=== PATIENT | female | born 1935 | race Caucasian/White ===

== ENCOUNTER → 2020-05-06 14:17 | Outpatient (BNVA) | payer MEDICARE, SELFPAY | PROVIDERS: Family Provider Family Medicine; Referring Provider Dermatology; Visit Provider Dermatology | DX: L57.0 Actinic keratosis (principal); L82.1 Other seborrheic keratosis; R23.3 Spontaneous ecchymoses; L72.0 Epidermal cyst; Z85.820 Personal history of malignant melanoma of skin | CPT/HCPCS: 99203 ==

== ENCOUNTER → 2020-07-07 13:23 | Outpatient (BNVA) | payer MEDICARE, SELFPAY | PROVIDERS: Family Provider Family Medicine; Visit Provider Dermatology | DX: D48.5 Neoplasm of uncertain behavior of skin (principal); L72.0 Epidermal cyst; L82.1 Other seborrheic keratosis; L57.0 Actinic keratosis; D48.9 Neoplasm of uncertain behavior, unspecified | CPT/HCPCS: 11102; 17000; 88304; 99213 ==

== ENCOUNTER → 2021-08-25 13:51 | Outpatient (BNVA) | payer MEDICARE, SELFPAY | PROVIDERS: Family Provider Family Medicine; Visit Provider Nurse Practitioner Family | DX: Z20.822 Contact with and (suspected) exposure to COVID-19 (principal); J06.9 Acute upper respiratory infection, unspecified | CPT/HCPCS: 87635 ==

== ENCOUNTER 2021-08-29 11:57 | Outpatient (CLI) | payer MEDICARE, SELFPAY ==
[2021-08-29 11:52] VITALS: BMI 19.3
[2021-08-29 12:10] VITALS: BP 142/70; PULSE 76; RESP 18; TEMP 36.8; O2SAT 98
[2021-08-29 12:51] VITALS: BP 138/71; PULSE 74; RESP 18; TEMP 37.4; O2SAT 96
[2021-08-29 13:52] VITALS: BP 152/71; PULSE 72; RESP 18; TEMP 36.4; O2SAT 98
== END 2021-08-29 11:58 | disposition home or self-care (01) ==
PROVIDERS: PCP Family Medicine; Visit Provider Nurse Practitioner Family
DX: U07.1 COVID-19 (principal)
CPT/HCPCS: 96365

== ENCOUNTER 2022-08-07 13:27 | Outpatient (CLI) | payer MEDICARE, SELFPAY ==
--- NOTE | 2022-08-07 13:35 | CTR_ITS ---
PROCEDURE INFORMATION: Exam: CT Chest Without Contrast; Diagnostic Exam date and time: 08/07/2022 1:47 PM Age: 87 years old Clinical indication: Cough; Prior surgery; Surgery type: RT breast; Patient HX: HX of melanoma; Additional info: Bronchiectasis, chronic cough TECHNIQUE: Imaging protocol: Diagnostic computed tomography of the chest without contrast. Radiation optimization: All CT scans at this facility use at least one of these dose optimization techniques: automated exposure control; mA and/or kV adjustment per patient size (includes targeted exams where dose is matched to clinical indication); or iterative reconstruction. COMPARISON: 1. CT chest wo con [id number] 03/06/2018 1:[address] angio chest PE protcl [id number] 04/06/2018 8:[address] chest w con* [id number] 11/28/2017 8:20 AM RADIATION DOSE METRICS: Total DLP (mGy-cm): 476.76 FINDINGS: Thyroid: 8 mm nodule lower pole left lobe of the thyroid not significantly changed. Consider non urgent thyroid ultrasound for evaluation if clinically indicated. Lungs: There is chronic atelectasis and scarring of the lingula with air bronchograms not significantly changed since 07/20/2017. There is new rounded atelectasis and consolidation anterior right middle lobe. Patchy pulmonary opacities, areas of bronchial wall thickening and tree-in-bud type centrilobular nodular opacities are seen worrisome for some bronchitis or infectious bronchiolitis. Follow-up imaging is suggested when the patient's condition has cleared to document clearing of all of the pulmonary nodular opacities. There is calcified granuloma right lower lobe. Pleural spaces: There is small right pleural effusion. There is a small right pleural effusion and possibly tiny left pleural effusion. Heart: Unremarkable. No cardiomegaly. No pericardial effusion. Lymph nodes: There are calcified hilar and mediastinal lymph nodes in keeping with old granulomatous disease. There are small mediastinal lymph nodes not significantly changed. Largest precarinal lymph node measures 13 x 20 mm which is similar to the previous exam. Vasculature: Unremarkable. No aortic aneurysm. Bones/joints: There is mild wedging compression deformity of T5 and moderate wedging compression of T8, these changes appear chronic but are new compared with 04/06/2018. Please correlate with the clinical exam. Soft tissues: Unremarkable. CT/CT chest wo con [id number] IMPRESSION: 1. Findings of bronchitis and bronchiolitis 2. Small right pleural effusion 3. Chronic scarring and atelectasis in the lingula 4. Small right pleural effusion 5. 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
== END 2022-08-07 13:28 | disposition home or self-care (01) ==
PROVIDERS: PCP Family Medicine; Visit Provider Internal Medicine
DX: J47.9 Bronchiectasis, uncomplicated (principal); M31.7 Microscopic polyangiitis; R04.2 Hemoptysis; J18.9 Pneumonia, unspecified organism; J21.9 Acute bronchiolitis, unspecified; J90 Pleural effusion, not elsewhere classified; M80.08XS Age-related osteoporosis with current pathological fracture, vertebra(e), sequela
CPT/HCPCS: 71250

== ENCOUNTER → 2022-09-15 10:12 | Day surgery (SDC) | payer MEDICARE, SELFPAY ==
[2022-09-15 10:30] VITALS: BP 132/71; PULSE 75; RESP 18; TEMP 36.7; O2SAT 93
[2022-09-15] MEDS: cefepime 1,000 MG in sodium chloride 0.9% (plus) 50 ML 100 MG IV (11:30)
[2022-09-15 12:15] LABS: Basophils % 0.1 %; Eosinophils # 0.1 10^3/uL (0.0-0.8); Eosinophils % 0.3 %; Hematocrit 35.3 % (37.0-47.0); Hemoglobin 11.3 g/dL (11.5-15.3); Lymphocytes # 1.3 10^3/uL (0.8-4.8); Mean Corpuscular Hemoglobin 30.2 pg (28.0-34.0); Mean Corpuscular Volume 94.4 fl (81-99); Mean Platelet Volume 9.3 fL (7.4-10.4); Monocytes # 0.5 10^3/uL (0.2-0.9); Monocytes % 3.5 %; Neutrophils # 12.67 10^3/uL (1.8-7.7); Neutrophils % 86.5 %; Nucleated Red Blood Cells % 0 %; Platelet Count 369 10^3/cmm (130-400); Red Blood Count 3.74 10^6/uL (4.1-5.3); Red Cell Distribution Width 14.6 % (12.1-15.1); White Blood Count 14.7 10^3/uL (4.0-10.0)
[2022-09-15 12:44] LABS: Alanine Aminotransferase 13 U/L (0-33); Albumin Level 3.5 g/dL (3.5-5.2); Alkaline Phosphatase 73 U/L (35-105); Anion Gap 13.4 (5-19); Aspartate Amino Transferase 10 U/L (0-32); Blood Urea Nitrogen 32 mg/dL (8-23); Calcium 8.9 mg/dL (8.5-10.5); Carbon Dioxide 29 mmol/L (22-29); Chloride 100 mmol/L (98-107); Globulin 2.9 g/dL (1.3-4.6); Glucose 110 mg/dL (65-115); Osmolality Calculated 294 mOsm/kg (285-295); Potassium 4.4 mmol/L (3.5-5.1); Sodium 138 mmol/L (136-145); Total Bilirubin 0.2 mg/dL (0.15-1.2); Total Protein 6.4 g/dL (6.6-8.7)
== END ==
PROVIDERS: PCP Family Medicine; Visit Provider Internal Medicine
DX: A49.8 Other bacterial infections of unspecified site (principal)
CPT/HCPCS: 36569; 80053; 85025; 96365; C1751; J0692

== ENCOUNTER 2022-09-29 10:00 | Outpatient (RCR) | payer MEDICARE, SELFPAY ==
[2022-09-18 13:20] VITALS: BP 158/87; PULSE 84; RESP 18; TEMP 36.7; O2SAT 95
[2022-09-22 11:09] LABS: Basophils # 0.1 10^3/uL (0.0-0.1); Basophils % 0.4 %; Eosinophils # 0.1 10^3/uL (0.0-0.8); Eosinophils % 0.5 %; Hemoglobin 11.5 g/dL (11.5-15.3); Lymphocytes # 2.3 10^3/uL (0.8-4.8); Lymphocytes % 16.3 %; Mean Corpuscular HGB Conc 31.1 g/dL (30.0-36.0); Mean Corpuscular Hemoglobin 29.8 pg (28.0-34.0); Mean Corpuscular Volume 95.9 fl (81-99); Mean Platelet Volume 9.5 fL (7.4-10.4); Monocytes # 0.5 10^3/uL (0.2-0.9); Monocytes % 3.4 %; Neutrophils % 78.5 %; Nucleated Red Blood Cells % 0 %; Platelet Count 464 10^3/cmm (130-400); Red Blood Count 3.86 10^6/uL (4.1-5.3); Red Cell Distribution Width 14.9 % (12.1-15.1); White Blood Count 14.2 10^3/uL (4.0-10.0)
[2022-09-22 11:30] LABS: Alanine Aminotransferase 10 U/L (0-33); Albumin Level 3.6 g/dL (3.5-5.2); Alkaline Phosphatase 71 U/L (35-105); Anion Gap 12.4 (5-19); Aspartate Amino Transferase 14 U/L (0-32); Blood Urea Nitrogen 36 mg/dL (8-23); Calcium 8.9 mg/dL (8.5-10.5); Carbon Dioxide 31 mmol/L (22-29); Chloride 101 mmol/L (98-107); Globulin 3.1 g/dL (1.3-4.6); Glucose 104 mg/dL (65-115); Osmolality Calculated 299 mOsm/kg (285-295); Potassium 4.4 mmol/L (3.5-5.1); Sodium 140 mmol/L (136-145); Total Bilirubin 0.2 mg/dL (0.15-1.2); Total Protein 6.7 g/dL (6.6-8.7)
[2022-09-22 11:33] VITALS: BP 170/74; PULSE 72; RESP 18; TEMP 36.1; O2SAT 97
[2022-09-29 10:14] VITALS: BP 178/75; PULSE 82; RESP 18; TEMP 36.7; O2SAT 95
--- NOTE | 2022-09-29 10:17 | SUR.OPER ---
Pt to GI infusions for removal of midline cath. Midline removed from left upper arm. 10 cm removed with cath intact. No signs and symptoms of infection or bleeding. Pt tolerated well.
== END 2022-10-14 23:59 | disposition home or self-care (01) ==
LOC: GILAB 10:00
PROVIDERS: PCP Family Medicine; Visit Provider Internal Medicine
DX: A49.8 Other bacterial infections of unspecified site (principal)
CPT/HCPCS: 36415; 80053; 85025; 99212

== ENCOUNTER → 2023-03-20 09:44 | Outpatient (BNVA) | payer MEDICARE, SELFPAY | PROVIDERS: PCP Family Medicine; Visit Provider Family Medicine | DX: Z00.00 Encounter for general adult medical examination without abnormal findings (principal); R53.83 Other fatigue; R06.00 Dyspnea, unspecified; H35.51 Vitreoretinal dystrophy; E55.9 Vitamin D deficiency, unspecified; I10 Essential (primary) hypertension; M31.30 Wegener's granulomatosis without renal involvement | CPT/HCPCS: 80053; 80061; 82306; 82607; 83880; 84443; 85025; 85651; 86140; 93306 ==

== ENCOUNTER 2023-05-03 16:42 | Inpatient (IN) | payer MEDICARE, SELFPAY ==
[2023-05-03 16:49] VITALS: BP 176/80; PULSE 87; RESP 22; TEMP 37.6; O2SAT 88
--- NOTE | 2023-05-03 17:45 | XRR_ITS ---
PROCEDURE INFORMATION: Exam: XR Chest Exam date and time: 05/03/2023 6:08 PM Age: 87 years old Clinical indication: Shortness of breath; Additional info: SOB TECHNIQUE: Imaging protocol: Radiologic exam of the chest. Views: 1 view. COMPARISON: CT chest [facility] [id number] 08/07/2022 1:47 PM FINDINGS: Lungs: Emphysematous changes. Bibasilar left greater than right atelectasis versus infiltrate. Pleural spaces: Unremarkable. No pleural effusion. No pneumothorax. Heart/Mediastinum: Unremarkable. No cardiomegaly. Bones/joints: Unremarkable. XR/XR chest 1V portable [id number] IMPRESSION: 1. Bibasilar left greater than right atelectasis versus infiltrate. 2. Emphysematous changes.
[2023-05-03 18:25] LABS: Basophils # 0.1 10^3/uL (0.0-0.1); Basophils % 0.4 %; Eosinophils # 0.2 10^3/uL (0.0-0.8); Eosinophils % 1.2 %; Hematocrit 45.6 % (37.0-47.0); Hemoglobin 14.4 g/dL (11.5-15.3); Lymphocytes # 2.2 10^3/uL (0.8-4.8); Lymphocytes % 13.1 %; Mean Corpuscular HGB Conc 31.6 g/dL (30.0-36.0); Mean Corpuscular Hemoglobin 30.4 pg (28.0-34.0); Mean Corpuscular Volume 96.2 fl (81-99); Mean Platelet Volume 10.5 fL (7.4-10.4); Monocytes # 0.9 10^3/uL (0.2-0.9); Monocytes % 5.5 %; Neutrophils # 13.64 10^3/uL (1.8-7.7); Neutrophils % 79.4 %; Nucleated Red Blood Cells % 0 %; Platelet Count 424 10^3/cmm (130-400); Red Blood Count 4.74 10^6/uL (4.1-5.3); Red Cell Distribution Width 13.8 % (12.1-15.1); White Blood Count 17.1 10^3/uL (4.0-10.0)
[2023-05-03 19:15] VITALS: BP 164/73; PULSE 66; RESP 25; O2SAT 94
[2023-05-03 19:25] LABS: Albumin Level 3.7 g/dL (3.5-5.2); Alkaline Phosphatase 87 U/L (35-105); Anion Gap 12.4 (5-19); Aspartate Amino Transferase 15 U/L (0-32); Blood Urea Nitrogen 25 mg/dL (8-23); Calcium 8.8 mg/dL (8.5-10.5); Carbon Dioxide 31 mmol/L (22-29); Chloride 99 mmol/L (98-107); Globulin 2.7 g/dL (1.3-4.6); Glucose 98 mg/dL (65-115); NT Pro B Type Natriuretic Pept 1814 pg/mL (0-450); Osmolality Calculated 290 mOsm/kg (285-295); Potassium 4.4 mmol/L (3.5-5.1); Sodium 138 mmol/L (136-145); Total Bilirubin 0.3 mg/dL (0.15-1.2); Total Protein 6.4 g/dL (6.6-8.7)
[2023-05-03 19:35] LABS: Alanine Aminotransferase 17 U/L (0-33)
[2023-05-03] MEDS: FUROsemide 10 mg/mL SDV 4mL 40 MG IVP (21:05)
[2023-05-03] MEDS: cefTRIAXone 1,000 MG in sodium chloride 0.9% (plus) 50 ML 100 MG IV (21:05)
--- NOTE | 2023-05-03 21:11 | PM.HP ---
Providers/Chief Complaint Admitting Physician: Jose F Dias MD, hospitalist Primary Care Provider: Chet Stallings MD Chief Complaint: Cough, congestion History of Present Illness Germaine Galvez is a 87 year old female with history of Davi's granulomatosis affecting kidneys and lungs who presents with shortness of breath for the last week or so. She was put on 2 L of oxygen yesterday secondary to this. She has had purulent sputum production. She has had temperature elevations, and some chills. She has had no documented fever or temperature greater than 100.4. She reports no vomiting. She states she is significantly short of breath when moving about and wheezing more than usual. She has been compliant with her medication. She last had antibiotics and steroids, around the first week of March. Review of Systems General: Reports: 10 or more systems reviewed and unremarkable except in HPI and below Card: Denies: chest pain Resp: Reports: dyspnea, productive cough and wheezing GI: Denies: abdominal pain, nausea, vomiting, hematochezia or melena Medications/Allergies Home Medications Medication Instructions Recorded Confirmed Last Taken Type carvedilol 25 mg tablet 25 mg PO BID 05/06/20 03/20/23 09/18/22 History lisinopril 10 mg tablet 5 mg PO DAILY 05/06/20 03/20/23 09/18/22 History brimonidine 0.2 %-timolol 0.5 % 1 drp ophthalmic (eye) BID 05/03/21 03/20/23 09/18/22 History eye drops (Combigan) latanoprost 0.005 % eye drops 1 drp ophthalmic (eye) DAILY 05/09/22 03/20/23 09/18/22 History fluticasone furoate 100 1 inh inhalation DAILY 03/20/23 03/20/23 Unknown History mcg-vilanterol 25 mcg/dose inhalation powder (Breo Ellipta) azithromycin 250 mg tablet See Rx Instructions PO .COMPLEX #6 03/21/23 Unknown Rx (Zithromax Z-Flex) tabs prednisone 20 mg tablet See Rx Instructions .Route 04/09/23 Unknown Rx .COMPLEX #5 tabs Allergies Allergy/AdvReac Type Severity Reaction Status Date / Time sulfamethoxazole Allergy ALGY-Rash Verified 05/03/23 16:56 [From Bactrim] trimethoprim [From Bactrim] Allergy ALGY-Rash Verified 05/03/23 16:56 PFSH Acute PFSH: Medical History Cataract History of malignant melanoma Hypertension Urrutia syndrome Davi's granulomatosis Surgical History H/O lumpectomy H/O: hysterectomy Family History Mother Diabetes Social History Smoking and tobacco status: never smoked Alcohol intake: never Vitals/I&O/Wt Last Vital Signs Temp 99.6 F 05/03/23 16:49 Pulse 66 05/03/23 19:15 Resp 25 H 05/03/23 19:15 BP 164/73 05/03/23 19:15 Pulse Ox 94 05/03/23 19:15 O2 Del Method Room Air 05/03/23 16:49 Weight last 48 hrs Weight 44.452 kg Physical Exam Narrative: General exam is a white female, currently on 2 L of oxygen with a saturation of about 92 percent. According to the emergency department she was less than 88% on room air. HEENT: Atraumatic and normocephalic. Oropharynx clear. Neck is supple no lymphadenopathy or thyromegaly Cardiovascular regular rate and rhythm, heart sounds distant, no murmur Lungs bilateral expiratory wheezes. Rhonchi at the bases. Occasional end expiratory wheeze Abdomen is soft with positive bowel sounds. No obvious organomegaly exam was deferred Extremities no cyanosis, edema, cap refill brisk Skin no rash Neuro no obvious focal deficits Data 05/03/23 18:08 05/03/23 18:47 Other Labs: LFTs are normal BNP elevated at 1814 Albumin, calcium is normal I have ordered a urinalysis Chest x-ray which I reviewed demonstrates left infiltrate. Scarring noted bilaterally consistent with emphysema changes. No evidence of cardiomegaly or fluid overload. No blood culture was obtained A&P Assessment and plan (1) Pneumonia: Patient has an elevated white count, somewhat higher than her normal chronic elevation. She has been feeling ill at home, has hypoxia, is currently requiring 2 L, and an elevated temperature although she has not exceeded above 100.4. An infiltrate is noted on her x-ray, mostly in her left lower lobe. 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 At this point we will give her IV steroids. She has received Solu-Medrol through the emergency department. Continue prednisone 60 mg daily She received Lasix 40 mg IV in the emergency department secondary to elevated BNP. Will not continue at this time. Will assess clinically. BNP elevation likely secondary to pulmonary hypertension from her chronic lung disease. She has had a recent echocardiogram, demonstrating normal EF. She has no evidence of fluid overload on exam. She has past history of Pseudomonas in her sputum. Will initiate Zosyn. Check COVID PCR, sputum culture, MRSA PCR. Budesonide twice daily DuoNeb every 6 hours (2) Davi's granulomatosis: See above (3) Hypoxia: 2 L of oxygen currently, titrate as needed Plan Other medical problems as outlined in past medical history Full code currently Lovenox for DVT prophylaxis Attestations Medical Necessity Statement*: Will require greater than 2 midnights stay secondary to pneumonia requiring IV antibiotics, Davi's granulomatosis history requiring steroids, hypoxia requiring oxygen Diagnoses Pneumonia J18.9 Davi's granulomatosis M31.30 Hypoxia R09.02 Time Spent (min) 51
[2023-05-03] MEDS: methylPREDNISolone sod succ 40 mg SDV 60 MG IVP (21:42)
[2023-05-03 21:59] VITALS: BP 154/66; PULSE 81; RESP 30; O2SAT 92
[2023-05-03 22:37] VITALS: BP 175/81; PULSE 75; RESP 15; TEMP 37.1; O2SAT 95
[2023-05-03] MEDS: piperacillin-tazobactam 3.375 GM in sodium chloride 0.9% (plus) 50 ML IV (22:48)
[2023-05-03] MEDS: enoxaparin 40 mg/0.4 mL Syringe SUBCUT (23:06)
--- NOTE | 2023-05-03 23:51 | ED_ITS ---
HPI - SOB/Dyspnea General: Chief Complaint: Shortness of Breath/Dyspnea Stated Complaint: Cough, congestion Time Seen by Provider: 05/03/23 17:40 History of Present Illness: HPI Narrative: 87-year-old female with complex medical history including Urrutia disease presents emergency room with cough and shortness of breath for the past few days. Patient describes cough as productive cough but denies coughing up blood or vomiting blood. Upon present emergency room patient was found to be hypoxic with any sick contact or recent foreign travel. No recent antibiotics Related Data: Home oxygen amount: 2 liters Review of Systems General: Reports: 10 or more systems reviewed and unremarkable except in HPI and below Resp: Reports: dyspnea and productive cough; Denies: non-productive cough, wheezing, stridor, pain on inspiration or change in phlegm color PFSH ED PFSH: Medical History Cataract History of malignant melanoma Hypertension Urrutia syndrome Davi's granulomatosis Surgical History H/O lumpectomy H/O: hysterectomy Family History Mother Diabetes Social History Smoking and tobacco status: never smoked Alcohol intake: never Physical Exam Const: COMMON NORMALS: no acute distress, average body habitus, patient oriented x3, no limitations, healthy appearing, alert and well nourished HENMT: COMMON NORMALS: normocephalic, atraumatic, hearing grossly normal bilaterally, external ears normal, EAC's normal, TM's normal bilaterally, Normal external nose present, Normal nasal mucous membranes and turbinates present, moist oral mucous membranes, oropharynx normal, dentition normal and gingiva normal HEAD & SCALP: normocephalic and atraumatic NOSE: Normal external nose present and Normal nasal mucous membranes and turbinates present EXTERNAL EAR: Yes external ears normal EXTERNAL AUDITORY CANAL: EAC's normal TYMPANIC MEMBRANE: TM's normal bilaterally Neck/C-Spine: COMMON NORMALS: no JVD Resp: COMMON NORMALS: normal respiratory effort and No retractions AUSCULTATION: no crackles, no rales, no rhonchi, no wheezes, breath sounds present, diminished lung sounds and no bronchial breath sounds Cardio: COMMON NORMALS: no JVD, regular rate, regular rhythm, S1 normal heart sound present, S2 normal heart sound present, No gallops present (Cardio), No clicks present (Cardio), No murmurs present (Cardio), No rub (Cardio) and Peripheral pulses 2+ throughout RATE: regular rate RHYTHM: regular rhythm HEART SOUNDS: S1 normal heart sound present and S2 normal heart sound present PERIPHERAL PULSES: Peripheral pulses 2+ throughout Extremity: COMMON NORMALS: normal to inspection, full ROM, capillary refill normal, no joint enlargement, no clubbing, cyanosis or edema, no calf tenderness and no pedal edema Neuro: COMMON NORMALS: patient oriented x3 SENSORIUM/ORIENTATION: Yes alert Skin: COMMON NORMALS: no rashes or lesions noted, no wounds, turgor normal, no jaundice, no petechiae and no mottling GENERAL SKIN EXAM: no rashes or lesions noted and turgor normal Course Reevaluation(s): Reevaluation #1: Patient improved while on oxygen. Consultations: Consultation #1: Discussed patient with the hospitalist. Vital Signs: Vital signs: Vital Signs Temperature 97.8 F 05/05/23 20:00 Pulse Rate 80 05/05/23 20:13 Respiratory Rate 18 05/05/23 20:13 Blood Pressure 165/94 05/05/23 20:00 Pulse Oximetry 94 05/05/23 20:13 Oxygen Delivery Me thod Nasal Cannula 05/05/23 20:13 Oxygen Flow Rate 2 05/05/23 20:13 MDM - SOB/Dyspnea Medical Decision Making Made comfortable emergency room, and had extensive work-up done including labs, EKG and x-ray. I was able to review previous medical records. Discussed the labs and EKG findings with family. Discussed patient with the hospitalist. Was given IV antibiotics and Lasix. Differential Diagnosis Likely acute exacerbation of chronic obstructive airways disease, congestive heart failure, community acquired pneumonia, asthma with exacerbation and pulmonary embolism Lab Data 05/05/23 06:14 05/05/23 06:14 Labs/Radiology: Radiology Impressions Chest X-Ray 05/03/23 17:45 IMPRESSION: 1. Bibasilar left greater than right atelectasis versus infiltrate. 2. Emphysematous changes. Laboratory Results WBC 17.1 10^3/uL (4.0-10.0) H 05/03/23 18:08 RBC 4.74 10^6/uL (4.1-5.3) 05/03/23 18:08 Hgb 14.4 g/dL (11.5-15.3) 05/03/23 18:08 Hct 45.6 % (37.0-47.0) 05/03/23 18:08 MCV 96.2 fl (81-99) 05/03/23 18:08 MCH 30.4 pg (28.0-34.0) 05/03/23 18:08 MCHC 31.6 g/dL (30.0-36.0) 05/03/23 18:08 RDW 13.8 % (12.1-15.1) 05/03/23 18:08 Plt Count 424 10^3/cmm (130-400) H 05/03/23 18:08 MPV 10.5 fL (7.4-10.4) H 05/03/23 18:08 Neut % (Auto) 79.4 % 05/03/23 18:08 Lymph % (Auto) 13.1 % 05/03/23 18:08 Vermilion % (Auto) 5.5 % 05/03/23 18:08 Eos % (Auto) 1.2 % 05/03/23 18:08 Baso % (Auto) 0.4 % 05/03/23 18:08 Neut # (Auto) 13.64 10^3/uL (1.8-7.7) H 05/03/23 18:08 Lymph # (Auto) 2.2 10^3/uL (0.8-4.8) 05/03/23 18:08 Vermilion # (Auto) 0.9 10^3/uL (0.2-0.9) 05/03/23 18:08 Eos # (Auto) 0.2 10^3/uL (0.0-0.8) 05/03/23 18:08 Baso # (Auto) 0.1 10^3/uL (0.0-0.1) 05/03/23 18:08 Nucleated RBC % (auto) 0 % 05/03/23 18:08 Nucleated RBCs # 0.0 /100WBC 05/03/23 18:08 Sodium 138 mmol/L (136-145) 05/03/23 18:47 Potassium 4.4 mmol/L (3.5-5.1) 05/03/23 18:47 Chloride 99 mmol/L (98-107) 05/03/23 18:47 Carbon Dioxide 31 mmol/L (22-29) H 05/03/23 18:47 Anion Gap 12.4 (5-19) 05/03/23 18:47 BUN 25 mg/dL (8-23) H 05/03/23 18:47 Creatinine 0.7 mg/dL (0.5-0.9) 05/03/23 18:47 GFR Calculation Not Reportable 05/03/23 18:47 Glucose 98 mg/dL (65-115) 05/03/23 18:47 Calculated Osmolality 290 mOsm/kg (285-295) 05/03/23 18:47 Calcium 8.8 mg/dL (8.5-10.5) 05/03/23 18:47 Total Bilirubin 0.3 mg/dL (0.15-1.2) 05/03/23 18:47 AST 15 U/L (0-32) 05/03/23 18:47 ALT 17 U/L (0-33) 05/03/23 18:47 Alkaline Phosphatase 87 U/L (35-105) 05/03/23 18:47 NT-Pro-B Natriuret Pep 1814 pg/mL (0-450) H 05/03/23 18:47 Total Protein 6.4 g/dL (6.6-8.7) L 05/03/23 18:47 Albumin 3.7 g/dL (3.5-5.2) 05/03/23 18:47 Globulin 2.7 g/dL (1.3-4.6) 05/03/23 18:47 Discharge Plan Discharge Patient Disposition: Admitted As Inpatient Admit Provider: Jose F Dias Clinical Impression: Davi's granulomatosis, Pneumonia, Hypoxia Condition: Stable Coding Level of Care Code ED P[facility]er for Bella Hammer
[2023-05-04] VITALS (10 sets, daily range): BP systolic 107–175; BP diastolic 59–81; PULSE 71–90; RESP 15–20; TEMP 36.1–37.1; O2SAT 90–96
[2023-05-04 02:21] LABS: Adenovirus Not Detected (NOT DETECT); Chlamydia Pneumoniae Not Detected (NOT DETECT); Coronavirus 229E,HKU1,NL63,OC4 Not Detected (NOT DETECT); Human Metapneumovirus Not Detected (NOT DETECT); Human Rhinovirus/Enterovirus Detected (NOT DETECT); Influenza A Not Detected (NOT DETECT); Influenza A H1 Not Detected (NOT DETECT); Influenza A H1-2009 Not Detected (NOT DETECT); Influenza A H3 Not Detected (NOT DETECT); Influenza B Not Detected (NOT DETECT); Mycoplasma Pneumoniae Not Detected (NOT DETECT); Parainfluenza Virus Type 1 Not Detected (NOT DETECT); Parainfluenza Virus Type 2 Not Detected (NOT DETECT); Parainfluenza Virus Type 3 Not Detected (NOT DETECT); Parainfluenza Virus Type 4 Not Detected (NOT DETECT); Respiratory Syncytial Virus A Not Detected (NOT DETECT); Respiratory Syncytial Virus B Not Detected (NOT DETECT); SARS-COV-2 Not Detected (NOT DETECT)
[2023-05-04] MEDS: ipratropium-albuterol 3 mL Neb INHALATION ×4 (02:53→20:50)
[2023-05-04] MEDS: piperacillin-tazobactam 3.375 GM in sodium chloride 0.9% (plus) 50 ML IV ×3 (06:22→22:07)
[2023-05-04 07:29] LABS: Basophils % 0.1 %; Hematocrit 40.4 % (37.0-47.0); Hemoglobin 12.5 g/dL (11.5-15.3); Lymphocytes # 1.4 10^3/uL (0.8-4.8); Mean Corpuscular HGB Conc 30.9 g/dL (30.0-36.0); Mean Corpuscular Hemoglobin 29.6 pg (28.0-34.0); Mean Corpuscular Volume 95.7 fl (81-99); Mean Platelet Volume 10.3 fL (7.4-10.4); Monocytes # 0.1 10^3/uL (0.2-0.9); Monocytes % 0.4 %; Neutrophils # 12.45 10^3/uL (1.8-7.7); Nucleated Red Blood Cells % 0 %; Platelet Count 356 10^3/cmm (130-400); Red Blood Count 4.22 10^6/uL (4.1-5.3); Red Cell Distribution Width 13.6 % (12.1-15.1)
[2023-05-04 08:04] LABS: Alanine Aminotransferase 18 U/L (0-33); Albumin Level 3.8 g/dL (3.5-5.2); Alkaline Phosphatase 96 U/L (35-105); Anion Gap 13.5 (5-19); Aspartate Amino Transferase 18 U/L (0-32); Blood Urea Nitrogen 27 mg/dL (8-23); Calcium 9.3 mg/dL (8.5-10.5); Carbon Dioxide 34 mmol/L (22-29); Chloride 98 mmol/L (98-107); Globulin 2.3 g/dL (1.3-4.6); Glucose 161 mg/dL (65-115); Magnesium 2.1 mg/dL (1.7-2.3); Osmolality Calculated 301 mOsm/kg (285-295); Potassium 4.5 mmol/L (3.5-5.1); Sodium 141 mmol/L (136-145); Total Bilirubin 0.2 mg/dL (0.15-1.2); Total Protein 6.1 g/dL (6.6-8.7)
--- NOTE | 2023-05-04 08:19 | PC.PHAR ---
Addendum entered by Ivette Valera 05/04/23 08:20: pt states she is not currently taking any antibiotics or steroids Original Note: pt states she takes care of her own medications-medications entered are what pt states she takes and what ext med history shows has been filled recently
[2023-05-04] MEDS: predniSONE 20 mg Tablet 60 MG PO (08:51)
[2023-05-04] MEDS: carvedilol 25 mg Tablet PO ×2 (08:51→17:08)
[2023-05-04] MEDS: lisinopril 10 mg Tablet 5 MG PO (08:52)
--- NOTE | 2023-05-04 13:10 | PM.PN ---
Subjective Subjective: Patient was seen and examined this morning she denied any hemoptysis, has been afebrile, denied any significant shortness of breath, coughing has improved, white blood cell count is trending down, urine has not been collected so far to evaluate for hematuria.Respiratory viral panel is positive for rhinovirus. MRSA PCR negative, sputum Gram stain showing: Rare gram-positive cocci. Will add vancomycin for broader antibiotic coverage. 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 Currently saturating well on minimal supplemental oxygen. 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 Medications: Medication Review Details: Generic Name Dose Route Start Last Admin Trade Name Freq PRN Reason Stop Dose Admin Albuterol/Ipratrop ium 3 ml 05/04/23 02:00 05/04/23 08:16 Ipratropium-Albu terol 3 Ml Neb INHALATION 3 ml Q6H.RESP ANDIE Administration Budesonide 0.5 mg 05/04/23 09:00 05/04/23 08:16 Budesonide 0.5 M g/2 Ml Neb INHALATION Not Given BID ANDIE Carvedilol 25 mg 05/04/23 09:00 05/04/23 08:51 Carvedilol 25 Mg Tablet PO 25 mg BID ANDIE Administration Enoxaparin Sodium 40 mg 05/03/23 22:37 05/03/23 23:06 Enoxaparin 40 Mg /0.4 Ml Syringe SUBCUT 40 mg Q24H ANDIE Administration Piperacillin Sod/T azobactam 50 mls @ 12.5 mls /hr 05/03/23 21:30 05/04/23 10:57 Sod 3.375 gm/ So dium Chloride IV Infused Q8H ANDIE Infusion Lisinopril 5 mg 05/04/23 09:00 05/04/23 08:52 Lisinopril 10 Mg Tablet PO 5 mg DAILY ANDIE Administration Prednisone 60 mg 05/04/23 09:00 05/04/23 08:51 Prednisone 20 Mg Tablet PO 60 mg DAILY ANDIE Administration Vitals/I&O/Wt Last Vital Signs Temp 97.0 F L 05/04/23 12:00 Pulse 71 05/04/23 12:00 Resp 18 05/04/23 12:00 BP 107/65 05/04/23 12:00 Pulse Ox 96 05/04/23 12:00 O2 Del Method Room Air 05/04/23 12:00 O2 Flow Rate 3 05/04/23 08:16 05/03/23 05/04/23 05/04/23 22:59 06:59 14:59 Intake Total 50 / 50 50 / 100 890 / 890 Balance 50 / 50 50 / 100 890 / 890 Weight last 48 hrs Weight 44.452 kg Physical Exam Const: COMMON NORMALS: patient oriented x3 HENMT: COMMON NORMALS: normocephalic and atraumatic HEAD & SCALP: normocephalic and atraumatic Resp: COMMON NORMALS: clear to auscultation bilaterally AUSCULTATION: clear to auscultation bilaterally Cardio: COMMON NORMALS: regular rate, regular rhythm, S1 normal heart sound present, S2 normal heart sound present, No gallops present (Cardio), No murmurs present (Cardio), No rub (Cardio) and Peripheral pulses 2+ throughout RATE: regular rate RHYTHM: regular rhythm HEART SOUNDS: S1 normal heart sound present and S2 normal heart sound present PERIPHERAL PULSES: Peripheral pulses 2+ throughout GI: COMMON NORMALS: Normal to inspection, nondistended, normoactive bowel sounds present, Soft to palpation, non-tender, No hepatosplenomegaly present and no masses AUSCULTATION: Yes normoactive bowel sounds PALPATION: Yes Soft to palpation and Yes No hepatosplenomegaly present RECTAL EXAM: deferred Extremity: COMMON NORMALS: no clubbing, cyanosis or edema and no pedal edema Neuro: COMMON NORMALS: patient oriented x3 Data 05/04/23 06:54 05/04/23 06:54 A&P Assessment and plan (1) Pneumonia: Patient has an elevated white count, somewhat higher than her normal chronic elevation. She has been feeling ill at home, has hypoxia, is currently requiring 2 L, and an elevated temperature although she has not exceeded above 100.4. An infiltrate is noted on her x-ray, mostly in her left lower lobe. 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 At this point we will give her IV steroids. She has received Solu-Medrol through the emergency department. Continue prednisone 60 mg daily She received Lasix 40 mg IV in the emergency department secondary to elevated BNP. Will not continue at this time. Will assess clinically. BNP elevation likely secondary to pulmonary hypertension from her chronic lung disease. She has had a recent echocardiogram, demonstrating normal EF. She has no evidence of fluid overload on exam. She has past history of Pseudomonas in her sputum. Will initiate Zosyn. Check COVID PCR, sputum culture, MRSA PCR. Budesonide twice daily DuoNeb every 6 hours (2) Davi's granulomatosis: See above (3) Hypoxia: 2 L of oxygen currently, titrate as needed Plan Other medical problems as outlined in past medical history Full code currently Lovenox for DVT prophylaxis Attestations Medical Necessity Statement*: In hospital for IV antibiotics. Coding Level of Care Code Acute Code for [facility] Diagnoses Pneumonia J18.9 Davi's granulomatosis M31.30 Hypoxia R09.02
[2023-05-04] MEDS: vancomycin 750 MG in sodium chloride 0.9% 250 ML 250 MG IV (19:26)
[2023-05-04] MEDS: budesonide 0.5 mg/2 mL Neb INHALATION (20:50)
[2023-05-04] MEDS: enoxaparin 30 mg/0.3 mL Syringe SUBCUT (22:07)
[2023-05-05] VITALS (10 sets, daily range): BP systolic 129–172; BP diastolic 62–94; PULSE 61–90; RESP 15–18; TEMP 36.6–36.8; O2SAT 92–99
[2023-05-05] MEDS: piperacillin-tazobactam 3.375 GM in sodium chloride 0.9% (plus) 50 ML IV ×3 (06:15→22:41)
[2023-05-05 06:26] LABS: Basophils % 0.2 %; Eosinophils % 0.1 %; Hematocrit 38.6 % (37.0-47.0); Hemoglobin 12.3 g/dL (11.5-15.3); Lymphocytes # 2.3 10^3/uL (0.8-4.8); Lymphocytes % 12.2 %; Mean Corpuscular HGB Conc 31.9 g/dL (30.0-36.0); Mean Corpuscular Hemoglobin 30.6 pg (28.0-34.0); Mean Platelet Volume 10.1 fL (7.4-10.4); Monocytes % 5.4 %; Neutrophils # 15.68 10^3/uL (1.8-7.7); Neutrophils % 81.5 %; Nucleated Red Blood Cells % 0 %; Platelet Count 357 10^3/cmm (130-400); Red Blood Count 4.02 10^6/uL (4.1-5.3); Red Cell Distribution Width 13.7 % (12.1-15.1); White Blood Count 19.2 10^3/uL (4.0-10.0)
[2023-05-05 07:00] LABS: Alanine Aminotransferase 17 U/L (0-33); Albumin Level 3.5 g/dL (3.5-5.2); Alkaline Phosphatase 77 U/L (35-105); Anion Gap 12.2 (5-19); Aspartate Amino Transferase 14 U/L (0-32); Blood Urea Nitrogen 36 mg/dL (8-23); Calcium 8.7 mg/dL (8.5-10.5); Carbon Dioxide 34 mmol/L (22-29); Chloride 99 mmol/L (98-107); Glucose 103 mg/dL (65-115); Osmolality Calculated 301 mOsm/kg (285-295); Potassium 4.2 mmol/L (3.5-5.1); Sodium 141 mmol/L (136-145); Total Bilirubin 0.2 mg/dL (0.15-1.2); Total Protein 5.5 g/dL (6.6-8.7)
[2023-05-05] MEDS: budesonide 0.5 mg/2 mL Neb INHALATION ×2 (09:20→20:13)
[2023-05-05] MEDS: ipratropium-albuterol 3 mL Neb INHALATION ×3 (09:20→20:13)
[2023-05-05] MEDS: carvedilol 25 mg Tablet PO ×2 (09:28→17:12)
[2023-05-05] MEDS: predniSONE 20 mg Tablet 60 MG PO (09:29)
[2023-05-05] MEDS: lisinopril 10 mg Tablet PO (09:29)
[2023-05-05] MEDS: benzonatate 100 mg Capsule 200 MG PO (15:50)
--- NOTE | 2023-05-05 17:52 | P.PN_ITS ---
Subjective Subjective: Patient was seen and examined this morning denied any significant SOB, no hemoptysis, no blood in sputum,denied any hematuria,U.A is still pending, WBC has gone up is at 19.2, potential cause could be steroid use,currently she is empirically covered with broad spectrum abxs,sputum gram stain has shown GNR.She is requiring minimum supplemental oxygen and has been afebrile. Medications: Medication Review Details: Generic Name Dose Route Start Last Admin Trade Name Airam PRN Reason Stop Dose Admin Albuterol/Ipratrop ium 3 ml 05/04/23 02:00 05/04/23 08:16 Ipratropium-Albu terol 3 Ml Neb INHALATION 3 ml Q6H.RESP ANDIE Administration Budesonide 0.5 mg 05/04/23 09:00 05/04/23 08:16 Budesonide 0.5 M g/2 Ml Neb INHALATION Not Given BID ANDIE Carvedilol 25 mg 05/04/23 09:00 05/04/23 08:51 Carvedilol 25 Mg Tablet PO 25 mg BID ANDIE Administration Enoxaparin Sodium 40 mg 05/03/23 22:37 05/03/23 23:06 Enoxaparin 40 Mg /0.4 Ml Syringe SUBCUT 40 mg Q24H ANDIE Administration Piperacillin Sod/T azobactam 50 mls @ 12.5 mls /hr 05/03/23 21:30 05/04/23 10:57 Sod 3.375 gm/ So dium Chloride IV Infused Q8H ANDIE Infusion Lisinopril 5 mg 05/04/23 09:00 05/04/23 08:52 Lisinopril 10 Mg Tablet PO 5 mg DAILY ANDIE Administration Prednisone 60 mg 05/04/23 09:00 05/04/23 08:51 Prednisone 20 Mg Tablet PO 60 mg DAILY ANDIE Administration Vitals/I&O/Wt Last Vital Signs Temp 98.2 F 05/05/23 16:02 Pulse 67 05/05/23 16:02 Resp 18 05/05/23 16:02 BP 161/78 05/05/23 16:02 Pulse Ox 96 05/05/23 16:02 O2 Del Method Nasal Cannula 05/05/23 16:02 O2 Flow Rate 2 05/05/23 13:15 05/05/23 05/05/23 05/05/23 06:59 14:59 22:59 Intake Total 50 / 1720 1010 / 1010 Balance 50 / 1720 1010 / 1010 Physical Exam Const: COMMON NORMALS: patient oriented x3 HENMT: COMMON NORMALS: normocephalic and atraumatic HEAD & SCALP: normocephalic and atraumatic Resp: OTHER: b/l fine crackles in both the lungs zhu. Cardio: COMMON NORMALS: regular rate, regular rhythm, S1 normal heart sound present, S2 normal heart sound present, No gallops present (Cardio), No murmurs present (Cardio), No rub (Cardio) and Peripheral pulses 2+ throughout RATE: regular rate RHYTHM: regular rhythm HEART SOUNDS: S1 normal heart sound present and S2 normal heart sound present PERIPHERAL PULSES: Peripheral pulses 2+ throughout GI: COMMON NORMALS: Normal to inspection, nondistended, normoactive bowel sounds present, Soft to palpation, non-tender, No hepatosplenomegaly present and no masses AUSCULTATION: Yes normoactive bowel sounds PALPATION: Yes Soft to palpation and Yes No hepatosplenomegaly present RECTAL EXAM: deferred Extremity: COMMON NORMALS: no clubbing, cyanosis or edema and no pedal edema Neuro: COMMON NORMALS: patient oriented x3 Data 05/05/23 06:14 05/05/23 06:14 Micro: Microbiology 05/04/23 02:20 Gram Stain - Final Sputum - Expectorated Sputum Sputum Culture - Preliminary Gram Negative Rods 05/03/23 Unknown MRSA Culture - Final Nose A&P Assessment and plan (1) Pneumonia: Patient has an elevated white count, somewhat higher than her normal chronic elevation. She has been feeling ill at home, has hypoxia, is currently requiring 2 L, and an elevated temperature although she has not exceeded above 100.4. An infiltrate is noted on her x-ray, mostly in her left lower lobe. 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 At this point we will give her IV steroids. She has received Solu-Medrol through the emergency department. Continue prednisone 60 mg daily She received Lasix 40 mg IV in the emergency department secondary to elevated BNP. Will not continue at this time. Will assess clinically. BNP elevation likely secondary to pulmonary hypertension from her chronic lung disease. She has had a recent echocardiogram, demonstrating normal EF. She has no evidence of fluid overload on exam. She has past history of Pseudomonas in her sputum. Will initiate Zosyn. Check COVID PCR, sputum culture, MRSA PCR. Budesonide twice daily DuoNeb every 6 hours (2) Davi's granulomatosis: See above (3) Hypoxia: 2 L of oxygen currently, titrate as needed Plan Other medical problems as outlined in past medical history Full code currently Lovenox for DVT prophylaxis Attestations Medical Necessity Statement*: Needs to be in hospital for the management of PNA,and need for I.V Abxs Coding Level of Care Code Acute Code for [facility] Diagnoses Pneumonia J18.9 Davi's granulomatosis M31.30 Hypoxia R09.02
[2023-05-05] MEDS: lisinopril 20 mg Tablet PO (18:14)
[2023-05-05] MEDS: enoxaparin 30 mg/0.3 mL Syringe SUBCUT (22:41)
[2023-05-06] VITALS (11 sets, daily range): BP systolic 148–201; BP diastolic 65–82; PULSE 63–87; RESP 16–20; TEMP 36.3–37.1; O2SAT 93–98
[2023-05-06 01:28] LABS: Urine Appearance Clear (CLEAR); Urine Color Colorless (Yellow)
[2023-05-06 01:29] LABS: Bilirubin Urine Neg (Negative); Blood Urine Neg (Negative); Glucose Urine UA Norm (Normal); Ketones Urine Negative (Negative); Leukocyte Esterase Urine Negative (Negative); Nitrate Urine Negative (Negative); Protein Urine Neg (Negative); Specific Gravity, Urine 1.015 (1.005-1.030); Urobilinogen Urine Norm (Negative); pH Urine 5 (5-7)
[2023-05-06 01:32] LABS: Bacteria Urine TRACE /hpf
[2023-05-06 04:11] LABS: Basophils % 0.1 %; Eosinophils % 0.1 %; Hematocrit 40.7 % (37.0-47.0); Hemoglobin 12.4 g/dL (11.5-15.3); Lymphocytes # 2.6 10^3/uL (0.8-4.8); Lymphocytes % 13.8 %; Mean Corpuscular HGB Conc 30.5 g/dL (30.0-36.0); Mean Corpuscular Hemoglobin 29.5 pg (28.0-34.0); Mean Corpuscular Volume 96.7 fl (81-99); Mean Platelet Volume 10.3 fL (7.4-10.4); Monocytes # 0.6 10^3/uL (0.2-0.9); Neutrophils # 15.29 10^3/uL (1.8-7.7); Neutrophils % 82.5 %; Nucleated Red Blood Cells % 0 %; Platelet Count 392 10^3/cmm (130-400); Red Blood Count 4.21 10^6/uL (4.1-5.3); Red Cell Distribution Width 13.5 % (12.1-15.1); White Blood Count 18.5 10^3/uL (4.0-10.0)
[2023-05-06 04:38] LABS: Alanine Aminotransferase 24 U/L (0-33); Albumin Level 3.6 g/dL (3.5-5.2); Alkaline Phosphatase 90 U/L (35-105); Anion Gap 11.9 (5-19); Aspartate Amino Transferase 22 U/L (0-32); Blood Urea Nitrogen 38 mg/dL (8-23); Calcium 8.8 mg/dL (8.5-10.5); Carbon Dioxide 35 mmol/L (22-29); Chloride 100 mmol/L (98-107); Globulin 2.6 g/dL (1.3-4.6); Glucose 101 mg/dL (65-115); Osmolality Calculated 303 mOsm/kg (285-295); Potassium 4.9 mmol/L (3.5-5.1); Sodium 142 mmol/L (136-145); Total Bilirubin 0.2 mg/dL (0.15-1.2); Total Protein 6.2 g/dL (6.6-8.7)
[2023-05-06] MEDS: piperacillin-tazobactam 3.375 GM in sodium chloride 0.9% (plus) 50 ML IV ×2 (06:28→21:59)
[2023-05-06] MEDS: vancomycin 750 MG in sodium chloride 0.9% 250 ML 250 MG IV (07:47)
[2023-05-06] MEDS: ipratropium-albuterol 3 mL Neb INHALATION ×3 (09:18→19:56)
[2023-05-06] MEDS: budesonide 0.5 mg/2 mL Neb INHALATION ×2 (09:18→19:56)
[2023-05-06] MEDS: lisinopril 20 mg Tablet PO ×2 (09:56→17:20)
[2023-05-06] MEDS: predniSONE 20 mg Tablet 60 MG PO (09:57)
[2023-05-06] MEDS: carvedilol 25 mg Tablet PO ×2 (09:57→17:20)
--- NOTE | 2023-05-06 10:50 | PC.SOCIAL ---
IMM update Imm updated with patient at bedside. Copy of page 2 provided. Patient verbalized understanding. Copy in chart initialed, dated and timed.
--- NOTE | 2023-05-06 15:48 | XRR_ITS ---
PROCEDURE INFORMATION: Exam: XR Chest Exam date and time: 05/06/2023 4:07 PM Age: 87 years old Clinical indication: Shortness of breath; Additional info: SOB TECHNIQUE: Imaging protocol: Radiologic exam of the chest. Views: 1 view. COMPARISON: CR (CHEST, ) 05/03/2023 6:08 PM FINDINGS: Lungs: Emphysema with stable interstitial opacities scattered throughout both lungs. No consolidation. Pleural spaces: Unremarkable. No pleural effusion. No pneumothorax. Heart/Mediastinum: Mild cardiomegaly. Bones/joints: Unremarkable. XR/XR chest 1V portable [id number] IMPRESSION: 1. Stable interstitial opacities in both lungs is most likely chronic scarring. Superimposed infectious bronchiolitis cannot be excluded.
[2023-05-06] MEDS: levofloxacin-dextrose 5 % 750 MG/150 ML PREMIX 100 MG IV (16:21)
--- NOTE | 2023-05-06 17:36 | P.PN_ITS ---
Subjective Subjective: Patient was seen and examined this morning denied any significant SOB, has cough, no fever, currently doing well on 2 Ls supplemental oxygen, WBC is currently at 18.5 , serum creatinine is currently stable, UA has not shown any hematuria. Repeat x-ray chest done today showed: Stable int erstitial opacities in both lungs is most likely chronic scarring. Superimposed infectious bronchiolitis. If needed will do CT chest with contrast to assess the lung parenchyma better. Given the fact that in view of persistent leukocytosis and prior history of Pseudomonas likely Pseudomonas aeruginosa will broaden the antibiotic coverage to dual antipseudomonal coverage levofloxacin IV has been added. No hemoptysis. Medications: Medication Review Details: Generic Name Dose Route Start Last Admin Trade Name Freq PRN Reason Stop Dose Admin Albuterol/Ipratrop ium 3 ml 05/04/23 02:00 05/06/23 14:19 Ipratropium-Albu terol 3 Ml Neb INHALATION 3 ml Q6H.RESP ANDIE Administration Benzonatate 200 mg 05/05/23 10:27 05/05/23 15:50 Benzonatate 100 Mg Capsule PO 200 mg TID PRN Administration COUGH Budesonide 0.5 mg 05/04/23 20:00 05/06/23 09:18 Budesonide 0.5 M g/2 Ml Neb INHALATION 0.5 mg BID.RESPIRATORY S CH Administration Carvedilol 25 mg 05/04/23 09:00 05/06/23 17:20 Carvedilol 25 Mg Tablet PO 25 mg BID ANDIE Administration Enoxaparin Sodium 30 mg 05/04/23 23:00 05/05/23 22:41 Enoxaparin 30 Mg /0.3 Ml Syringe SUBCUT 30 mg Q24H ANDIE Administration Piperacillin Sod/T azobactam 50 mls @ 12.5 mls /hr 05/03/23 21:30 05/06/23 10:35 Sod 3.375 gm/ So dium Chloride IV Infused Q8H ANDIE Infusion Vancomycin HCl 750 mg/ Sodium 250 mls @ 250 mls /hr 05/04/23 19:30 05/06/23 09:50 Chloride IV Infused Q36H ANDIE Infusion Protocol Levofloxacin/Dextr ose 750 mg in 150 mls @ 100 mls/hr 05/06/23 16:00 05/06/23 16:21 Levaquin-D5w IV 100 mls/hr Q24H ANDIE Administration Protocol Lisinopril 20 mg 05/05/23 18:00 05/06/23 17:20 Lisinopril 20 Mg Tablet PO 20 mg BID ANDIE Administration Prednisone 60 mg 05/04/23 09:00 05/06/23 09:57 Prednisone 20 Mg Tablet PO 60 mg DAILY ANDIE Administration Vitals/I&O/Wt Last Vital Signs Temp 98.7 F 05/06/23 16:00 Pulse 76 05/06/23 16:00 Resp 16 05/06/23 16:00 BP 149/75 05/06/23 16:00 Pulse Ox 95 05/06/23 16:00 O2 Del Method Nasal Cannula 05/06/23 16:00 O2 Flow Rate 2 05/06/23 14:00 05/06/23 05/06/23 05/06/23 06:59 14:59 22:59 Intake Total 50 / 1830 1140 / 1140 480 / 1620 Output Total 600 / 600 Balance -550 / 1230 1140 / 1140 480 / 1620 Physical Exam Const: COMMON NORMALS: patient oriented x3 HENMT: COMMON NORMALS: normocephalic and atraumatic HEAD & SCALP: normoceph alic and atraumatic Resp: COMMON NORMALS: clear to auscultation bilaterally AUSCULTATION: clear to auscultation bilaterally OTHER: b/l fine crackles in both the lungs zhu. Cardio: COMMON NORMALS: regular rate, regular rhythm, S1 normal heart sound present, S2 normal heart sound present, No gallops present (Cardio), No murmurs present (Cardio), No rub (Cardio) and Peripheral pulses 2+ throughout RATE: regular rate RHYTHM: regular rhythm HEART SOUNDS: S1 normal heart sound present and S2 normal heart sound present PERIPHERAL PULSES: Peripheral pulses 2+ throughout GI: COMMON NORMALS: Normal to inspection, nondistended, normoactive bowel sounds present, Soft to palpation, non-tender, No hepatosplenomegaly present and no masses AUSCULTATION: Yes normoactive bowel sounds PALPATION: Yes Soft to palpation and Yes No hepatosplenomegaly present RECTAL EXAM: deferred Extremity: COMMON NORMALS: no clubbing, cyanosis or edema and no pedal edema Neuro: COMMON NORMALS: patient oriented x3 Data 05/06/23 03:40 05/06/23 03:40 Micro: Microbiology 05/04/23 02:20 Gram Stain - Final Sputum - Expectorated Sputum Sputum Culture - Final Pseudomonas aeruginosa A&P Assessment and plan (1) Pneumonia: (2) Davi's granulomatosis: See above (3) Hypoxia: 2 L of oxygen currently, titrate as needed Plan 87-year-old female with past medical history of GPA, with kidney and lung involvement, hypertension, came in initially with chief complaint of worsening shortness of breath particularly with exertion, going on for some time, lately she also started experiencing cough with purulent sputum production as well as, she was complaining of subjective fever and chills, she was admitted for the management of pneumonia, X-ray chest on admission was showing:Bibasilar left greater than right atelectasis versus infiltrate, repeat x-ray chest done today has shown: Stable interstitial opacities in both lungs is most likely chronic scarring. Sputum culture is growing Pseudomonas aeruginosa,: Initially she was on Zosyn, levofloxacin was added for dual, antipseudomonal coverage for Pseudomonas aeruginosa, Gram stain has shown rare gram-positive cocci, procalcitonin: MRSA PCR is negative, urinalysis is negative for microscopic hematuria.On admission she was also started on steroids, currently she is on, prednisone 60 mg p.o. daily, which can be likely tapered off, in absence of any hemoptysis and hematuria, patient also received Lasix one-time in ER for elevated proBNP, currently appears euvolemic no Lasix has been used, most recent 2D echo has shown: Normal LV function with ejection fraction 65 to 70%.moderate pulmonary ?hypertension , Normal diastolic filling pattern. Moderate pulmonary hypertension could be secondary to: Her underlying lung pathology. Lasix can be used as needed. Currently she has no significant bilateral lower extremity swelling, no JVD, denied any orthopnea PND. Given her exertional shortness of breath, stress test can be done in future. For her history of hypertension: She has been continued on lisinopril 20 mg p.o. twice daily, amlodipine 5 mg p.o. daily has been added for better blood pressure control. Attestations Medical Necessity Statement*: Needs to be in hospital for IV antibiotics. Coding Level of Care Code Acute Code for [facility] Diagnoses Pneumonia J18.9 Davi's granulomatosis M31.30 Hypoxia R09.02
[2023-05-06] MEDS: enoxaparin 30 mg/0.3 mL Syringe SUBCUT (22:13)
[2023-05-07] VITALS (12 sets, daily range): BP systolic 162–208; BP diastolic 71–90; PULSE 60–94; RESP 16–96; TEMP 36.4–36.7; O2SAT 90–98
[2023-05-07] MEDS: piperacillin-tazobactam 3.375 GM in sodium chloride 0.9% (plus) 50 ML IV (05:45)
[2023-05-07 06:19] LABS: Basophils % 0.1 %; Eosinophils % 0.2 %; Hematocrit 39.8 % (37.0-47.0); Hemoglobin 12.3 g/dL (11.5-15.3); Lymphocytes # 2.6 10^3/uL (0.8-4.8); Lymphocytes % 15.1 %; Mean Corpuscular HGB Conc 30.9 g/dL (30.0-36.0); Mean Corpuscular Hemoglobin 29.6 pg (28.0-34.0); Mean Corpuscular Volume 95.9 fl (81-99); Mean Platelet Volume 10.5 fL (7.4-10.4); Monocytes # 0.9 10^3/uL (0.2-0.9); Monocytes % 5.4 %; Neutrophils # 13.28 10^3/uL (1.8-7.7); Neutrophils % 78.7 %; Nucleated Red Blood Cells % 0 %; Platelet Count 375 10^3/cmm (130-400); Red Blood Count 4.15 10^6/uL (4.1-5.3); Red Cell Distribution Width 13.4 % (12.1-15.1); White Blood Count 16.9 10^3/uL (4.0-10.0)
[2023-05-07 06:56] LABS: Procalcitonin 0.05 ng/mL (0-0.5)
[2023-05-07 07:55] LABS: Alanine Aminotransferase 20 U/L (0-33); Albumin Level 3.6 g/dL (3.5-5.2); Alkaline Phosphatase 76 U/L (35-105); Aspartate Amino Transferase 16 U/L (0-32); Blood Urea Nitrogen 31 mg/dL (8-23); Calcium 8.7 mg/dL (8.5-10.5); Carbon Dioxide 30 mmol/L (22-29); Chloride 99 mmol/L (98-107); Globulin 2.1 g/dL (1.3-4.6); Glucose 74 mg/dL (65-115); Osmolality Calculated 291 mOsm/kg (285-295); Sodium 138 mmol/L (136-145); Total Bilirubin 0.2 mg/dL (0.15-1.2); Total Protein 5.7 g/dL (6.6-8.7)
[2023-05-07 07:59] LABS: Anion Gap 13.7 (5-19); Potassium 4.7 mmol/L (3.5-5.1)
[2023-05-07] MEDS: budesonide 0.5 mg/2 mL Neb INHALATION ×2 (08:30→19:35)
[2023-05-07] MEDS: ipratropium-albuterol 3 mL Neb INHALATION ×3 (08:30→19:35)
[2023-05-07] MEDS: predniSONE 20 mg Tablet 60 MG PO (08:43)
[2023-05-07] MEDS: carvedilol 25 mg Tablet PO ×2 (08:44→17:42)
[2023-05-07] MEDS: amlodipine 5 mg Tablet PO (08:44)
[2023-05-07] MEDS: lisinopril 20 mg Tablet PO ×2 (08:44→17:42)
--- NOTE | 2023-05-07 14:48 | PM.PN ---
Subjective Subjective: Uncontrolled blood pressure today. This morning at 200/83. After receiving amlodipine currently it is at 170/83. Patient denies feeling short of breath. Oxygen requirements are stable at 2 L/min. Medications: Reviewed: Yes Medication Review Details: Generic Name Dose Route Start Last Admin Trade Name Freq PRN Reason Stop Dose Admin Albuterol/Ipratrop ium 3 ml 05/04/23 02:00 05/06/23 14:19 Ipratropium-Albu terol 3 Ml Neb INHALATION 3 ml Q6H.RESP ANDIE Administration Benzonatate 200 mg 05/05/23 10:27 05/05/23 15:50 Benzonatate 100 Mg Capsule PO 200 mg TID PRN Administration COUGH Budesonide 0.5 mg 05/04/23 20:00 05/06/23 09:18 Budesonide 0.5 M g/2 Ml Neb INHALATION 0.5 mg BID.RESPIRATORY S CH Administration Carvedilol 25 mg 05/04/23 09:00 05/06/23 17:20 Carvedilol 25 Mg Tablet PO 25 mg BID ANDIE Administration Enoxaparin Sodium 30 mg 05/04/23 23:00 05/05/23 22:41 Enoxaparin 30 Mg /0.3 Ml Syringe SUBCUT 30 mg Q24H ANDIE Administration Piperacillin Sod/T azobactam 50 mls @ 12.5 mls /hr 05/03/23 21:30 05/06/23 10:35 Sod 3.375 gm/ So dium Chloride IV Infused Q8H ANDIE Infusion Vancomycin HCl 750 mg/ Sodium 250 mls @ 250 mls /hr 05/04/23 19:30 05/06/23 09:50 Chloride IV Infused Q36H ANDIE Infusion Protocol Levofloxacin/Dextr ose 750 mg in 150 mls @ 100 mls/hr 05/06/23 16:00 05/06/23 16:21 Levaquin-D5w IV 100 mls/hr Q24H ANDIE Administration Protocol Lisinopril 20 mg 05/05/23 18:00 05/06/23 17:20 Lisinopril 20 Mg Tablet PO 20 mg BID ANDIE Administration Prednisone 60 mg 05/04/23 09:00 05/06/23 09:57 Prednisone 20 Mg Tablet PO 60 mg DAILY ANDIE Administration Vitals/I&O/Wt Last Vital Signs Temp 97.6 F 05/07/23 11:19 Pulse 78 05/07/23 14:15 Resp 18 05/07/23 14:08 BP 172/83 05/07/23 11:19 Pulse Ox 97 05/07/23 14:08 O2 Del Method Nasal Cannula 05/07/23 14:08 O2 Flow Rate 2 05/07/23 14:08 05/06/23 05/07/23 05/07/23 22:59 06:59 14:59 Intake Total 2009 1010 / 1010 Balance 2009 1010 / 1010 Physical Exam Narrative: General: No acute distress, AO x3 HEENT: PERRLA, pupils bilaterally equal and reactive, pallors not present Chest: Wheezing to auscultation bilaterally all areas right worse than left. CVS: S1-S2 regular, no murmurs, no tachycardia, no gallops, no rubs Abdomen: Soft, nontender, no organomegaly, bowel sounds present Neuro: No focal deficits, no facial deformity, AO x3, power 5/5 in all limbs Data 05/07/23 05:28 05/07/23 05:28 Micro: Microbiology 05/07/23 05:34 Blood Culture - Preliminary Blood SPECIMEN COLLECTED 05/07/23 05:28 Blood Culture - Preliminary Blood SPECIMEN COLLECTED 05/04/23 02:20 Gram Stain - Final Sputum - Expectorated Sputum Sputum Culture - Final Pseudomonas aeruginosa A&P Assessment and plan (1) Hypoxia: (2) Daiv's granulomatosis: (3) Enterovirus infection: (4) Acute bronchitis: (5) Uncontrolled hypertension: Plan 87-year-old lady with past medical history of Davi's granulomatosis, on treatment with Rituxan, last taken in July 2022, follows with pulmonology and nephrology out of [place]. Recently started on oxygen as an outpatient at 2 L/min. Presenting to the emergency room with worsening cough expectoration and dyspnea. Found to have acute viral infection with entero-/rhinovirus on May 04, 2023. 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 She previously had pseudomonal pneumonia 2 to 3 years ago at which time she was treated with cefepime IV. She was recommended to be on azithromycin for anti-inflammatory effect in the past, however I do not see it on her home medication list currently. Overall clinical impression is that of acute bronchitis/bronchiolitis triggered by acute viral infection, to which patient is highly predisposed given her treatment with Rituxan. Chest x-ray performed on May 03 and May 06, 2023 showed interstitial opacities in both lungs, most likely chronic. Superimposed infectious bronchiolitis could not be excluded. Previously CT of her chest performed in July 2022 did show findings of bronchitis and bronchiolitis and chronic scarring and changes in the lingula with pleural effusions. Patient has been on treatment with piperacillin/tazobactam for possibility of superadded bacterial pneumonia. She has chronic leukocytosis, currently at 16, it appears her baseline ranges between 14-17. This is likely related to chronic inflammatory state. She is currently afebrile. Plan for today: Patient appears to be symptomatically improving She is at stable oxygen requirements of 2 L/min Continue DuoNeb and budesonide inhalation scheduled. She is completing 5 days of IV piperacillin/tazobactam. We will discontinue today and switch to oral levofloxacin in anticipation of discharge over the next 24 hours. Discontinue vancomycin as MRSA PCR is negative, sputum culture additionally does not show any evidence of MRSA. She has uncontrolled high blood pressure, may be triggered by high-dose steroids. Continue home doses of carvedilol, lisinopril, Norvasc 5 mg was added to her regimen, will increase to 10 mg p.o. daily. Will use hydralazine as needed additionally for SBP greater than 170. Patient requests nebulizer at discharge as it appears to help her much more than as needed breakthrough albuterol inhalers. Attestations Medical Necessity Statement*: Medication changes today, transition antibiotics and lower steroids, control high blood pressure, anticipate discharge over the upcoming 24 hours if continues to do well Coding Level of Care Code Acute Code for [facility] Fwd Diagnoses Hypoxia R09.02 Davi's granulomatosis M31.30 Enterovirus infection B34.1 Acute bronchitis J20.9 Uncontrolled hypertension I10
[2023-05-07] MEDS: enoxaparin 30 mg/0.3 mL Syringe SUBCUT (22:58)
[2023-05-08] VITALS: BP 134/65; PULSE 72; RESP 16; TEMP 37; O2SAT 97
[2023-05-08 04:00] VITALS: BP 160/70; PULSE 63; RESP 17; TEMP 36.5; O2SAT 96
[2023-05-08 08:00] VITALS: BP 187/80; PULSE 82; RESP 17; TEMP 36.8; O2SAT 97
[2023-05-08 09:03] VITALS: PULSE 87; RESP 20; O2SAT 98
[2023-05-08] MEDS: budesonide 0.5 mg/2 mL Neb INHALATION (09:03)
[2023-05-08] MEDS: ipratropium-albuterol 3 mL Neb INHALATION ×2 (09:03→14:03)
[2023-05-08] MEDS: carvedilol 25 mg Tablet PO (09:59)
[2023-05-08] MEDS: amlodipine 5 mg Tablet 10 MG PO (09:59)
[2023-05-08] MEDS: lisinopril 20 mg Tablet PO (10:00)
[2023-05-08] MEDS: predniSONE 20 mg Tablet 40 MG PO (10:00)
--- NOTE | 2023-05-08 13:34 | PC.SOCIAL ---
IMM Updated Updated pt on IMM. No questions voiced. Provided pt a copy. Initialed, dated, & timed copy in chart.
[2023-05-08 14:00] VITALS: PULSE 71; RESP 16; O2SAT 98
[2023-05-08 15:09] VITALS: PULSE 71; RESP 16; O2SAT 98
--- NOTE | 2023-05-08 16:20 | P.DS_ITS ---
Discharge Providers Date of Admission: 05/03/23 21:07 Date of Discharge: May 08, 2023 Attending Provider at Admission: Jose F Dias MD Attending Provider at Discharge: Marline Taylor MD Primary Care Provider: Chet Stallings MD Diagnoses at Discharge Discharge Diagnosis (1) Hypoxia: Status: Acute (2) Davi's granulomatosis: Status: Acute (3) Enterovirus infection: Status: Acute (4) Acute bronchitis: Status: Acute (5) Uncontrolled hypertension: Status: Acute Reason for Visit Reason for Visit: Cough, congestion Hospital Course Hospital Course 87-year-old lady with past medical history of Davi's granulomatosis, on treatment with Rituxan, last taken in July 2022, follows with pulmonology and nephrology out of [place]. Recently started on oxygen as an outpatient at 2 L/min. Presented to the emergency room with worsening cough expectoration and dyspnea. Found to have acute viral infection with entero-/rhinovirus on May 04, 2023. 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 She previously had pseudomonal pneumonia 2 to 3 years ago at which time she was treated with cefepime IV. Overall clinical impression is that of acute bronchitis/bronchiolitis triggered by acute viral infection, to which patient is highly predisposed given her treatment with Rituxan. Chest x-ray performed on May 03 and May 06, 2023 showed interstitial opacities in both lungs, most likely chronic.? Superimposed infectious bronchiolitis could not be excluded.? Previously CT of her chest performed in July 2022 did show findings of bronchitis and bronchiolitis and chronic scarring and changes in the lingula with pleural effusions. Patient received treatment with piperacillin/tazobactam for possibility of superadded bacterial pneumonia, transitioned to po levaquin 750 q24h at discharge. She has chronic leukocytosis, currently at 16, it appears her baseline ranges between 14-17.? This is likely related to chronic inflammatory state. She is currently afebrile. She received DuoNeb and budesonide inhalation scheduled. She also received treatment with Prednisone 60mg daily during admission, discharged with steroid taper. She improved significantly with these interventions, feels back to her recent baseline today. Hospital course marked by uncontrolled high blood pressure, may be triggered by high-dose steroids.? At discharge she has been Continued on home doses of carvedilol, lisinopril, Norvasc 10 mg was added to her regimen, instrcuted to keep a BP chart over next week and take it to [facility] visit in 7-10 days. Patient requests nebulizer at discharge as it appears to help her much more than as needed breakthrough albuterol inhalers. Physical Exam Narrative: General: No acute distress, AO x3 HEENT: PERRLA, pupils bilaterally equal and reactive, pallors not present Chest: Normal vesicular breath sounds, no added sounds, equal good air entry bilaterally CVS: S1-S2 regular, no murmurs, no tachycardia, no gallops, no rubs Abdomen: Soft, nontender, no organomegaly, bowel sounds present Neuro: No focal deficits, no facial deformity, AO x3, power 5/5 in all limbs Discharge Data Studies Completed and Pending Completed Studies During Hospitalization Category Date Time Status XR chest 1V portable [id number] Routine Exams 05/06/23 15:48 Completed XR chest 1V portable [id number] Stat Exams 05/03/23 17:45 Completed Pending at discharge Category Date Time Status Blood Culture AM LABS Lab 05/07/23 05:34 Results Radiology Impressions Chest X-Ray 05/06/23 15:48 IMPRESSION: 1. Stable interstitial opacities in both lungs is most likely chronic scarring. Superimposed infectious bronchiolitis cannot be excluded. Laboratory Results WBC 16.9 10^3/uL (4.0-10.0) H 05/07/23 05:28 RBC 4.15 10^6/uL (4.1-5.3) 05/07/23 05:28 Hgb 12.3 g/dL (11.5-15.3) 05/07/23 05:28 Hct 39.8 % (37.0-47.0) 05/07/23 05:28 MCV 95.9 fl (81-99) 05/07/23 05:28 MCH 29.6 pg (28.0-34.0) 05/07/23 05:28 MCHC 30.9 g/dL (30.0-36.0) 05/07/23 05:28 RDW 13.4 % (12.1-15.1) 05/07/23 05:28 Plt Count 375 10^3/cmm (130-400) 05/07/23 05:28 MPV 10.5 fL (7.4-10.4) H 05/07/23 05:28 Neut % (Auto) 78.7 % 05/07/23 05:28 Lymph % (Auto) 15.1 % 05/07/23 05:28 Mower % (Auto) 5.4 % 05/07/23 05:28 Eos % (Auto) 0.2 % 05/07/23 05:28 Baso % (Auto) 0.1 % 05/07/23 05:28 Neut # (Auto) 13.28 10^3/uL (1.8-7.7) H 05/07/23 05:28 Lymph # (Auto) 2.6 10^3/uL (0.8-4.8) 05/07/23 05:28 Mower # (Auto) 0.9 10^3/uL (0.2-0.9) 05/07/23 05:28 Eos # (Auto) 0.0 10^3/uL (0.0-0.8) 05/07/23 05:28 Baso # (Auto) 0.0 10^3/uL (0.0-0.1) 05/07/23 05:28 Nucleated RBC % (auto) 0 % 05/07/23 05:28 Nucleated RBCs # 0.0 /100WBC 05/07/23 05:28 Sodium 138 mmol/L (136-145) 05/07/23 05:28 Potassium 4.7 mmol/L (3.5-5.1) 05/07/23 05:28 Chloride 99 mmol/L (98-107) 05/07/23 05:28 Carbon Dioxide 30 mmol/L (22-29) H 05/07/23 05:28 Anion Gap 13.7 (5-19) 05/07/23 05:28 BUN 31 mg/dL (8-23) H 05/07/23 05:28 Creatinine 0.9 mg/dL (0.5-0.9) 05/07/23 05:28 GFR Calculation Not Reportable 05/07/23 05:28 Glucose 74 mg/dL (65-115) 05/07/23 05:28 Calculated Osmolality 291 mOsm/kg (285-295) 05/07/23 05:28 Calcium 8.7 mg/dL (8.5-10.5) 05/07/23 05:28 Magnesium 2.1 mg/dL (1.7-2.3) 05/04/23 06:54 Total Bilirubin 0.2 mg/dL (0.15-1.2) 05/07/23 05:28 AST 16 U/L (0-32) 05/07/23 05:28 ALT 20 U/L (0-33) 05/07/23 05:28 Alkaline Phosphatase 76 U/L (35-105) 05/07/23 05:28 NT-Pro-B Natriuret Pep 1814 pg/mL (0-450) H 05/03/23 18:47 Total Protein 5.7 g/dL (6.6-8.7) L 05/07/23 05:28 Albumin 3.6 g/dL (3.5-5.2) 05/07/23 05:28 Globulin 2.1 g/dL (1.3-4.6) 05/07/23 05:28 Procalcitonin 0.05 ng/mL (0-0.5) 05/07/23 05:28 Urine Color Colorless (Yellow) 05/06/23 01:16 Urine Appearance Clear (CLEAR) 05/06/23 01:16 Urine pH 5 (5-7) 05/06/23 01:16 Ur Specific [place] 1.015 (1.005-1.030) 05/06/23 01:16 Urine Protein Neg (Negative) 05/06/23 01:16 Urine Glucose (UA) Norm (Normal) 05/06/23 01:16 Urine Ketones Negative (Negative) 05/06/23 01:16 Urine Blood Neg (Negative) 05/06/23 01:16 Urine Nitrate Negative (Negative) 05/06/23 01:16 Urine Bilirubin Neg (Negative) 05/06/23 01:16 Urine Urobilinogen Norm mg/dL (Negative) 05/06/23 01:16 Ur Leukocyte Esterase Negative (Negative) 05/06/23 01:16 Urine RBC None /hpf (0-2) 05/06/23 01:16 Urine WBC None /hpf (0-5) 05/06/23 01:16 Ur Squamous Epith Cells None /hpf (0-5) 05/06/23 01:16 Amorphous Sediment Not Reportable 05/06/23 01:16 Urine Bacteria Trace /hpf (NONE) 05/06/23 01:16 Coronavirus 229E (PCR) Not detected (NOT DETECT) 05/03/23 Unknown Human Metapneumovir PCR Not detected (NOT DETECT) 05/04/23 02:30 Entero/Rhino (PCR) Detected (NOT DETECT) A 05/04/23 02:30 SARS-CoV-2 (PCR) Not detected (NOT DETECT) 05/03/23 Unknown Vitals Last Vital Signs Temp 98.2 F 05/08/23 08:00 Pulse 71 05/08/23 15:09 Resp 16 05/08/23 15:09 BP 187/80 05/08/23 08:00 Pulse Ox 98 05/08/23 15:09 O2 Del Method Nasal Cannula 05/08/23 14:00 O2 Flow Rate 2 05/08/23 14:00 Discharge Plan Discharge Patient Disposition: Home Condition: Stable Prescriptions: New amlodipine 5 mg Tablet 10 mg PO DAILY 30 Days Qty: 30 0RF benzonatate 100 mg Capsule 200 mg PO TID PRN (Reason: Cough) 30 Days Qty: 30 0RF levofloxacin 750 mg Tablet 750 mg PO DAILY@0600 9 Days Qty: 10 0RF albuterol sulfate 2.5 mg/0.5 mL solution for nebulization 2.5 mg inhalation Q6H PRN (Reason: shortness of breath or wheezing) Qty: 30 1RF prednisone 10 mg tablets,dose pack See Taper PO DIRECTED Qty: 21 0RF Taper: predniSONE 60-10 50 mg Daily for 2 Days and 0 Hour 40 mg Daily for 2 Days and 0 Hour 30 mg Daily for 2 Days and 0 Hour 20 mg Daily for 2 Days and 0 Hour 10 mg Daily for 2 Days and 0 Hour 5 mg Daily for 2 Days and 0 Hour Rx Instructions: 50 mg daily for 2 Days; 40 mg daily for 2 Days; 30 mg daily for 2 Days; 20 mg daily for 2 Days; 10 mg daily for 2 Days; 5 mg daily for 2 Days Protonix 40 mg tablet,delayed release (DR/EC) 40 mg PO DAILY 28 Days Qty: 30 0RF Continued carvedilol 25 mg tablet 25 mg PO BID Rx Instructions: must administer with a meal/food latanoprost 0.005 % drops 1 drp ophthalmic (eye) QPM Rx Instructions: each eye fluticasone furoate-vilanterol [Breo Ellipta] 100-25 mcg/dose blister with device 1 inh inhalation DAILY lisinopril 20 mg tablet 20 mg PO BID Vitamin C 500 mg Tablet 500 mg PO DAILY dorzolamide-timolol 22.3-6.8 mg/mL drops 1 drp ophthalmic (eye) BID albuterol sulfate 90 mcg/actuation HFA aerosol inhaler 1 puff INHALATION Q6H PRN (Reason: Shortness Of Breath) Vitamin D3 25 mcg (1,000 unit) Capsule 25 mcg PO DAILY PreserVision AREDS-2 250-90-40-1 mg Capsule 1 tab PO BID Discharge Orders: Discharge Order (Routine); Ordered 05/08/23 Ordered By: Marline Taylor Other Ambulatory Orders: DME: Nebulizer with Neb Kit (Order) Location: None Selected Ordered By: Marline Taylor Referrals: Chet Stallings MD [Primary Care Provider] - 05/16/23 9:40 am Patient Instructions: Bronchitis (Acute) - Adult, Albuterol (By breathing), Prednisone (By mouth), Amlodipine (By mouth) (Hypertenipine-2.5, Norvasc, Norliqva), Levofloxacin (By mouth), Tesamorelin (By injection), Viral Pneumonia (ED), Opioid Safety, Pneumonia Stoplight Activity Restrictions/Additional Instructions: Check your blood pressure twice a day until follow up with Dr. Stallings. Please maintain chart of all BP recordings. Take prednisone per taper as follows: 50 mg daily for 2 Days; 40 mg daily for 2 Days; 30 mg daily for 2 Days; 20 mg daily for 2 Days; 10 mg daily for 2 Days; 5 mg daily for 2 Days Protonix 40mg daily added to prevent stomach ulcers while on prednisone Discharge Attestations Time Spent in Discharge Care*: greater than 30 min Quality Metrics Clinical Quality Measures [ No reported AMI, CVA or VTE this stay] Coding Level of Care Code Acute Code for Chg Fwd Diagnoses Hypoxia R09.02 Davi's granulomatosis M31.30 Enterovirus infection B34.1 Acute bronchitis J20.9 Uncontrolled hypertension I10
== END 2023-05-08 14:30 | disposition home or self-care (01) | DRG 202 ==
LOC: ER 21:32 → MEDSURG 21:34
PROVIDERS: Internal Medicine; Admitting Provider Internal Medicine; Emergency Provider Family Medicine; PCP Family Medicine; Visit Provider Student in an Organized Health Care Education/Training Program
DX: J20.6 Acute bronchitis due to rhinovirus (principal); D84.821 Immunodeficiency due to drugs; M31.31 Wegener's granulomatosis with renal involvement; Z79.899 Other long term (current) drug therapy; B96.5 Pseudomonas (aeruginosa) (mallei) (pseudomallei) as the cause of diseases classified elsewhere; Z87.01 Personal history of pneumonia (recurrent); J21.8 Acute bronchiolitis due to other specified organisms; I10 Essential (primary) hypertension; I27.20 Pulmonary hypertension, unspecified
CPT/HCPCS: 36415; 71045; 80053; 81001; 83735; 83880; 84145; 85025; 87040; 87070; 87077; 87186; 87205; 87635; 87641; 87801; 94640; 96365; 96367; 96372; 96375; 97110; 97116; 97161; 99285; J0696; J1650; J1940; J1956; J2543; J2920; J3370; J7050; J7512; J7626

== ENCOUNTER → 2023-05-25 11:10 | Outpatient (BNVA) | payer MEDICARE, SELFPAY | PROVIDERS: PCP Family Medicine; Visit Provider Dermatology | DX: L82.1 Other seborrheic keratosis (principal); L57.8 Other skin changes due to chronic exposure to nonionizing radiation; L72.0 Epidermal cyst; Z08 Encounter for follow-up examination after completed treatment for malignant neoplasm; Z85.820 Personal history of malignant melanoma of skin; L57.0 Actinic keratosis | CPT/HCPCS: 17000; 99213 ==

== ENCOUNTER → 2023-12-05 11:38 | Outpatient (BNVA) | payer MEDICARE, SELFPAY | PROVIDERS: PCP Family Medicine; Visit Provider Family Medicine | DX: J06.9 Acute upper respiratory infection, unspecified (principal) | CPT/HCPCS: 87400; 87426 ==

== ENCOUNTER → 2024-04-01 09:27 | Outpatient (BNVA) | payer MEDICARE, SELFPAY | PROVIDERS: PCP Family Medicine; Visit Provider Nurse Practitioner Family | DX: L72.0 Epidermal cyst (principal); L82.1 Other seborrheic keratosis; L81.4 Other melanin hyperpigmentation; D69.2 Other nonthrombocytopenic purpura; Z85.828 Personal history of other malignant neoplasm of skin | CPT/HCPCS: 99213 ==

== ENCOUNTER 2025-01-16 14:17 | Emergency (ER) | payer MEDICARE, SELFPAY ==
[2025-01-16 14:29] VITALS: BP 149/87; PULSE 81; RESP 16; TEMP 36.8; O2SAT 95; BMI 18.1
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
--- NOTE | 2025-01-16 14:39 | XR_ITS ---
WS: [email or web address] XR chest 1V portable [id number] REASON FOR EXAM: dyspnea/cough FINDINGS: There are bilateral pleural effusions which may not be related to trauma. The chest is otherwise unchanged compared to a previous examination of 05/06/2023. There is cardiomegaly and chronic interstitial lung changes. No definite left rib fracture is identified. XR/XR chest 1V portable [id number] IMPRESSION: Bilateral pleural effusions as above.
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
--- NOTE | 2025-01-16 14:57 | PC.PHAR ---
Pt states she is from [facility] but her daughter takes care of her medications. Daughter states pt is no longer taking Breo Ellipta 100-25 bid last filled 01/15/25 for 30ds and has started Trelegy Ellipta 100-62.5-25 daily last fill 01/03/25 30ds.
[2025-01-16 15:03] LABS: Basophils # 0.1 10^3/uL (0.0-0.1); Basophils % 0.2 %; Eosinophils # 0.1 10^3/uL (0.0-0.8); Eosinophils % 0.5 %; Hematocrit 36.6 % (36-47); Lymphocytes # 1.7 10^3/uL (0.8-4.8); Lymphocytes % 8.4 %; Mean Corpuscular HGB Conc 31.4 g/dL (30-55); Mean Corpuscular Hemoglobin 30.9 pg (27-33); Mean Corpuscular Volume 98.4 fl (85-98); Mean Platelet Volume 9.8 fL (7.4-10.4); Monocytes # 0.9 10^3/uL (0.2-0.9); Monocytes % 4.5 %; Neutrophils # 17.46 10^3/uL (1.8-7.7); Neutrophils % 84.1 %; Nucleated Red Blood Cells % 0 %; Platelet Count 333 10^3/cmm (157-399); Red Blood Count 3.72 10^6/uL (3.85-5.65); Red Cell Distribution Width 13.2 % (12.1-15.1); White Blood Count 20.77 10^3/uL (3.29-11.43)
[2025-01-16 15:22] LABS: Alanine Aminotransferase 71 U/L (0-33); Albumin Level 3.8 g/dL (3.5-5.2); Alkaline Phosphatase 107 U/L (35-105); Aspartate Amino Transferase 143 U/L (0-32); Blood Urea Nitrogen 26 mg/dL (8-23); Calcium 8.6 mg/dL (8.5-10.5); Carbon Dioxide 33 mmol/L (22-29); Chloride 98 mmol/L (98-107); Creatinine Clr Calc Pharmacy 40.7111; Globulin 3.3 g/dL (1.3-4.6); Glucose 111 mg/dL (65-115); Osmolality Calculated 293 mOsm/kg (285-295); Sodium 139 mmol/L (136-145); Total Bilirubin 0.2 mg/dL (0.15-1.2); Total Protein 7.1 g/dL (6.6-8.7)
[2025-01-16] MEDS: ketorolac 30 mg/mL INJ IM (15:39)
[2025-01-16 16:48] VITALS: BP 161/73; PULSE 83; RESP 23; O2SAT 94
[2025-01-16 17:19] VITALS: BP 138/73; PULSE 85; O2SAT 96
[2025-01-16] MEDS: HYDROcodone-acetaminophen 5-325 mg Tablet 1 TAB PO (17:21)
[2025-01-16] MEDS: neomycin-poly-bacitracin oint 0.9 gm Pkt 1 APPLIC TOPICAL (17:31)
== END 2025-01-16 17:31 | disposition home or self-care (01) ==
PROVIDERS: Emergency Provider Family Medicine; PCP Family Medicine
DX: H83.3X3 Noise effects on inner ear, bilateral (principal); S00.93XA Contusion of unspecified part of head, initial encounter; I10 Essential (primary) hypertension; W22.10XA Striking against or struck by unspecified automobile airbag, initial encounter; V89.2XXA Person injured in unspecified motor-vehicle accident, traffic, initial encounter; S80.12XA Contusion of left lower leg, initial encounter; R05.9 Cough, unspecified
CPT/HCPCS: 36415; 70450; 71045; 72125; 73130; 73590; 80053; 85025; 96372; 99284; J1885; J9999

== ENCOUNTER 2025-02-02 12:52 | Outpatient (CLI) | payer MEDICARE, SELFPAY ==
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
== END 2025-02-02 12:53 | disposition home or self-care (01) ==
PROVIDERS: PCP Family Medicine; Visit Provider Family Medicine
DX: J90 Pleural effusion, not elsewhere classified (principal); J98.11 Atelectasis; R91.8 Other nonspecific abnormal finding of lung field; J84.10 Pulmonary fibrosis, unspecified; J44.89 Other specified chronic obstructive pulmonary disease; M47.895 Other spondylosis, thoracolumbar region
CPT/HCPCS: 71046

== ENCOUNTER 2025-02-05 20:24 | Inpatient (IN) | payer MEDICARE, SELFPAY ==
[2025-02-05] VITALS (8 sets, daily range): BP systolic 131–160; BP diastolic 52–66; PULSE 57–77; RESP 14–32; TEMP 36.1; O2SAT 90–97; BMI 17.6
--- NOTE | 2025-02-05 20:39 | XRR_ITS ---
PROCEDURE INFORMATION: Exam: XR Chest Exam date and time: 02/05/2025 8:53 PM Age: 89 years old Clinical indication: Other: AMS TECHNIQUE: Imaging protocol: Radiologic exam of the chest. Views: 1 view. COMPARISON: CR XR chest 2V* [id number] 02/02/2025 1:22 PM FINDINGS: Lungs: Pulmonary vascular congestion. Pleural spaces: Pleural fluid on the left appears unchanged. Pleural blunting on the right appears mildly increased. Heart/Mediastinum: Heart partially obscured by pleural fluid on the left. Bones/joints: No acute findings. XR/XR chest 1V portable [id number] IMPRESSION: Bilateral pleural effusions without obvious change on the left and with mild increase in the right.
--- NOTE | 2025-02-05 20:39 | CTR_ITS ---
PROCEDURE INFORMATION: Exam: CT Head Without Contrast Exam date and time: 02/05/2025 8:48 PM Age: 89 years old Clinical indication: Altered mental status/memory loss; Additional info: AMS TECHNIQUE: Imaging protocol: Computed tomography of the head without contrast. Radiation optimization: All CT scans at this facility use at least one of these dose optimization techniques: automated exposure control; mA and/or kV adjustment per patient size (includes targeted exams where dose is matched to clinical indication); or iterative reconstruction. COMPARISON: CT head wo con* [id number] 01/16/2025 3:52 PM RADIATION DOSE METRICS: Total DLP (mGy-cm): 1132.68 FINDINGS: Brain: Mild periventricular white matter low densities are most consistent with chronic small vessel ischemic change. No findings of intracranial hemorrhage. Cerebral ventricles: No ventriculomegaly. Paranasal sinuses: Visualized sinuses are unremarkable. No fluid levels. Mastoid air cells: Visualized mastoid air cells are well aerated. Bones: Unremarkable. No acute fracture. Soft tissues: Unremarkable. CT/CT head wo con* [id number] IMPRESSION: No acute intracranial abnormality.
--- NOTE | 2025-02-05 20:40 | ECG_ITS ---
[facility] Test Date: 2025-02-05 Pat Name: Germaine Galvez Department: Room: Gender: Female Batt Packer: : [id number] Requested By: Sang Munguia Order Number: [id number] Ferrara MD: Leatha Merrill M.D. Measurements Intervals [place] Rate: 63 P: 59 IA: 153 QRS: 19 QRSD: 98 T: 38 QT: 373 QTc: 382 Interpretive Statements SINUS RHYTHM POSSIBLE LEFT ATRIAL ENLARGEMENT [-0.1mV P-WAVE IN V1/V2] No previous ECG available for comparison Electronically Signed On 02-06-2025 10:35:27 CDT by Leatha Merrill M.D. [email or web address]
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
[2025-02-05 21:22] LABS: Basophils % 0.2 %; Eosinophils # 0.1 10^3/uL (0.0-0.8); Eosinophils % 0.5 %; Hematocrit 36.6 % (36-47); Lymphocytes % 7.6 %; Mean Corpuscular HGB Conc 28.7 g/dL (30-55); Mean Corpuscular Hemoglobin 30.6 pg (27-33); Mean Corpuscular Volume 106.7 fl (85-98); Mean Platelet Volume 8.8 fL (7.4-10.4); Monocytes # 0.5 10^3/uL (0.2-0.9); Neutrophils # 11.01 10^3/uL (1.8-7.7); Nucleated Red Blood Cells % 0 %; Platelet Count 449 10^3/cmm (157-399); Red Blood Count 3.43 10^6/uL (3.85-5.65); Red Cell Distribution Width 15.5 % (12.1-15.1); White Blood Count 12.66 10^3/uL (3.29-11.43)
[2025-02-05 21:35] LABS: INR 0.98 (0.8-1.2)
[2025-02-05 21:36] LABS: Partial Thromboplastin Time 27.6 SECONDS (23.9-36.7)
[2025-02-05 21:38] LABS: Bilirubin Urine Negative (Negative); Blood Urine Negative (Negative); Glucose Urine UA Negative (Normal); Ketones Urine Negative (Negative); Leukocyte Esterase Urine Negative (Negative); Nitrate Urine Negative (Negative); Protein Urine 1+ (Negative); Urine Appearance Clear (CLEAR); Urine Color Yellow (Yellow)
[2025-02-05 21:42] LABS: Alanine Aminotransferase 12 U/L (0-33); Albumin Level 3.9 g/dL (3.5-5.2); Alkaline Phosphatase 197 U/L (35-105); Aspartate Amino Transferase 19 U/L (0-32); Blood Urea Nitrogen 28 mg/dL (8-23); Calcium 8.9 mg/dL (8.5-10.5); Chloride 94 mmol/L (98-107); Creatinine Clr Calc Pharmacy 40.2853; Globulin 3.4 g/dL (1.3-4.6); Glucose 144 mg/dL (65-115); Magnesium 2.3 mg/dL (1.7-2.3); Osmolality Calculated 292 mOsm/kg (285-295); Sodium 137 mmol/L (136-145); Total Bilirubin 0.3 mg/dL (0.15-1.2); Total Protein 7.3 g/dL (6.6-8.7)
[2025-02-05 21:42] LABS: Add Urine Microscopic? YES; Bacteria Urine None Seen /hpf; Hyaline Casts Urine 2.87 /lpf; RBC Urine 0-2 /hpf (0-2); Squamous Epithelial Cell Urine 0-5 /hpf (0-5); WBC Urine 0-5 /hpf (0-5)
[2025-02-05 21:43] LABS: Lactic Sepsis W/Reflex 0.5 mmol/L (0.5-2.2)
[2025-02-05 21:51] LABS: Carbon Dioxide 42 mmol/L (22-29)
[2025-02-05 22:04] LABS: UA Slide Review UA Slide Review Perf
[2025-02-05 23:09] LABS: ABG PCO2 91.4 mmHg (35-45); ABG PH Result 7.28 (7.35-7.45); Arterial Blood Gas Hematocrit 28.5 % (37-47); Blood Gas Sample Site Brachial, right; Blood Gas Sample Type Arterial; HCO3 ABG 43.3 mmol/L (22-26); Oxygen Device NC
[2025-02-05 23:17] LABS: Influenza A NEGATIVE (Negative); Influenza B NEGATIVE (Negative); Respiratory Syncytial Virus Ce NEGATIVE (Negative); SARS-CoV-2 PCR NEGATIVE (Negative)
[2025-02-06] VITALS (39 sets, daily range): BP systolic 128–215; BP diastolic 51–86; PULSE 58–99; RESP 8–28; TEMP 36.4–37.1; O2SAT 90–99
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
[2025-02-06] MEDS: AZITHROMYCIN ADD-Vantage 500 MG in 0.9% NaCl ADD-Vantage 250 ML 250 MG IV (00:08)
[2025-02-06] MEDS: cefTRIAXone 1,000 mg SDV 1000 MG IVP (00:08)
[2025-02-06 00:52] LABS: C Reactive Protein 37.7 mg/L (0.0-4.9)
[2025-02-06 00:59] LABS: Procalcitonin 0.07 ng/mL (0-0.5)
[2025-02-06 01:06] LABS: NT Pro B Type Natriuretic Pept 5372 pg/mL (0-450)
--- NOTE | 2025-02-06 02:42 | US_ITS ---
WS: [id number] ULTRASOUND-GUIDED THORACENTESIS, LEFT HISTORY: Left sided pleural effusion Procedure, risks, and complications were explained to the patient. With the patient in an upright position, the skin over the 700 posterior thorax was cleansed with ChloraPrep and anesthetized with 1% buffered lidocaine. A 5 Armenian Yueh needle is inserted into the pleural fluid without complication. Ap proximately 700 cc of clear yellow pleural fluid is removed without difficulty. / thoracentesis [id number] IMPRESSION: 1. LEFT thoracentesis yielding 700 cc of fluid. 2. Chest radiograph to follow to evaluate for pneumothorax.
[2025-02-06] MEDS: methylPREDNISolone sod succ 40 mg/mL INJ IVP ×2 (02:49→14:25)
[2025-02-06] MEDS: sodium chloride 0.9% 250 ML 50 ML IV (02:50)
[2025-02-06] MEDS: calcium gluconate 0.9% NaCL 1 GM/50 ML PREMIX IV (02:53)
[2025-02-06 03:11] LABS: Lactate Dehydrogenase 356 U/L (135-214)
[2025-02-06] MEDS: linezolid premix 600 MG/300 ML PREMIX 300 MG IV ×2 (03:54→14:25)
[2025-02-06] MEDS: albuterol 2.5 mg/3 mL Neb INHALATION ×4 (04:15→15:41)
[2025-02-06 04:19] LABS: ABG PCO2 80.4 mmHg (35-45); ABG PH Result 7.34 (7.35-7.45); Arterial Blood Gas Hematocrit 27.5 % (37-47); Base Excess ABG 15.1 mmol/L (-2.0-2.0); Blood Gas Sample Site Brachial, left; Blood Gas Sample Type Arterial; HCO3 ABG 43.3 mmol/L (22-26); Oxygen Device BIPAP; PO2 ABG 83.8 mmHg (80.0-100.0); PO2 FiO2 Ratio Arterial Blood 209
[2025-02-06] MEDS: piperacillin-tazobactam 4.5 GM in sodium chloride 0.9% (plus) 50 ML IV ×3 (04:46→20:05)
[2025-02-06 05:41] LABS: Albumin Level 3.2 g/dL (3.5-5.2); Anion Gap 8.3 (5-19); Blood Urea Nitrogen 27 mg/dL (8-23); Calcium 8.5 mg/dL (8.5-10.5); Carbon Dioxide 40 mmol/L (22-29); Chloride 95 mmol/L (98-107); Creatinine Clr Calc Pharmacy 40.2853; Glucose 146 mg/dL (65-115); Phosphorus 2.6 mg/dL (2.5-4.5); Potassium 5.3 mmol/L (3.5-5.1); Sodium 138 mmol/L (136-145)
[2025-02-06] MEDS: budesonide 0.5 mg/2 mL Neb INHALATION ×2 (07:52→20:42)
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
--- NOTE | 2025-02-06 08:07 | CT_ITS ---
WS: [id number] CTA OF THE CHEST WITH PULMONARY EMBOLISM PROTOCOL TECHNIQUE: High-resolution contrast enhanced CTA of the chest with coronal and sagittal reformatted images with pulmonary embolism protocol. MIP images are also reviewed. CLINICAL INFORMATION: sob COMPARISON: None. DLP: 172.[address] scans at [facility] use at least one of these dose optimization techniques: automated exposure control; mA and/or kV adjustment per patient size (includes targeted exams where dose is matched to clinical indication); or iterative reconstruction. FINDINGS: Proximal main pulmonary arteries are normal. Normal segmental and subsegmental pulmonary arteries. No evidence of pulmonary embolus. Small RIGHT and tiny LEFT pleural effusions. Advanced chronic emphysematous changes. Fibrosis and bronchiectasis in the lung apices. Scattered areas of parenchymal fibrosis. Bronchiectasis in the RIGHT middle lobe. Bronchiectasis in the lingula. Small hazy groundglass opacity LEFT upper lobe likely inflammatory. Nodular thyroid. Normal caliber thoracic aorta. Cardiomegaly. Enlarged LEFT ventricle. Slight pectus deformity. No focal pneumonia. Moderate thoracic kyphosis. Chronic appearing anterior wedging in the midthoracic spine. CT/CT angio chest PE protcl [id number] IMPRESSION: 1. No evidence of pulmonary embolus. 2. Small RIGHT and tiny LEFT pleural effusions. 3. No focal pneumonia.
--- NOTE | 2025-02-06 08:37 | XR_ITS ---
WS: [id number] PORTABLE CHEST HISTORY: post thoracentesis, LEFT COMPARISON: None available. Much better aeration of the LEFT lung as compared to the prior examination. Very small bilateral pleural effusions. No pneumothorax. Lungs are hyperexpanded. Mild pulmonary edema. Pulmonary vasculature has actually improved since 02/05/2025. Cardiac size: Normal. Mediastinum/Aorta: Mild atherosclerosis aorta. Osteopenia. XR/XR chest 1V portable [id number] IMPRESSION: 1. No pneumothorax status post LEFT thoracentesis. 2. Significant improvement in the LEFT pleural effusion. 3. Very small bilateral pleural effusions.
[2025-02-06 09:07] LABS: Apprearance, Body Fluid CLOUDY; Color, Body Fluid PALE YELLOW
[2025-02-06 09:08] LABS: Cyto Order Verification No Order
[2025-02-06 09:11] LABS: Body Fluid Polynuclear #Cells 1.035; Body Fluid WBC 2008 /uL; Monocytes # Body Fluid 0.973
[2025-02-06] MEDS: carvedilol 25 mg Tablet PO ×2 (09:44→17:26)
[2025-02-06] MEDS: lisinopril 20 mg Tablet PO ×2 (09:44→17:26)
[2025-02-06 09:55] LABS: Albumin Body Fluid 1.8 g/dL; LDH Pleural Fluid 140 U/L; Total Protein Pleural Fluid 2.7 g/dL
[2025-02-06 09:56] LABS: Fluid Laterality LEFT
[2025-02-06 09:57] LABS: Troponin(5th) Baseline 21 ng/L (0-10)
--- NOTE | 2025-02-06 10:01 | ECG_ITS ---
[facility] Test Date: 2025-02-06 Pat Name: Germaine Galvez Department: Room: ED Gender: Female Heritage Consultant: : 1935 Requested By: Husam Trujillo Order Number: [id number] A[place] MD: Leatha Merrill M.D. Measurements Intervals [place] Rate: 74 P: 60 ND: 124 QRS: 40 QRSD: 89 T: 43 QT: 347 QTc: 386 Interpretive Statements SINUS RHYTHM Compared to ECG 02/05/2025 20:30:45 No significant changes Electronically Signed On 02-06-2025 10:38:59 CDT by Leatha Merrill M.D. [email or web address]
[2025-02-06] MEDS: iohexol 350 mg/mL 500 mL Btl (per mL) IV (10:37)
--- NOTE | 2025-02-06 10:57 | PC.NURSE ---
approx 500cc out from thoracentesis, fluid collected and taken to lab by this RN.
[2025-02-06 11:36] LABS: Troponin 5 2HR 16.56 ng/L (0-10)
[2025-02-06 11:38] LABS: Troponin 5 2HR Delta -4.44 ABS# (0-10)
[2025-02-06 13:04] LABS: MRSA PCR OZH (swab) NOT DETECTED (Not Detecte)
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
[2025-02-06] MEDS: acetaminophen 325 mg Tablet 650 MG PO (13:09)
[2025-02-06 14:19] LABS: Hematocrit Body Fluid 0.1 %
--- NOTE | 2025-02-06 14:29 | ECG_ITS ---
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
[2025-02-06 14:30] LABS: Creatinine Body Fluid 0.5 (0.5-0.9); PATH Referral YES; Triglycerides Body Fluid 9 mg/dL (0-150)
[2025-02-06] MEDS: collagenase oint 30 gm 1 APPLIC TOPICAL (15:26)
[2025-02-06 16:11] LABS: Troponin 5 6HR 20.76 ng/L (0-10)
[2025-02-06 16:14] LABS: Troponin 5 6HR Delta -0.24 ng/L (0-12)
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
[2025-02-06] MEDS: latanoprost 0.005% Op Soln 2.5 mL Btl 1 DROP OPHTHALMIC (17:27)
[2025-02-06] MEDS: FUROsemide 10 mg/mL SDV 4mL 40 MG IVP (17:28)
[2025-02-06] MEDS: dorzolamide/timolol Op Soln 10 mL Btl 1 DROP EYE-BOTH (17:28)
[2025-02-06] MEDS: ipratropium-albuterol 3 mL Neb INHALATION (20:42)
[2025-02-07] VITALS (32 sets, daily range): BP systolic 124–176; BP diastolic 49–118; PULSE 55–100; RESP 16–30; TEMP 36.6–37.1; O2SAT 89–100
[2025-02-07] MEDS: ipratropium-albuterol 3 mL Neb INHALATION ×7 (00:02→23:41)
[2025-02-07] MEDS: methylPREDNISolone sod succ 40 mg/mL INJ IVP ×2 (02:13→13:53)
[2025-02-07] MEDS: linezolid premix 600 MG/300 ML PREMIX 300 MG IV ×2 (02:14→13:53)
[2025-02-07] MEDS: piperacillin-tazobactam 4.5 GM in sodium chloride 0.9% (plus) 50 ML IV ×3 (04:07→20:26)
[2025-02-07 04:42] LABS: Basophils % 0.1 %; Hematocrit 42.3 % (36-47); Lymphocytes # 0.9 10^3/uL (0.8-4.8); Lymphocytes % 8.5 %; Mean Corpuscular Hemoglobin 30.6 pg (27-33); Mean Corpuscular Volume 98.8 fl (85-98); Mean Platelet Volume 9.7 fL (7.4-10.4); Monocytes # 0.3 10^3/uL (0.2-0.9); Monocytes % 2.9 %; Neutrophils # 9.11 10^3/uL (1.8-7.7); Neutrophils % 87.9 %; Nucleated Red Blood Cells % 0 %; Platelet Count 309 10^3/cmm (157-399); Red Blood Count 4.28 10^6/uL (3.85-5.65); Red Cell Distribution Width 15.2 % (12.1-15.1); White Blood Count 10.36 10^3/uL (3.29-11.43)
[2025-02-07 04:58] LABS: Alanine Aminotransferase 9 U/L (0-33); Albumin Level 3.3 g/dL (3.5-5.2); Alkaline Phosphatase 170 U/L (35-105); Anion Gap 13.5 (5-19); Aspartate Amino Transferase 15 U/L (0-32); Blood Urea Nitrogen 28 mg/dL (8-23); Calcium 8.6 mg/dL (8.5-10.5); Carbon Dioxide 39 mmol/L (22-29); Chloride 88 mmol/L (98-107); Creatinine Clr Calc Pharmacy 41.4347; Globulin 3.1 g/dL (1.3-4.6); Glucose 152 mg/dL (65-115); Osmolality Calculated 290 mOsm/kg (285-295); Phosphorus 3.1 mg/dL (2.5-4.5); Potassium 4.5 mmol/L (3.5-5.1); Sodium 136 mmol/L (136-145); Total Bilirubin 0.3 mg/dL (0.15-1.2); Total Protein 6.4 g/dL (6.6-8.7)
[2025-02-07 05:21] LABS: NT Pro B Type Natriuretic Pept 3594 pg/mL (0-450); Procalcitonin 0.07 ng/mL (0-0.5)
[2025-02-07 05:38] LABS: C Reactive Protein 24.8 mg/L (0.0-4.9)
[2025-02-07] MEDS: budesonide 0.5 mg/2 mL Neb INHALATION ×2 (07:25→19:51)
[2025-02-07] MEDS: lisinopril 20 mg Tablet PO ×2 (08:09→17:27)
[2025-02-07] MEDS: carvedilol 25 mg Tablet PO ×2 (08:09→17:27)
[2025-02-07] MEDS: dorzolamide/timolol Op Soln 10 mL Btl 1 DROP EYE-BOTH ×2 (08:10→17:28)
[2025-02-07] MEDS: collagenase oint 30 gm 1 APPLIC TOPICAL (08:10)
--- NOTE | 2025-02-07 08:24 | XRR_ITS ---
PROCEDURE INFORMATION: Exam: XR Chest Exam date and time: 02/07/2025 8:56 AM Age: 89 years old Clinical indication: Shortness of breath; Additional info: SOB TECHNIQUE: Imaging protocol: Radiologic exam of the chest. Views: 1 view. COMPARISON: CT angio chest PE protcl [id number] 02/06/2025 10:27 AM FINDINGS: Lungs: Bilateral apical fibrotic changes. Bilateral lower lobe atelectasis. Pleural spaces: Chronic subpleural reticular fibrotic changes. Small bilateral pleural effusions. Heart/Mediastinum: The heart is enlarged. Vasculature: There are aortic arch calcifications. There is unfolding of the thoracic aorta. Bones/joints: Mild degenerative disease of bilateral acromioclavicular joints. Demineralization of the visualized bones, limiting sensitivity for nondisplaced fractures. XR/XR chest 1V portable [id number] IMPRESSION: Bilateral pleural effusions with lower lobe atelectasis, more on the left side.
--- NOTE | 2025-02-07 13:34 | PC.NURSE ---
Speech Therapy to bedside, evaluation done. Recommendation made to place patient on soft and bite size food and mildly thick liquid. Notified Dr. Trujillo, order given to order diet per ST recommendation.
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
--- NOTE | 2025-02-07 14:37 | USCV_ITS ---
Germaine Galvez Age: 89 Gender: F : 1935 Exam Date: 02/07/2025 16:20 Ordering Phys: Husam Trujillo MD Technologist: Bernard Schneider Exam Location: [facility] – [place] Indication: sob BP: 136 / 100 HR: 64 Rhythm: Sinus Technical Quality: Adequate MEASUREMENTS (Male / Female) Normal Values 2D ECHO LV Diastolic Diameter PLAX 2.7 cm 4.2 - 5.9 / 3.9 - 5.3 cm IVS Diastolic Thickness 1.6 cm 0.6 - 1.0 / 0.6 - 0.9 cm IVS Systolic Thickness 1.4 cm LVPW Diastolic Thickness 1.8 cm 0.6 - 1.0 / 0.6 - 0.9 cm LVPW Systolic Thickness 2.0 cm LVOT Diameter 2.0 cm LV Ejection Fraction 2D Teich 65.8 % LV Ejection Fraction MOD 4C 79.9 % LV Ejection Fraction MOD 2C 79.9 % LV Ejection Fraction 2C AL 80.5 % LA Diameter 3.7 cm RA Systolic Volume 4C AL 38.7 ml RA Systolic Volume 4C MOD 36.8 ml LA Sys Volume AL 49.6 cm cubed LA Sys Volume Index AL 33.0 cm cubed/m squared Aorta at Sinotubular Diameter 2.2 cm IVC Diameter 1.4 cm M-MODE LA Ao Ratio MM 1.4 AV Cusp Separation MM 1.2 cm DOPPLER AV Peak Velocity 110.0 cm/s LVOT Peak Velocity 104.0 cm/s AV Area Cont Eq vti 3.2 cm squared AV Area Cont Eq pk 3.1 cm squared MV Peak Velocity 123.0 cm/s MV Area PHT 7.0 cm squared Mitral E to A Ratio 1.1 TV Peak Velocity 393.5 cm/s TR Peak Velocity 399.0 cm/s TR Peak Gradient 63.7 mmHg TR Mean Velocity 298.0 cm/s TR Mean Gradient 40.1 mmHg TR Velocity Time Integral 114.4 cm PV Peak Velocity 95.0 cm/s RV Ejection Time 0.3 s FINDINGS Left Ventricle Normal left ventricular size, systolic function and wall thickness, with no regional wall motion abnormalities. Left ventricular ejection fraction is estimated at 60 %. Grade II/IV diastolic dysfunction, moderately elevated filling pressures. Right Ventricle The right ventricle is normal in size and function. Right Atrium The right atrium is normal in size. Left Atrium Moderately increased left atrial size. Mitral Valve Structurally normal mitral valve. Mild mitral valve regurgitation. No mitral valve stenosis. Aortic Valve Structurally normal aortic valve without significant sclerosis or stenosis. There is no aortic regurgitation. Tricuspid Valve Moderate tricuspid valve regurgitation. Pulmonic Valve Mild pulmonary valve regurgitation. Pericardium Normal pericardium without effusion. Aorta Normal ascending aorta dimension. IVC The inferior vena cava appears normal. CONCLUSIONS Normal left ventricular size, systolic function and wall thickness, with no regional wall motion abnormalities. Left ventricular ejection fraction is estimated at 60 %. Grade II/IV diastolic dysfunction, moderately elevated filling pressures. Moderately increased left atrial size. Structurally normal mitral valve. Mild mitral valve regurgitation. No mitral valve stenosis. Moderate tricuspid valve regurgitation. Mild pulmonary valve regurgitatio There is no pericardial effusion. Right atrial pressure is around 5 mm of mercury. Deanna Marrufo MD (Electronically Signed) Final Date: 07 February 2025 17:41 S
[2025-02-07] MEDS: FUROsemide 10 mg/mL SDV 4mL 40 MG IVP (15:02)
[2025-02-07] MEDS: guaiFENesin 600 mg Tablet PO (17:27)
[2025-02-07] MEDS: latanoprost 0.005% Op Soln 2.5 mL Btl 1 DROP OPHTHALMIC (17:28)
[2025-02-07] MEDS: ALPRAZolam 0.5 mg Tablet 0.25 MG PO (22:08)
[2025-02-08] VITALS (24 sets, daily range): BP systolic 101–184; BP diastolic 40–82; PULSE 54–81; RESP 15–27; TEMP 36.4–36.8; O2SAT 92–100
[2025-02-08] MEDS: methylPREDNISolone sod succ 40 mg/mL INJ IVP ×2 (01:55→15:03)
[2025-02-08] MEDS: linezolid premix 600 MG/300 ML PREMIX 300 MG IV ×2 (01:55→15:02)
[2025-02-08 04:15] LABS: Mean Platelet Volume 9.6 fL (7.4-10.4); Monocytes # 0.5 10^3/uL (0.2-0.9); Nucleated Red Blood Cells % 0 %; Red Cell Distribution Width 15.3 % (12.1-15.1)
[2025-02-08 04:21] LABS: Basophils % 0.2 %; Eosinophils % 0.1 %; Hematocrit 33.6 % (36-47); Lymphocytes % 8.1 %; Mean Corpuscular HGB Conc 30.1 g/dL (30-55); Mean Corpuscular Hemoglobin 31.2 pg (27-33); Mean Corpuscular Volume 103.7 fl (85-98); Neutrophils # 10.86 10^3/uL (1.8-7.7); Neutrophils % 87.1 %; Platelet Count 472 10^3/cmm (157-399); Red Blood Count 3.24 10^6/uL (3.85-5.65); White Blood Count 12.46 10^3/uL (3.29-11.43)
[2025-02-08 04:40] LABS: Alanine Aminotransferase 10 U/L (0-33); Albumin Level 3.4 g/dL (3.5-5.2); Alkaline Phosphatase 155 U/L (35-105); Aspartate Amino Transferase 17 U/L (0-32); Blood Urea Nitrogen 34 mg/dL (8-23); Calcium 8.4 mg/dL (8.5-10.5); Chloride 87 mmol/L (98-107); Creatinine Clr Calc Pharmacy 36.8309; Globulin 2.9 g/dL (1.3-4.6); Glucose 116 mg/dL (65-115); Osmolality Calculated 293 mOsm/kg (285-295); Sodium 137 mmol/L (136-145); Total Bilirubin 0.2 mg/dL (0.15-1.2); Total Protein 6.3 g/dL (6.6-8.7)
[2025-02-08 04:47] LABS: Anion Gap 12.1 (5-19); Carbon Dioxide 42 mmol/L (22-29); Potassium 4.1 mmol/L (3.5-5.1)
[2025-02-08] MEDS: ipratropium-albuterol 3 mL Neb INHALATION ×6 (04:51→23:00)
[2025-02-08 05:04] LABS: NT Pro B Type Natriuretic Pept 2326 pg/mL (0-450); Procalcitonin 0.06 ng/mL (0-0.5)
[2025-02-08] MEDS: piperacillin-tazobactam 4.5 GM in sodium chloride 0.9% (plus) 50 ML IV ×3 (05:11→20:39)
[2025-02-08 05:20] LABS: C Reactive Protein 13.8 mg/L (0.0-4.9)
[2025-02-08] MEDS: budesonide 0.5 mg/2 mL Neb INHALATION ×2 (08:05→19:49)
[2025-02-08] MEDS: guaiFENesin 600 mg Tablet PO ×2 (09:24→17:36)
[2025-02-08] MEDS: carvedilol 25 mg Tablet PO ×2 (09:24→17:36)
[2025-02-08] MEDS: lisinopril 20 mg Tablet PO ×2 (09:24→17:34)
[2025-02-08] MEDS: dorzolamide/timolol Op Soln 10 mL Btl 1 DROP EYE-BOTH ×2 (09:27→17:36)
[2025-02-08] MEDS: collagenase oint 30 gm 1 APPLIC TOPICAL (09:27)
--- NOTE | 2025-02-08 13:26 | PC.NURSE ---
[facility] Report given to KATTY Leiva.. All questions answered.
--- NOTE | 2025-02-08 13:51 | PC.NURSE ---
Pt trasnferred to room 278-1. Belongings gathered by family and with family to room
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
[2025-02-08] MEDS: acetaminophen 325 mg Tablet 650 MG PO ×2 (17:33→23:43)
[2025-02-08] MEDS: latanoprost 0.005% Op Soln 2.5 mL Btl 1 DROP OPHTHALMIC (17:48)
[2025-02-08] MEDS: ALPRAZolam 0.5 mg Tablet 0.25 MG PO (20:40)
[2025-02-09] VITALS (17 sets, daily range): BP systolic 137–193; BP diastolic 61–81; PULSE 55–100; RESP 15–22; TEMP 36.3–36.9; O2SAT 96–100
[2025-02-09] MEDS: methylPREDNISolone sod succ 40 mg/mL INJ IVP (03:24)
[2025-02-09] MEDS: linezolid premix 600 MG/300 ML PREMIX 300 MG IV ×2 (03:25→16:23)
[2025-02-09] MEDS: ipratropium-albuterol 3 mL Neb INHALATION ×5 (04:34→19:31)
[2025-02-09 06:11] LABS: Basophils % 0.1 %; Eosinophils % 0.1 %; Hematocrit 30.9 % (36-47); Lymphocytes # 0.8 10^3/uL (0.8-4.8); Lymphocytes % 7.3 %; Mean Corpuscular HGB Conc 30.4 g/dL (30-55); Mean Corpuscular Hemoglobin 30.6 pg (27-33); Mean Corpuscular Volume 100.7 fl (85-98); Mean Platelet Volume 9.6 fL (7.4-10.4); Monocytes # 0.4 10^3/uL (0.2-0.9); Monocytes % 3.5 %; Neutrophils # 9.56 10^3/uL (1.8-7.7); Neutrophils % 88.5 %; Nucleated Red Blood Cells % 0 %; Platelet Count 431 10^3/cmm (157-399); Red Blood Count 3.07 10^6/uL (3.85-5.65); Red Cell Distribution Width 15.3 % (12.1-15.1)
[2025-02-09] MEDS: piperacillin-tazobactam 4.5 GM in sodium chloride 0.9% (plus) 50 ML IV (06:22)
[2025-02-09 06:33] LABS: Alanine Aminotransferase 10 U/L (0-33); Albumin Level 3.4 g/dL (3.5-5.2); Alkaline Phosphatase 148 U/L (35-105); Anion Gap 8.1 (5-19); Aspartate Amino Transferase 13 U/L (0-32); Blood Urea Nitrogen 29 mg/dL (8-23); Calcium 8.1 mg/dL (8.5-10.5); Chloride 88 mmol/L (98-107); Creatinine Clr Calc Pharmacy 37.0203; Globulin 2.6 g/dL (1.3-4.6); Glucose 110 mg/dL (65-115); Osmolality Calculated 286 mOsm/kg (285-295); Potassium 4.1 mmol/L (3.5-5.1); Sodium 135 mmol/L (136-145); Total Bilirubin 0.3 mg/dL (0.15-1.2)
[2025-02-09 06:34] LABS: C Reactive Protein 8.1 mg/L (0.0-4.9)
[2025-02-09 06:39] LABS: Procalcitonin 0.06 ng/mL (0-0.5)
[2025-02-09 07:06] LABS: Carbon Dioxide 43 mmol/L (22-29)
[2025-02-09 07:37] LABS: NT Pro B Type Natriuretic Pept 1475 pg/mL (0-450)
[2025-02-09] MEDS: budesonide 0.5 mg/2 mL Neb INHALATION ×2 (07:56→19:31)
--- NOTE | 2025-02-09 08:00 | FL_ITS ---
WS: [id number] MODIFIED BARIUM SWALLOW TECHNIQUE: Modified barium swallow with speech therapy using multiple consistencies. FLUOROSCOPY TIME: 1min [id number] # of spot films: 1 CLINICAL INFORMATION: Oral dysphagia COMPARISON: None. FINDINGS: Multiple consistencies utilized. Early spillage. Pooling in the vallecula. Residual cleared with additional liquids. Penetration with thin liquids. No darien aspiration. No difficulties with the barium tablet. FL/FL barium swallow modifd [id number] IMPRESSION: 1. Early spillage and pooling in the vallecula 2. Penetration with thin liquids. No darien aspiration. 3. No difficulties with the barium tablet.
[2025-02-09] MEDS: guaiFENesin 600 mg Tablet PO ×2 (08:21→17:16)
[2025-02-09] MEDS: lisinopril 20 mg Tablet PO ×2 (08:21→17:16)
[2025-02-09] MEDS: collagenase oint 30 gm 1 APPLIC TOPICAL (08:21)
[2025-02-09] MEDS: carvedilol 25 mg Tablet PO ×2 (08:21→17:16)
[2025-02-09] MEDS: dorzolamide/timolol Op Soln 10 mL Btl 1 DROP EYE-BOTH ×2 (08:21→17:16)
--- NOTE | 2025-02-09 09:43 | PC.CHAP ---
Pastoral Care Encounter/Spiritual Assessment Type of Contact [] Declined roll tester visit [] Patient/Family/Request visit [] Outpatient visit [] Follow-up visit [] Physician referral [] Code/Alert [x] Routine visit [] Staff referral [] Actively dying [] Patient sleeping [x] Family support [] [] Out of room [] Palliative care [] [] Receiving care in room [] Pre-surgical visit [] Trauma [] Long length of stay [] ICU visit [] Other: Relational/Emotional Strength [] Patient feels connected with others/family/visitors/staff [] Distress [] Loneliness/isolation [] Abandonment Spirituality of Patient [x] Person of Mary [] Attends Sikhism of their Mary [x] Believes in Prayer [] Reads Bible or Christianity materials [] There are Spiritual issues to be addressed Welder Interventions [x] Prayer [x] Active listening [] Non-anxious presence [] Spiritual/emotional support [] Crisis/trauma care [] Spiritual counseling [] Bereavement support [] Provided bereavement packet [x] Provided Bible/devotional materials [] Provided toy/stuffed animal, coloring book to patient or family member [] Provided Communion [] Anointing/Fonda [] Salvation [x] Completed spiritual assessment [] Other: Impact on Illness or Injury [] Angry [] Fearful [] Anxious [] Often cries [] Exhaustion [] Unable to work [] Unable to attend anabaptist [] Unable to walk/stand [] Unable to read [] Unable to drive [] Unable to eat/drink [] Unable to sleep [] Unable to be with family [] Patient intubated [] Other: Summary Time spent with patient 10 min
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
[2025-02-09] MEDS: piperacillin-tazobactam 3.375 GM in sodium chloride 0.9% (plus) 50 ML IV ×2 (13:13→21:20)
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
--- NOTE | 2025-02-09 15:50 | PM.CONSULT ---
Providers/Reason For Consult Consulting Physician/Specialty*: Dr. Tovar general surgery Reason for Consult*: Left lower extremity chronic wound. Attending Physician: Husam Trujillo MD Primary Care Provider: Chet Stallings MD History of Present Illness History of Present Illness Germaine Galvez is a 89 year old female whom surgery was consulted for chronic wound left lower extremity. 5 Centimeters in diameter approximately. Large scab at wound base. Wound care has been doing Santyl. Medications/Allergies Home Medications ?Medication ?Instructions ?Recorded ?Confirmed ?Last Taken ?Type latanoprost 0.005 % eye drops 1 drp ophthalmic (eye) QPM 05/09/22 02/06/25 02/04/25 History ascorbic acid (vitamin C) 500 mg 500 mg PO DAILY 05/04/23 02/06/25 02/04/25 History tablet (Vitamin C) cholecalciferol (vitamin D3) 25 25 mcg PO DAILY 05/04/23 02/06/25 02/04/25 History mcg (1,000 unit) capsule (Vitamin D3) dorzolamide 22.3 mg-timolol 6.8 1 drp ophthalmic (eye) BID 05/04/23 02/06/25 02/04/25 History mg/mL eye drops carvedilol 25 mg tablet 25 mg PO BID #180 tabs 10/30/24 02/06/25 02/04/25 Rx fluticasone fur. 100 mcg-umeclid 1 inh inhalation DAILY 10/30/24 02/06/25 02/04/25 History 62.5 mcg-vilant 25 mcg inhalat.powder (Trelegy Ellipta) lisinopril 20 mg tablet 20 mg PO BID #180 tabs 10/30/24 02/06/25 02/04/25 Rx acetaminophen 500 mg tablet 500 mg PO Q6H PRN Pain 02/03/25 02/06/25 02/03/25 History alprazolam 0.25 mg tablet 0.125 mg (1/2 x 0.25 mg) PO BID 02/03/25 02/06/25 02/03/25 Rx PRN anxiety #30 tabs Allergies Allergy/AdvReac Type Severity Reaction Status Date / Time ciprofloxacin Allergy ALGY-Rash Verified 02/03/25 15:14 sulfamethoxazole (From Allergy ALGY-Rash Verified 02/03/25 15:14 Bactrim) trimethoprim (From Bactrim) Allergy ALGY-Rash Verified 02/03/25 15:14 Current Medications Generic Name Dose Route Start Last Admin Trade Name Airam PRN Reason Stop Dose Admin Acetaminophen 650 mg 02/06/25 02:42 02/08/25 23:43 Acetaminophen 325 Mg Tablet PO 650 mg Q6H PRN Administration Mild/Mod Pain Or Temp >/= 101 Albuterol/Ipratropium 3 ml 02/06/25 20:00 02/09/25 15:25 Ipratropium-Albuterol 3 Ml Neb INHALATION 3 ml Q4H.RESPIRATORY ANDIE Administration Alprazolam 0.25 mg 02/07/25 21:51 02/08/25 20:40 Alprazolam 0.5 Mg Tablet PO 0.25 mg BID PRN Administration ANXIETY Budesonide 0.5 mg 02/06/25 08:00 02/09/25 07:56 Budesonide 0.5 Mg/2 Ml Neb INHALATION 0.5 mg BID.RESPIRATORY ANDIE Administration Carvedilol 25 mg 02/06/25 09:00 02/09/25 08:21 Carvedilol 25 Mg Tablet PO 25 mg BID ANDIE Administration Collagenase 1 applic 02/06/25 14:00 02/09/25 08:21 Collagenase Oint 30 Gm TOPICAL 1 applic DAILY ANDIE Administration Dorzolamide/Timolol 1 drop 02/06/25 09:00 02/09/25 08:21 Dorzolamide/Timolol Op Soln 10 Ml Btl EYE-BOTH 1 drop BID ANDIE Administration Guaifenesin 600 mg 02/07/25 18:00 02/09/25 08:21 Guaifenesin 600 Mg Tablet PO 600 mg BID ANDIE Administration Linezolid 600 mg in 300 mls @ 300 mls/hr 02/06/25 02:42 02/09/25 04:27 Zyvox Premix IV Infused Q12H ANDIE Infusion Protocol Piperacillin Sod/Tazobactam 50 mls @ 12.5 mls/hr 02/09/25 13:00 02/09/25 13:13 Sod 3.375 gm/ Sodium Chloride IV 12.5 mls/hr Q8H ANDIE Administration Latanoprost 1 drop 02/06/25 18:00 02/08/25 17:48 Latanoprost 0.005% Op Soln 2.5 Ml Btl OPHTHALMIC 1 drop QPM ANDIE Administration Lisinopril 20 mg 02/06/25 09:00 02/09/25 08:21 Lisinopril 20 Mg Tablet PO 20 mg BID ANDIE Administration PFSH Acute PFSH: Medical History Bronchiectasis Chronic hypoxic respiratory failure COPD (chronic obstructive pulmonary disease) Davi's granulomatosis Urrutia syndrome History of malignant melanoma Hypertension Cataract Surgical History H/O: hysterectomy H/O lumpectomy Family History Mother Diabetes Social History Smoking and tobacco/nicotine status: never used tobacco/nicotine Alcohol intake: never Vitals/I&O/Wt Last Vital Signs Temp 98.4 F 02/09/25 11:49 Pulse 71 02/09/25 15:25 Resp 18 02/09/25 15:25 BP 182/74 02/09/25 11:49 Pulse Ox 96 02/09/25 15:25 O2 Del Method Nasal Cannula 02/09/25 15:25 O2 Flow Rate 2 02/09/25 15:25 FiO2 28 02/09/25 04:34 02/09/25 02/09/25 02/09/25 06:59 14:59 22:59 Intake Total 300 / 1100 50 / 50 Balance 300 / 1100 50 / 50 Weight last 48 hrs Weight 112 lb 9.6 oz Weight 111 lb 1.6 oz Physical Exam Narrative: Chest: Unlabored breathing room air. No lymphadenopathy. Heart: Regular rate and rhythm. Abdomen: Soft, nontender, nondistended. No masses or lymphadenopathy. Left lower extremity chronic wound 5 cm in diameter over left ankle. Large scab at wound base. Data 02/10/25 04:11 02/10/25 04:11 Micro: Microbiology 02/06/25 10:05 Mycobacterial Smear - Preliminary Body Fluids - Pleura 02/06/25 08:45 Gram Stain - Final Pleural Fluid Body Fluid Culture - Final A&P Assessment and plan (1) Traumatic open wound of left lower leg: Qualifiers: Encounter type: initial encounter Qualified Code(s): S81.802A - Unspecified open wound, left lower leg, initial encounter Plan 89-year-old female who presents with a left lower extremity chronic wound at left ankle. Will proceed with debridement in the operating room of left lower extremity chronic wound on 02/11/2025. Discussed with hospitalist. N.p.o. after midnight. PDMP PDMP Reviewed: Not Reviewed Coding Level of Care Code 04905 Diagnoses Traumatic open wound of left lower leg, initial encounter S81.802A Encounter type: initial encounter
[2025-02-09] MEDS: latanoprost 0.005% Op Soln 2.5 mL Btl 1 DROP OPHTHALMIC (17:16)
[2025-02-10] VITALS (17 sets, daily range): BP systolic 116–177; BP diastolic 62–77; PULSE 62–89; RESP 16–18; TEMP 36.7–36.9; O2SAT 92–98
[2025-02-10] MEDS: linezolid premix 600 MG/300 ML PREMIX 300 MG IV ×2 (02:39→14:29)
[2025-02-10] MEDS: ipratropium-albuterol 3 mL Neb INHALATION ×5 (04:21→20:26)
[2025-02-10 04:51] LABS: Basophils % 0.2 %; Eosinophils # 0.1 10^3/uL (0.0-0.8); Hematocrit 35.3 % (36-47); Lymphocytes # 1.3 10^3/uL (0.8-4.8); Lymphocytes % 12.8 %; Mean Corpuscular HGB Conc 30.3 g/dL (30-55); Mean Corpuscular Hemoglobin 31.1 pg (27-33); Mean Corpuscular Volume 102.6 fl (85-98); Mean Platelet Volume 9.2 fL (7.4-10.4); Monocytes # 0.8 10^3/uL (0.2-0.9); Monocytes % 7.9 %; Neutrophils # 8.01 10^3/uL (1.8-7.7); Neutrophils % 77.6 %; Nucleated Red Blood Cells % 0 %; Platelet Count 413 10^3/cmm (157-399); Red Blood Count 3.44 10^6/uL (3.85-5.65); Red Cell Distribution Width 15.1 % (12.1-15.1); White Blood Count 10.31 10^3/uL (3.29-11.43)
[2025-02-10] MEDS: piperacillin-tazobactam 3.375 GM in sodium chloride 0.9% (plus) 50 ML IV ×3 (05:01→19:56)
[2025-02-10 05:07] LABS: Alanine Aminotransferase 10 U/L (0-33); Albumin Level 3.5 g/dL (3.5-5.2); Alkaline Phosphatase 148 U/L (35-105); Anion Gap 10.8 (5-19); Aspartate Amino Transferase 13 U/L (0-32); Blood Urea Nitrogen 25 mg/dL (8-23); Calcium 8.4 mg/dL (8.5-10.5); Carbon Dioxide 40 mmol/L (22-29); Chloride 90 mmol/L (98-107); Creatinine Clr Calc Pharmacy 37.0203; Globulin 2.6 g/dL (1.3-4.6); Glucose 110 mg/dL (65-115); Osmolality Calculated 289 mOsm/kg (285-295); Potassium 3.8 mmol/L (3.5-5.1); Sodium 137 mmol/L (136-145); Total Bilirubin 0.3 mg/dL (0.15-1.2); Total Protein 6.1 g/dL (6.6-8.7)
[2025-02-10 05:17] LABS: NT Pro B Type Natriuretic Pept 1878 pg/mL (0-450)
[2025-02-10 05:18] LABS: Procalcitonin 0.05 ng/mL (0-0.5)
[2025-02-10 05:29] LABS: C Reactive Protein 5.2 mg/L (0.0-4.9); Magnesium 2.3 mg/dL (1.7-2.3); Phosphorus 2.7 mg/dL (2.5-4.5)
--- NOTE | 2025-02-10 07:00 | XRR_ITS ---
PROCEDURE INFORMATION: Exam: XR Chest Exam date and time: 02/10/2025 7:18 AM Age: 89 years old Clinical indication: Shortness of breath; Additional info: SOB TECHNIQUE: Imaging protocol: Radiologic exam of the chest. Views: 1 view. COMPARISON: CR (CHEST, ) 02/07/2025 8:56 AM FINDINGS: Lungs: Increasing opacity at the left lung base. Stable mild opacity on the right. Mild diffuse interstitial prominence unchanged. Pleural spaces: Unremarkable. No pleural effusion. No pneumothorax. Heart/Mediastinum: Mild cardiomegaly. Vasculature: Uncoiling of the thoracic aorta. Bones/joints: Unremarkable. XR/XR chest 1V portable [id number] IMPRESSION: Increasing opacity at the left lung base.
[2025-02-10] MEDS: budesonide 0.5 mg/2 mL Neb INHALATION ×2 (08:23→20:26)
--- NOTE | 2025-02-10 08:25 | XRR_ITS ---
PROCEDURE INFORMATION: Exam: XR Left Foot Exam date and time: 02/10/2025 8:56 AM Age: 89 years old Clinical indication: Injury or trauma; Fall; Blunt trauma; Foot; Left; HX of melanoma TECHNIQUE: Imaging protocol: Radiologic exam of the left foot. Views: 1 or 2 views. COMPARISON: CR XR tibia fibula LT 2V [id number] 01/16/2025 3:00 PM FINDINGS: Bones/joints: Interphalangeal articular surface narrowing and spurring.. Moderate diffuse osteopenia. No fracture or dislocation. Soft tissues: Normal. XR/XR foot LT 2V [id number] IMPRESSION: No acute findings.
--- NOTE | 2025-02-10 08:25 | XRR_ITS ---
PROCEDURE INFORMATION: Exam: XR Left Tibia and Fibula Exam date and time: 02/10/2025 8:58 AM Age: 89 years old Clinical indication: Injury or trauma; Fall; Blunt trauma; Lower leg; Left; Injury details: HX of melanoma TECHNIQUE: Imaging protocol: Radiologic exam of the left tibia and fibula. Views: 2 views. COMPARISON: CR XR tibia fibula LT 2V [id number] 01/16/2025 3:00 PM FINDINGS: Bones/joints: Normal. No fracture or dislocation. No lytic or sclerotic bone lesion. Soft tissues: Normal. XR/XR tibia fibula LT 2V [id number] IMPRESSION: No acute findings.
[2025-02-10] MEDS: lisinopril 20 mg Tablet PO ×2 (09:10→17:20)
[2025-02-10] MEDS: FUROsemide 10 mg/mL SDV 2mL 20 MG IVP (09:11)
[2025-02-10] MEDS: collagenase oint 30 gm 1 APPLIC TOPICAL (09:11)
[2025-02-10] MEDS: guaiFENesin 600 mg Tablet PO ×2 (09:11→17:20)
[2025-02-10] MEDS: predniSONE 20 mg Tablet 40 MG PO (09:11)
[2025-02-10] MEDS: carvedilol 25 mg Tablet PO ×2 (09:11→17:20)
[2025-02-10] MEDS: dorzolamide/timolol Op Soln 10 mL Btl 1 DROP EYE-BOTH ×2 (09:12→17:19)
--- NOTE | 2025-02-10 10:18 | PC.CHAP ---
Pastoral Care Encounter/Spiritual Assessment Type of Contact [] Declined medical associate visit [] Patient/Family/Request visit [] Outpatient visit [] Follow-up visit [] Physician referral [] Code/Alert [x] Routine visit [] Staff referral [] Actively dying [] Patient sleeping [x] Family support [] [] Out of room [] Palliative care [] [] Receiving care in room [] Pre-surgical visit [] Trauma [] Long length of stay [] ICU visit [] Other: Relational/Emotional Strength [x] Patient feels connected with others/family/visitors/staff [] Distress [] Loneliness/isolation [] Abandonment Spirituality of Patient [x] Person of Mary x[x] Attends Adventism of their Mary [x] Believes in Prayer [x] Reads Bible or Cheondoism materials [] There are Spiritual issues to be addressed [place] [employer] Interventions [x] Prayer [x] Active listening [x] Non-anxious presence [x] Spiritual/emotional support [] Crisis/trauma care [] Spiritual counseling [] Bereavement support [] Provided bereavement packet [] Provided Bible/devotional materials [] Provided toy/stuffed animal, coloring book to patient or family member [] Provided Communion [] Anointing/[place] [] Salvation [x] Completed spiritual assessment [] Other: Impact on Illness or Injury [] Angry [] Fearful [] Anxious [] Often cries [] Exhaustion [] Unable to work [] Unable to attend anglican [] Unable to walk/stand [] Unable to read [] Unable to drive [] Unable to eat/drink [] Unable to sleep [] Unable to be with family [] Patient intubated [] Other: Summary Time spent with patient 10 min
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
[2025-02-10] MEDS: latanoprost 0.005% Op Soln 2.5 mL Btl 1 DROP OPHTHALMIC (17:20)
[2025-02-10 20:29] LABS: Amylase, Pleural Fluid 67 U/L
[2025-02-11] VITALS (26 sets, daily range): BP systolic 110–169; BP diastolic 51–111; PULSE 62–98; RESP 15–23; TEMP 36.1–37.1; O2SAT 94–100
[2025-02-11] MEDS: ipratropium-albuterol 3 mL Neb INHALATION ×5 (00:23→23:23)
[2025-02-11] MEDS: linezolid premix 600 MG/300 ML PREMIX 300 MG IV ×2 (02:15→14:13)
[2025-02-11 05:46] LABS: Basophils % 0.1 %; Eosinophils # 0.1 10^3/uL (0.0-0.8); Eosinophils % 1.2 %; Hematocrit 33.7 % (36-47); Lymphocytes # 1.8 10^3/uL (0.8-4.8); Mean Corpuscular HGB Conc 30.3 g/dL (30-55); Mean Corpuscular Hemoglobin 30.6 pg (27-33); Mean Corpuscular Volume 101.2 fl (85-98); Mean Platelet Volume 9.3 fL (7.4-10.4); Monocytes # 0.8 10^3/uL (0.2-0.9); Neutrophils # 8.02 10^3/uL (1.8-7.7); Neutrophils % 74.2 %; Nucleated Red Blood Cells % 0 %; Platelet Count 413 10^3/cmm (157-399); Red Blood Count 3.33 10^6/uL (3.85-5.65); Red Cell Distribution Width 14.8 % (12.1-15.1); White Blood Count 10.81 10^3/uL (3.29-11.43)
[2025-02-11] MEDS: piperacillin-tazobactam 3.375 GM in sodium chloride 0.9% (plus) 50 ML IV ×2 (06:16→14:09)
--- NOTE | 2025-02-11 06:16 | PC.NURSE ---
COMPUTER ON [employer] IS NOT LOADING [employer]. THIS RN ADMINISTERED MEDICATIONS ACCORDING TO PAPER MAR AND THE MAR ON THE DESKTOP COMPUTER.
[2025-02-11 06:18] LABS: Procalcitonin 0.06 ng/mL (0-0.5)
[2025-02-11 06:29] LABS: NT Pro B Type Natriuretic Pept 1202 pg/mL (0-450)
[2025-02-11] MEDS: sodium chloride 0.9% 1,000 ML 30 ML IV (06:38)
[2025-02-11 06:45] LABS: Alanine Aminotransferase 9 U/L (0-33); Albumin Level 3.5 g/dL (3.5-5.2); Alkaline Phosphatase 145 U/L (35-105); Anion Gap 11.6 (5-19); Aspartate Amino Transferase 12 U/L (0-32); Blood Urea Nitrogen 31 mg/dL (8-23); Calcium 8.3 mg/dL (8.5-10.5); Carbon Dioxide 39 mmol/L (22-29); Chloride 91 mmol/L (98-107); Creatinine Clr Calc Pharmacy 36.3389; Globulin 2.5 g/dL (1.3-4.6); Glucose 96 mg/dL (65-115); Osmolality Calculated 292 mOsm/kg (285-295); Potassium 3.6 mmol/L (3.5-5.1); Sodium 138 mmol/L (136-145); Total Bilirubin 0.3 mg/dL (0.15-1.2)
[2025-02-11 06:50] LABS: C Reactive Protein 5.9 mg/L (0.0-4.9); Magnesium 2.3 mg/dL (1.7-2.3); Phosphorus 3.1 mg/dL (2.5-4.5)
--- NOTE | 2025-02-11 06:55 | ANES.PREANE2 ---
Pre-Anesthetic Assessment Height/Weight: Height 1.63 m Weight 48.625 kg Temp Pulse Resp BP Pulse Ox O2 Del Method O2 Flow Rate 97.6 F 75 16 110/76 94 Nasal Cannula 2 02/11/25 06:35 02/11/25 06:35 02/11/25 06:35 02/11/25 06:35 02/11/25 06:35 02/11/25 06:35 02/11/25 06:35 FiO2 28 02/09/25 04:34 Operation Date: 02/11/25 07:00 Proposed Procedures p Incision And Drainage(Left) - Carlos Tovar MD Familial anesthetic complications: None Was Beta Dariana taken within 24 hours: N/A Was Clonidine taken within 24 hours: N/A Last intake: Intake Last Liquid Date 02/10/25 Last Liquid Time 19:00 Last Solid Date 02/10/25 Last Solid Time 17:30 Social No alcohol and No tobacco Exam alert, oriented x 3, clear to auscultation bilaterally (diminished L, R upper crackle) and regular rate & rhythm Airway Dentition: full Pulmonary Chronic Obstructive Pulmonary Disease PUlm fibrosis CV/HEM Congestive Heart Failure and Hypertension EF 60%, mod TVR, grade II diastolic dysfx Anesthetic Plan ASA status: 4 Anesthesia: General Risk of > 500 ml blood loss (7ml/kg in children): No Other Pertinent Information davi's granulomatosis Medications/Allergies Home Medications ?Medication ?Instructions ?Recorded ?Confirmed ?Last Taken ?Type latanoprost 0.005 % eye drops 1 drp ophthalmic (eye) QPM 05/09/22 02/06/25 02/04/25 History ascorbic acid (vitamin C) 500 mg 500 mg PO DAILY 05/04/23 02/06/25 02/04/25 History tablet (Vitamin C) cholecalciferol (vitamin D3) 25 25 mcg PO DAILY 05/04/23 02/06/25 02/04/25 History mcg (1,000 unit) capsule (Vitamin D3) dorzolamide 22.3 mg-timolol 6.8 1 drp ophthalmic (eye) BID 05/04/23 02/06/25 02/04/25 History mg/mL eye drops carvedilol 25 mg tablet 25 mg PO BID #180 tabs 10/30/24 02/06/25 02/04/25 Rx fluticasone fur. 100 mcg-umeclid 1 inh inhalation DAILY 10/30/24 02/06/25 02/04/25 History 62.5 mcg-vilant 25 mcg inhalat.powder (Trelegy Ellipta) lisinopril 20 mg tablet 20 mg PO BID #180 tabs 10/30/24 02/06/25 02/04/25 Rx acetaminophen 500 mg tablet 500 mg PO Q6H PRN Pain 02/03/25 02/06/25 02/03/25 History alprazolam 0.25 mg tablet 0.125 mg (1/2 x 0.25 mg) PO BID 02/03/25 02/06/25 02/03/25 Rx PRN anxiety #30 tabs Allergies Allergy/AdvReac Type Severity Reaction Status Date / Time ciprofloxacin Allergy ALGY-Rash Verified 02/03/25 15:14 sulfamethoxazole (From Allergy ALGY-Rash Verified 02/03/25 15:14 Bactrim) trimethoprim (From Bactrim) Allergy ALGY-Rash Verified 02/03/25 15:14 Current Medications Generic Name Dose Route Start Last Admin Trade Name Freq PRN Reason Stop Dose Admin Acetaminophen 650 mg 02/06/25 02:42 02/08/25 23:43 Acetaminophen 325 Mg Tablet PO 650 mg On Hold: 02/11/25 06:26 Q6H PRN Administration Comment: Order held by Process Mild/Mod Pain Or Temp >/= 101 Transfer Albuterol/Ipratropium 3 ml 02/06/25 20:00 02/11/25 06:22 Ipratropium-Albuterol 3 Ml Neb INHALATION 3 ml On Hold: 02/11/25 06:26 Q4H.RESPIRATORY ANDIE Administration Comment: Order held by Process Transfer Alprazolam 0.25 mg 02/07/25 21:51 02/08/25 20:40 Alprazolam 0.5 Mg Tablet PO 0.25 mg On Hold: 02/11/25 06:26 BID PRN Administration Comment: Order held by Process ANXIETY Transfer Budesonide 0.5 mg 02/06/25 08:00 02/10/25 20:26 Budesonide 0.5 Mg/2 Ml Neb INHALATION 0.5 mg On Hold: 02/11/25 06:26 BID.RESPIRATORY ANDIE Administration Comment: Order held by Process Transfer Carvedilol 25 mg 02/06/25 09:00 02/10/25 17:20 Carvedilol 25 Mg Tablet PO 25 mg On Hold: 02/11/25 06:26 BID ANDIE Administration Comment: Order held by Process Transfer Collagenase 1 applic 02/06/25 14:00 02/10/25 09:11 Collagenase Oint 30 Gm TOPICAL 1 applic On Hold: 02/11/25 06:26 DAILY ANDIE Administration Comment: Order held by Process Transfer Dorzolamide/Timolol 1 drop 02/06/25 09:00 02/10/25 17:19 Dorzolamide/Timolol Op Soln 10 Ml Btl EYE-BOTH 1 drop On Hold: 02/11/25 06:26 BID ANDIE Administration Comment: Order held by Process Transfer Guaifenesin 600 mg 02/07/25 18:00 02/10/25 17:20 Guaifenesin 600 Mg Tablet PO 600 mg On Hold: 02/11/25 06:26 BID ANDIE Administration Comment: Order held by Process Transfer Linezolid 600 mg in 300 mls @ 300 mls/hr 02/06/25 02:42 02/11/25 05:42 Zyvox Premix IV Infused On Hold: 02/11/25 06:26 Q12H ANDIE Infusion Comment: Order held by Process Protocol Transfer Piperacillin Sod/Tazobactam 50 mls @ 12.5 mls/hr 02/09/25 13:00 02/11/25 06:16 Sod 3.375 gm/ Sodium Chloride IV 12.5 mls/hr Q8H ANDIE Administration Sodium Chloride 1,000 mls @ 30 mls/hr 02/11/25 06:30 02/11/25 06:38 Sodium Chloride 0.9% IV 02/12/25 06:29 30 mls/hr .Q24H ANDIE Administration Latanoprost 1 drop 02/06/25 18:00 02/10/25 17:20 Latanoprost 0.005% Op Soln 2.5 Ml Btl OPHTHALMIC 1 drop On Hold: 02/11/25 06:26 QPM ANDIE Administration Comment: Order held by Process Transfer Lisinopril 20 mg 02/06/25 09:00 02/10/25 17:20 Lisinopril 20 Mg Tablet PO 20 mg On Hold: 02/11/25 06:26 BID ANDIE Administration Comment: Order held by Process Transfer Prednisone 40 mg 02/10/25 09:00 02/10/25 09:11 Prednisone 20 Mg Tablet PO 40 mg On Hold: 02/11/25 06:26 DAILY ANDIE Administration Comment: Order held by Process Transfer [facility] Anesthesia Medical History Bronchiectasis Chronic hypoxic respiratory failure COPD (chronic obstructive pulmonary disease) Davi's granulomatosis Urrutia syndrome History of malignant melanoma Hypertension Cataract Surgical History H/O: hysterectomy H/O lumpectomy Family History Mother Diabetes Social History Smoking and tobacco/nicotine status: never used tobacco/nicotine Alcohol intake: never Data Anesthesia 02/11/25 04:54 02/11/25 04:54 Short CBC 02/10/25 02/11/25 Range/Units 04:11 04:54 WBC 10.31 10.81 (3.29-11.43) 10^3/uL Hgb 10.70 L 10.20 L (11.27-16.99) g/dL Hct 35.3 L 33.7 L (36-47) % MCV 102.6 H 101.2 H (85-98) fl Plt Count 413 H 413 H (157-399) 10^3/cmm Neut % (Auto) 77.6 74.2 % Neut # (Auto) 8.01 H 8.02 H (1.8-7.7) 10^3/uL BMP 02/09/25 02/10/25 02/11/25 05:25 04:11 04:54 Sodium 135 L 137 138 Potassium 3.8 3.6 Chloride 88 L 90 L 91 L Carbon Dioxide 43 H* 40 H 39 H BUN 29 H 25 H 31 H Creatinine 0.9 0.9 Glucose 110 96 Calcium 8.1 L 8.4 L 8.3 L Cardiac Enzymes 02/09/25 02/10/25 02/11/25 Range/Units 05:25 04:11 04:54 NT-Pro-B Natriuret Pep 1475 H 1878 H 1202 H (0-450) pg/mL Liver Function 02/09/25 02/10/25 02/11/25 Range/Units 05:25 04:11 04:54 Total Bilirubin 0.3 0.3 (0.15-1.2) mg/dL AST 13 12 (0-32) U/L ALT 10 9 (0-33) U/L Alkaline Phosphatase 148 H 148 H 145 H (35-105) U/L Albumin 3.4 L 3.5 3.5 (3.5-5.2) g/dL Coags 02/10/25 02/11/25 04:11 04:54 C-Reactive Protein 5.2 H 5.9 H Microbiology 02/05/25 21:16 Blood Culture - Final Blood NO GROWTH AFTER 5 DAYS 02/05/25 21:11 Blood Culture - Final Blood NO GROWTH AFTER 5 DAYS Cardiac Studies: Echocardiogram 02/07/25
--- NOTE | 2025-02-11 07:08 | P.PN_ITS ---
Subjective 2 Subjective: Left lower extremity wound with scab Vitals/I&O/Wt Last Vital Signs Temp 97.6 F 02/11/25 06:35 Pulse 75 02/11/25 06:35 Resp 16 02/11/25 06:35 BP 110/76 02/11/25 06:35 Pulse Ox 94 02/11/25 06:35 O2 Del Method Nasal Cannula 02/11/25 06:35 O2 Flow Rate 2 02/11/25 06:35 FiO2 28 02/09/25 04:34 02/10/25 02/11/25 02/11/25 22:59 06:59 14:59 Intake Total 590 / 640 350 / 990 Balance 590 / 640 350 / 990 Weight last 48 hrs Weight 107 lb 3.2 oz Weight 107 lb 3.2 oz Weight 108 lb 6.4 oz Physical Exam 2 Narrative: Chest: Unlabored breathing room air. No lymphadenopathy. Heart: Regular rate and rhythm. Abdomen: Soft, nontender, nondistended. No masses or lymphadenopathy. Left lower extremity: Chronic wound with a scab left ankle Data 02/11/25 04:54 02/11/25 04:54 Micro: Microbiology 02/05/25 21:16 Blood Culture - Final Blood NO GROWTH AFTER 5 DAYS 02/05/25 21:11 Blood Culture - Final Blood NO GROWTH AFTER 5 DAYS A&P Assessment and plan (1) Traumatic open wound of left lower leg: Plan 89-year-old female who presents with a chronic wound left ankle. Discussed risk and benefits and patient agrees to proceed with debridement of left lower extremity wound. Marked surgical site in preop with patient's assistance. PDMP PDMP Reviewed: Not Reviewed Attestations 2 Medical Necessity Statement*: NA Coding Level of Care Code 31055 Diagnoses Traumatic open wound of left lower leg, initial encounter S81.802A Encounter type: initial encounter
--- NOTE | 2025-02-11 07:41 | P.OP_ITS ---
Operative Report Date of procedure: February 11, 2025 Pre-op diagnosis: Chronic left lower extremity wound Post-op diagnosis: same Post-op findings: Chronic left lower extremity wound. Dorsum of left ankle. 6 x 4 cm debrided down to fat. Evacuated old hematoma. Packed with Kerlix moistened with Betadine. Wrapped with dry gauze and Mundo wrap. Procedure done: Sharp debridement of left lower extremity chronic wound Implants: N/A Specimens removed/disposition: N/A Pathology: N/A Surgeon: Carlos Tovar MD Specialties Operator: N/A Anesthesia: MAC Estimated blood loss (mL): 20 Complications: N/A Findings: Chronic left lower extremity wound. Dorsum of left ankle. 6 x 4 cm debrided down to fat. Evacuated old hematoma. Packed with Kerlix moistened with Betadine. Wrapped with dry gauze and Mundo wrap. Condition: stable Disposition: floor Brief History: 89-year-old female who presents with a chronic left lower extremity wound over the dorsum of the left ankle. Discussed risk and benefits and patient agreed to proceed with sharp debridement of chronic wound in the operating room. Procedure: Consent was obtained in the preop area. The left lower extremity was marked. Patient was brought into the operating room. MAC was induced. The left lower extremity was prepped and draped in the usual sterile fashion using Betadine. A 10 blade was used to sharply debride the scab over the left lower extremity chronic wound on the dorsum of the ankle. I managed to evacuate old hematoma about 30 cc. I debrided down to bleeding tissues. Deepest layer involved was fat. I also debrided the edges of the wound sharply. Adequate hemostasis was achieved using electrocautery. Total area of debridement was 28 cm2 down to fat. The wound was packed using Kerlix moistened Betadine. An abdominal pad was placed. The left lower extremity was wrapped using Kerlix and Mundo wrap. The patient woke up from anesthesia without any complications.
--- NOTE | 2025-02-11 08:15 | ANE.PACU2 ---
Inpatient post-anesthesia follow up: Airway intact: Yes Vital signs: Temperature 98.1 F Pulse Rate 82 Respiratory Rate 16 Blood Pressure 137/73 Pulse Oximetry 98 Oxygen Delivery Me thod Nasal Cannula Oxygen Flow Rate 2 Fraction of Inspir ed Oxygen 28 Hydration adequate: Yes Nausea and vomiting: No Pain level: 1 Mental status: Baseline
--- NOTE | 2025-02-11 08:27 | PC.NURSE ---
0825 - accepted into room 278-1 with KATTY Leiva at [facility] - pt in no distress upon this nurse exiting care
[2025-02-11] MEDS: guaiFENesin 600 mg Tablet PO ×2 (09:45→17:49)
[2025-02-11] MEDS: predniSONE 20 mg Tablet 40 MG PO (09:45)
[2025-02-11] MEDS: carvedilol 25 mg Tablet PO ×2 (09:47→17:49)
[2025-02-11] MEDS: lisinopril 20 mg Tablet PO ×2 (09:48→17:49)
[2025-02-11] MEDS: dorzolamide/timolol Op Soln 10 mL Btl 1 DROP EYE-BOTH ×2 (11:02→17:51)
--- NOTE | 2025-02-11 12:00 | PC.NURSE ---
Patient had right foot pump on upon arrival from surgery. Patient wore for approx 2 hours and stated it hurt the left leg. Caused shooting pains and requested for the foot pump to be removed.
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
[2025-02-11] MEDS: latanoprost 0.005% Op Soln 2.5 mL Btl 1 DROP OPHTHALMIC (17:51)
[2025-02-11] MEDS: budesonide 0.5 mg/2 mL Neb INHALATION (20:08)
[2025-02-12] VITALS (7 sets, daily range): BP systolic 110–150; BP diastolic 62–67; PULSE 60–79; RESP 16–18; TEMP 36.4–36.9; O2SAT 94–98
[2025-02-12] MEDS: ipratropium-albuterol 3 mL Neb INHALATION ×2 (03:15→08:49)
[2025-02-12 06:04] LABS: Eosinophils # 0.1 10^3/uL (0.0-0.8); Eosinophils % 0.7 %; Hematocrit 30.6 % (36-47); Lymphocytes # 1.7 10^3/uL (0.8-4.8); Lymphocytes % 17.4 %; Mean Corpuscular HGB Conc 29.7 g/dL (30-55); Mean Corpuscular Hemoglobin 30.6 pg (27-33); Mean Platelet Volume 9.2 fL (7.4-10.4); Monocytes # 0.5 10^3/uL (0.2-0.9); Monocytes % 4.9 %; Neutrophils # 7.62 10^3/uL (1.8-7.7); Neutrophils % 76.5 %; Nucleated Red Blood Cells % 0 %; Platelet Count 320 10^3/cmm (157-399); Red Blood Count 2.97 10^6/uL (3.85-5.65); Red Cell Distribution Width 14.5 % (12.1-15.1); White Blood Count 9.96 10^3/uL (3.29-11.43)
[2025-02-12 06:24] LABS: Alanine Aminotransferase 9 U/L (0-33); Albumin Level 3.1 g/dL (3.5-5.2); Alkaline Phosphatase 115 U/L (35-105); Anion Gap 6.7 (5-19); Aspartate Amino Transferase 10 U/L (0-32); Blood Urea Nitrogen 34 mg/dL (8-23); Calcium 7.9 mg/dL (8.5-10.5); Carbon Dioxide 40 mmol/L (22-29); Chloride 99 mmol/L (98-107); Creatinine Clr Calc Pharmacy 40.8813; Globulin 2.2 g/dL (1.3-4.6); Glucose 86 mg/dL (65-115); Osmolality Calculated 301 mOsm/kg (285-295); Potassium 3.7 mmol/L (3.5-5.1); Sodium 142 mmol/L (136-145); Total Bilirubin 0.2 mg/dL (0.15-1.2); Total Protein 5.3 g/dL (6.6-8.7)
[2025-02-12 06:26] LABS: C Reactive Protein 3.4 mg/L (0.0-4.9); Magnesium 2.3 mg/dL (1.7-2.3); NT Pro B Type Natriuretic Pept 1015 pg/mL (0-450); Procalcitonin 0.05 ng/mL (0-0.5)
--- NOTE | 2025-02-12 07:45 | P.PN_ITS ---
Subjective 2 Subjective: Took down dressings. Applied Santyl. Wrapped leg. Vitals/I&O/Wt Last Vital Signs Temp 98.5 F 02/12/25 04:00 Pulse 79 02/12/25 04:00 Resp 17 02/12/25 04:00 BP 124/62 02/12/25 04:00 Pulse Ox 96 02/12/25 04:00 O2 Del Method Nasal Cannula 02/12/25 04:00 O2 Flow Rate 2 02/12/25 04:00 FiO2 28 02/09/25 04:34 02/11/25 02/12/25 02/12/25 22:59 06:59 14:59 Intake Total 960.5 / 1300.5 Output Total 200 / 205 Balance 760.5 / 1095.5 Weight last 48 hrs Weight 106 lb 9.6 oz Weight 107 lb 3.2 oz Weight 107 lb 3.2 oz Physical Exam 2 Narrative: Chest: Unlabored breathing room air. No lymphadenopathy. Heart: Regular rate and rhythm. Abdomen: Soft, nontender, nondistended. No masses or lymphadenopathy. Left lower extremity: Chronic wound present. Took down dressings. Apply Santyl. Redressed left lower extremity Data 02/12/25 05:26 02/12/25 05:26 A&P Assessment and plan (1) Traumatic open wound of left lower leg: Plan 89-year-old female with a chronic left lower extremity wound. Redressed wound and applied Santyl. From a surgical perspective cleared for discharge. Can follow-up with wound care. In the meantime continue with daily Santyl and daily dressing changes. PDMP PDMP Reviewed: Not Reviewed Attestations 2 Medical Necessity Statement*: N/A Coding Level of Care Code 07193 Diagnoses Traumatic open wound of left lower leg, initial encounter S81.802A Encounter type: initial encounter
[2025-02-12] MEDS: budesonide 0.5 mg/2 mL Neb INHALATION (08:49)
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
[2025-02-12] MEDS: doxycycline 100 mg Tablet PO (10:18)
[2025-02-12] MEDS: collagenase oint 30 gm 1 APPLIC TOPICAL (10:18)
[2025-02-12] MEDS: predniSONE 20 mg Tablet 40 MG PO (10:18)
[2025-02-12] MEDS: amoxicillin-clav 875-125 mg Tablet 1 TAB PO (10:18)
[2025-02-12] MEDS: dorzolamide/timolol Op Soln 10 mL Btl 1 DROP EYE-BOTH (10:19)
[2025-02-12] MEDS: carvedilol 25 mg Tablet PO (10:19)
[2025-02-12] MEDS: lisinopril 20 mg Tablet PO (10:20)
[2025-02-12] MEDS: guaiFENesin 600 mg Tablet PO (10:20)
[2025-02-12 14:06] LABS: SARS Covid-2 Antigen Negative (Negative)
--- NOTE | 2025-02-12 15:42 | PC.NURSE ---
Called report to Chantal Grider RN. Sent medications with patient as well. Santyl plus two eye drops
== END 2025-02-12 15:00 | disposition skilled nursing facility (03) | DRG 166 ==
LOC: ER 02-06 00:09 → ER IP 02-06 00:11 → ICU 02-06 10:57 → MEDSURG 02-08 14:06
PROVIDERS: Student in an Organized Health Care Education/Training Program; Admitting Provider Internal Medicine; Emergency Provider Student in an Organized Health Care Education/Training Program; PCP Family Medicine; Visit Provider Family Medicine
PROC: 0JBR0ZZ Excision of Left Foot Subcutaneous Tissue and Fascia, Open Approach (ICD-10-PCS; principal; 2025-02-11 07:00)
DX: J96.22 Acute and chronic respiratory failure with hypercapnia (principal); G93.41 Metabolic encephalopathy; J69.0 Pneumonitis due to inhalation of food and vomit; M31.30 Wegener's granulomatosis without renal involvement; E87.3 Alkalosis; J44.1 Chronic obstructive pulmonary disease with (acute) exacerbation; J90 Pleural effusion, not elsewhere classified; J44.0 Chronic obstructive pulmonary disease with (acute) lower respiratory infection; I50.32 Chronic diastolic (congestive) heart failure; E44.0 Moderate protein-calorie malnutrition; Z68.1 Body mass index [BMI] 19.9 or less, adult; S81.802A Unspecified open wound, left lower leg, initial encounter; J84.10 Pulmonary fibrosis, unspecified; J47.9 Bronchiectasis, uncomplicated; J96.11 Chronic respiratory failure with hypoxia; F41.9 Anxiety disorder, unspecified; E87.5 Hyperkalemia; D53.9 Nutritional anemia, unspecified; D75.839 Thrombocytosis, unspecified; R73.9 Hyperglycemia, unspecified; R53.81 Other malaise; R80.9 Proteinuria, unspecified; R74.8 Abnormal levels of other serum enzymes; D72.829 Elevated white blood cell count, unspecified; I11.0 Hypertensive heart disease with heart failure; Z66 Do not resuscitate; V89.2XXA Person injured in unspecified motor-vehicle accident, traffic, initial encounter; Z79.899 Other long term (current) drug therapy; Z88.1 Allergy status to other antibiotic agents; Z88.2 Allergy status to sulfonamides
CPT/HCPCS: 32555; 36415; 36600; 70450; 71045; 71275; 73590; 73620; 74230; 80053; 80069; 80503; 81001; 82042; 82150; 82570; 82803; 82945; 83605; 83615; 83735; 83880; 83986; 84100; 84145; 84157; 84478; 84484; 85014; 85025; 85610; 85730; 86140; 87015; 87040; 87070; 87075; 87116; 87205; 87206; 87426; 87637; 87801; 88112; 88305; 89050; 92526; 92610; 92611; 93005; 93306; 93970; 94640; 94660; 94762; 96365; 96367; 96374; 96375; 96376; 97116; 97161; 97165; 97530; 99291; G0378; J0456; J0612; J0696; J1100; J1940; J2020; J2405; J2543; J2704; J2919; J3010; J7030; J7050; J7512; J7613; J7626; J9999

== ENCOUNTER → 2025-03-02 10:34 | Outpatient (BNVA) | payer MEDICARE, SELFPAY | PROVIDERS: PCP Family Medicine; Visit Provider Student in an Organized Health Care Education/Training Program | DX: Z09 Encounter for follow-up examination after completed treatment for conditions other than malignant neoplasm (principal) | CPT/HCPCS: 99203; 99213 ==

== ENCOUNTER → 2025-03-17 09:05 | Outpatient (BNVA) | payer MEDICARE, SELFPAY | PROVIDERS: PCP Family Medicine; Visit Provider Thoracic Surgery (Cardiothoracic Vascular Surgery) | DX: I96 Gangrene, not elsewhere classified (principal); S81.802A Unspecified open wound, left lower leg, initial encounter; V89.2XXA Person injured in unspecified motor-vehicle accident, traffic, initial encounter | CPT/HCPCS: 97597; 97605; 99203; A6237; A6250 ==

== ENCOUNTER → 2025-04-01 11:11 | Outpatient (BNVA) | payer MEDICARE, SELFPAY | PROVIDERS: PCP Family Medicine; Visit Provider Nurse Practitioner Family | DX: S81.802A Unspecified open wound, left lower leg, initial encounter (principal); B00.1 Herpesviral vesicular dermatitis; L72.0 Epidermal cyst; L82.1 Other seborrheic keratosis; D69.2 Other nonthrombocytopenic purpura; L81.4 Other melanin hyperpigmentation; Z08 Encounter for follow-up examination after completed treatment for malignant neoplasm; Z85.820 Personal history of malignant melanoma of skin; X58.XXXA Exposure to other specified factors, initial encounter | CPT/HCPCS: 99213 ==

== ENCOUNTER → 2025-04-08 12:59 | Outpatient (BNVA) | payer MEDICARE, SELFPAY | PROVIDERS: PCP Family Medicine | DX: L97.222 Non-pressure chronic ulcer of left calf with fat layer exposed (principal); S81.802A Unspecified open wound, left lower leg, initial encounter; X58.XXXA Exposure to other specified factors, initial encounter | CPT/HCPCS: 87070; 87077; 87186 ==

== ENCOUNTER → 2025-05-13 09:18 | Outpatient (BNVA) | payer MEDICARE, SELFPAY | PROVIDERS: PCP Family Medicine; Visit Provider Thoracic Surgery (Cardiothoracic Vascular Surgery) | DX: I96 Gangrene, not elsewhere classified (principal); L97.821 Non-pressure chronic ulcer of other part of left lower leg limited to breakdown of skin | CPT/HCPCS: 97597; 99203 ==

== ENCOUNTER → 2025-05-20 08:57 | Outpatient (BNVA) | payer MEDICARE, SELFPAY | PROVIDERS: PCP Family Medicine; Visit Provider Thoracic Surgery (Cardiothoracic Vascular Surgery) | DX: I96 Gangrene, not elsewhere classified (principal); L97.821 Non-pressure chronic ulcer of other part of left lower leg limited to breakdown of skin | CPT/HCPCS: 97597 ==

== ENCOUNTER 2025-05-27 09:26 | Outpatient (RCR) | payer MEDICARE, SELFPAY | END 2025-06-14 23:59 | disposition home or self-care (01) | LOC: SPT 09:26 | PROVIDERS: PCP Family Medicine; Visit Provider Family Medicine | DX: R53.1 Weakness (principal) | CPT/HCPCS: 97110; 97161 ==

== ENCOUNTER 2025-06-13 20:14 | Inpatient (IN) | payer MEDICARE, SELFPAY ==
[2025-06-13 20:17] VITALS: BP 118/58; PULSE 73; RESP 18; TEMP 36.7; O2SAT 93; BMI 18.8
--- NOTE | 2025-06-13 20:37 | XRR_ITS ---
PROCEDURE INFORMATION: Exam: XR Chest Exam date and time: 06/13/2025 8:37 PM Age: 89 years old Clinical indication: Shortness of breath; Additional info: Hypoxia TECHNIQUE: Imaging protocol: Radiologic exam of the chest. Views: 1 view. COMPARISON: CR XR chest 1V portable [id number] 02/10/2025 7:18 AM FINDINGS: Lungs: Probable hyperinflation. Chronic appearing strands and reticulation, nonspecific. Calcified granulomas. Pleural spaces: Probable small effusions or pleural thickening, [id number]. Heart/Mediastinum: Unremarkable. No cardiomegaly. Vasculature: Aortic atherosclerosis. Bones/joints: Unremarkable. XR/XR chest 1V portable [id number] IMPRESSION: Probable small effusions or pleural thickening, [id number].
[2025-06-13 20:56] LABS: Hematocrit 33.5 % (36-47); Hemoglobin 9.60 g/dL (11.27-16.99); Mean Corpuscular HGB Conc 28.7 g/dL (30-55); Mean Corpuscular Hemoglobin 29.8 pg (27-33); Mean Corpuscular Volume 104.0 fl (85-98); Nucleated Red Blood Cells % 0 %; Platelet Count 337 10^3/cmm (157-399); Red Blood Count 3.22 10^6/uL (3.85-5.65); White Blood Count 11.64 10^3/uL (3.29-11.43)
[2025-06-13] MEDS: FUROsemide 10 mg/mL SDV 4mL 40 MG IVP (21:01)
[2025-06-13 21:18] LABS: INR 0.93 (0.8-1.2); Prothrombin Time 13.10 SECONDS (12.1-14.9)
[2025-06-13 21:26] LABS: Lactic Sepsis W/Reflex 0.8 mmol/L (0.5-2.2)
[2025-06-13 21:38] LABS: Alanine Aminotransferase 10 U/L (0-33); Albumin Level 3.6 g/dL (3.5-5.2); Alkaline Phosphatase 73 U/L (35-105); Anion Gap 12.3 (5-19); Aspartate Amino Transferase 13 U/L (0-32); Blood Urea Nitrogen 44 mg/dL (8-23); Calcium 8.9 mg/dL (8.5-10.5); Carbon Dioxide 33 mmol/L (22-29); Chloride 110 mmol/L (98-107); Creatinine Clr Calc Pharmacy 36.7080; Globulin 3.6 g/dL (1.3-4.6); Glucose 101 mg/dL (65-115); Magnesium 2.4 mg/dL (1.7-2.3); NT Pro B Type Natriuretic Pept 3403 pg/mL (0-450); Osmolality Calculated 321 mOsm/kg (285-295); Potassium 5.3 mmol/L (3.5-5.1); Sodium 150 mmol/L (136-145); Total Protein 7.2 g/dL (6.6-8.7)
[2025-06-13 22:08] LABS: Glucose Urine UA Negative (Normal); Nitrate Urine Negative (Negative); Specific Gravity, Urine 1.010 (1.005-1.030)
--- NOTE | 2025-06-13 22:10 | W.ED.SOB ---
Documented by User: Everton Han MD 06/13/25 22:18 HPI - SOB/Dyspnea General: Chief Complaint: Shortness of Breath/Dyspnea Stated Complaint: SOB Gaspin o2 80s Time Seen by Provider: 06/13/25 20:36 Source: patient and family Mode of arrival: ambulatory Limitations: other (reported confusion from family. ) History of Present Illness: HPI Narrative: 89-year-old female comes in for shortness of breath. Is really been on hospice for recurrent pleural effusions with that is improved for the last few months. They are concerned with her increased shortness of breath and some confusion that she has developed hypercapnia which they called carbon dioxide poisoning. As well as increased pleural effusions that need draining again. Patient previously had to be on hospice care with a Pleurx catheter but after some treatment has been resolved since apparently October of this year. They deny any fever. Just increased confusion and shortness of breath the past 3 days. Patient used to be on Lasix but has been taken off that she had not been needing it. Related Data Home Medications ?Medication ?Instructions ?Recorded ?Confirmed latanoprost 0.005 % eye drops 1 drp ophthalmic (eye) QPM 05/09/22 05/14/25 ascorbic acid (vitamin C) 500 mg 500 mg PO DAILY 05/04/23 05/14/25 tablet (Vitamin C) cholecalciferol (vitamin D3) 25 25 mcg PO DAILY 05/04/23 05/14/25 mcg (1,000 unit) capsule (Vitamin D3) dorzolamide 22.3 mg-timolol 6.8 1 drp ophthalmic (eye) BID 05/04/23 05/14/25 mg/mL eye drops acetaminophen 500 mg tablet 500 mg PO Q6H PRN Pain 02/03/25 05/14/25 linezolid 600 mg tablet 600 mg PO BID 04/14/25 05/14/25 Previous Rx's ?Medication ?Instructions ?Recorded alprazolam 0.25 mg tablet 0.125 mg (1/2 x 0.25 mg) PO BID 04/28/25 PRN anxiety #30 tabs carvedilol 25 mg tablet 25 mg PO BID #180 tabs 05/14/25 fluticasone fur. 100 mcg-umeclid 1 inh inhalation DAILY #60 ea 05/14/25 62.5 mcg-vilant 25 mcg inhalat.powder (Trelegy Ellipta) lisinopril 20 mg tablet 20 mg PO BID #180 tabs 05/14/25 megestrol 400 mg/10 mL (10 mL) 200 mg (5 mL) PO BID #400 mL 05/14/25 oral suspension Allergies Allergy/AdvReac Type Severity Reaction Status Date / Time ciprofloxacin Allergy ALGY-Rash Verified 05/05/25 13:03 sulfamethoxazole (From Allergy ALGY-Rash Verified 05/05/25 13:03 Bactrim) trimethoprim (From Bactrim) Allergy ALGY-Rash Verified 05/05/25 13:03 Review of Systems General: Reports: ROS unobtainable due to mental status PFSH ED PFSH: Medical History (Updated 06/14/25 @ 00:26 by Jose Daniel Yang DO) Pulmonary fibrosis Diastolic CHF Pleural effusion Bronchiectasis Chronic hypoxic respiratory failure COPD (chronic obstructive pulmonary disease) Davi's granulomatosis Urrutia syndrome History of malignant melanoma Hypertension Cataract Surgical History H/O: hysterectomy H/O lumpectomy Family History Mother Diabetes Social History Smoking and tobacco/nicotine status: never used tobacco/nicotine Alcohol intake: never Housing: Retirement Marital status: Physical Exam Const: COMMON NORMALS: no acute distress, average body habitus, patient oriented x3, healthy appearing, alert and well nourished HENMT: COMMON NORMALS: normocephalic and atraumatic HEAD & SCALP: normocephalic and atraumatic Eye: COMMON NORMALS: EOMs intact bilaterally and conjunctivae normal CONJUNCTIVA: Yes conjunctivae normal Neck/C-Spine: COMMON NORMALS: full ROM, no lymphadenopathy, supple, no meningeal signs, Thyroid normal and No carotid bruits THYROID: Thyroid normal Lymph: LYMPHATIC: no lymphadenopathy noted Chest: COMMONS NORMALS: normal inspection of the chest Resp: COMMON NORMALS: No retractions and No use of accessory muscles AUSCULTATION: rales bilateral at the base and diminished lung sounds on the left (base) Cardio: COMMON NORMALS: regular rate, regular rhythm, S1 normal heart sound present, S2 normal heart sound present, No gallops present (Cardio), No clicks present (Cardio), No rub (Cardio) and Peripheral pulses 2+ throughout RATE: regular rate RHYTHM: regular rhythm HEART SOUNDS: S1 normal heart sound present and S2 normal heart sound present PERIPHERAL PULSES: Peripheral pulses 2+ throughout GI: COMMON NORMALS: Normal to inspection, nondistended, normoactive bowel sounds present : COMMON NORMALS: Yes no CVA tenderness and Yes normal external appearance BLADDER/KIDNEY EXAM: Yes no CVA tenderness Back/Pelvis: COMMON NORMALS: no CVA tenderness Extremity: COMMON NORMALS: normal to inspection, capillary refill normal and no clubbing, cyanosis or edema Neuro: COMMON NORMALS: patient oriented x3 SENSORIUM/ORIENTATION: Yes alert MENINGEAL SIGNS: Yes no meningeal signs Skin: COMMON NORMALS: no rashes or lesions noted GENERAL SKIN EXAM: no rashes or lesions noted Course ED course: Awaiting ABG to be performed. Urine has come back clean. Patient is in no distress satting appropriately on 2 L. Which is apparently her baseline. Patient has elevated BNP compared to previous times but also has hypernatremia with a sodium of 150 and mild hyperkalemia. She has hyperosmolar at this time but definitely has increased fluid on her lungs. Potassium level is 5.3. EKG is pending. Troponin is pending. BUN is elevated. Due to shift change patient will be handed off to Dr. Yang Vital Signs: Vital signs: Vital Signs Temperature 98.1 F 06/13/25 20:17 Pulse Rate 66 06/14/25 01:25 Respiratory Rate 17 06/14/25 01:25 Blood Pressure 152/83 06/14/25 01:25 Pulse Oximetry 95 06/14/25 01:25 Oxygen Delivery Me thod Nasal Cannula 06/13/25 20:17 Oxygen Flow Rate 2 06/13/25 20:17 MDM - SOB/Dyspnea Medical Decision Making Due to shift change, handing off patient to Dr. Yang. Medical Records I reviewed the patient's medical records. Lab Data I reviewed the patient's lab results. 06/13/25 20:50 06/13/25 20:50 Labs/Radiology: Radiology Impressions Chest X-Ray 06/13/25 20:37 IMPRESSION: Probable small effusions or pleural thickening, [id number]. Laboratory Results WBC 11.64 10^3/uL (3.29-11.43) H 06/13/25 20:50 RBC 3.22 10^6/uL (3.85-5.65) L 06/13/25 20:50 Hgb 9.60 g/dL (11.27-16.99) L 06/13/25 20:50 Hct 33.5 % (36-47) L 06/13/25 20:50 MCV 104.0 fl (85-98) H 06/13/25 20:50 MCH 29.8 pg (27-33) 06/13/25 20:50 MCHC 28.7 g/dL (30-55) L 06/13/25 20:50 RDW 17.2 % (12.1-15.1) H 06/13/25 20:50 Plt Count 337 10^3/cmm (157-399) 06/13/25 20:50 MPV 9.7 fL (7.4-10.4) 06/13/25 20:50 Neut % (Auto) 73.6 % 06/13/25 20:50 Lymph % (Auto) 17.1 % 06/13/25 20:50 Traill % (Auto) 6.8 % 06/13/25 20:50 Eos % (Auto) 1.7 % 06/13/25 20:50 Baso % (Auto) 0.3 % 06/13/25 20:50 Neut # (Auto) 8.56 10^3/uL (1.8-7.7) H 06/13/25 20:50 Lymph # (Auto) 2.0 10^3/uL (0.8-4.8) 06/13/25 20:50 Traill # (Auto) 0.8 10^3/uL (0.2-0.9) 06/13/25 20:50 Eos # (Auto) 0.2 10^3/uL (0.0-0.8) 06/13/25 20:50 Baso # (Auto) 0.0 10^3/uL (0.0-0.1) 06/13/25 20:50 Nucleated RBC % (auto) 0 % 06/13/25 20:50 Nucleated RBCs # 0.0 /100WBC 08/30/25 20:50 PT 13.10 SECONDS (12.1-14.9) 06/13/25 20:50 INR 0.93 (0.8-1.2) 06/13/25 20:50 Specimen Type Arterial 06/13/25 23:26 Sample Site Radial, right 06/13/25 23:26 ABG pH 7.38 (7.35-7.45) 06/13/25 23:26 ABG pCO2 63.1 mmHg (35-45) H* 06/13/25 23: ABG pO2 81.8 mmHg (80.0-100.0) 06/13/25 23: ABG HCO3 36.9 mmol/L (22-26) H 06/13/25 23: ABG Base Excess 10.1 mmol/L (-2.0-2.0) H 06/13/25 23:26 Wally Test Pos 06/13/25 23:26 Hematocrit 29.4 % (37-47) L 06/13/25 23:26 Hgb O2 Saturation 93.5 % (95-100) L 06/13/25 23:26 Carboxyhemoglobin 2.1 %THgb (0.4-20.1) 06/13/25 23:26 Methemoglobin 1.1 % (0.4-1.5) 06/13/25 23:26 Total Hemoglobin 9.6 g/dL (12-16) L 06/13/25 23:26 O2 Delivery Device Nc 06/13/25 23:26 O2 Liters/Min 2.0 % 06/13/25 23:26 Advertising Campaign Manager ID [email or web address] 06/13/25 23:26 Sodium 150 mmol/L (136-145) H 06/13/25 20:50 Potassium 5.3 mmol/L (3.5-5.1) H 06/13/25 20:50 Chloride 110 mmol/L (98-107) H 06/13/25 20:50 Carbon Dioxide 33 mmol/L (22-29) H 06/13/25 20:50 Anion Gap 12.3 (5-19) 06/13/25 20:50 BUN 44 mg/dL (8-23) H 06/13/25 20:50 Creatinine 0.9 mg/dL (0.5-0.9) 06/13/25 20:50 GFR Calculation Not Reportable 06/13/25 20:50 Glucose 101 mg/dL (65-115) 06/13/25 20:50 Calculated Osmolality 321 mOsm/kg (285-295) H 06/13/25 20:50 Lactic Acid 0.8 mmol/L (0.5-2.2) 06/13/25 20:50 Calcium 8.9 mg/dL (8.5-10.5) 06/13/25 20:50 Magnesium 2.4 mg/dL (1.7-2.3) H 06/13/25 20:50 Total Bilirubin 0.2 mg/dL (0.15-1.2) 06/13/25 20:50 AST 13 U/L (0-32) 06/13/25 20:50 ALT 10 U/L (0-33) 06/13/25 20:50 Alkaline Phosphatase 73 U/L (35-105) 06/13/25 20:50 Troponin T Baseline 26 ng/L (0-10) H 06/13/25 20:50 Troponin T 120 Minute 26.93 ng/L (0-10) H 06/14/25 01:30 Delta Troponin T 0.93 ABS# (0-10) 06/14/25 01:30 NT-Pro-B Natriuret Pep 3403 pg/mL (0-450) H 06/13/25 20:50 Total Protein 7.2 g/dL (6.6-8.7) 06/13/25 20:50 Albumin 3.6 g/dL (3.5-5.2) 06/13/25 20:50 Globulin 3.6 g/dL (1.3-4.6) 06/13/25 20:50 Urine Color Yellow (Yellow) 06/13/25 21:40 Urine Appearance Clear (CLEAR) 06/13/25 21:40 Urine pH 5.0 (5-7) 06/13/25 21:40 Ur Specific Cerrillos 1.010 (1.005-1.030) 06/13/25 21:40 Urine Protein Negative (Negative) 06/13/25 21:40 Urine Glucose (UA) Negative (Normal) 06/13/25 21:40 Urine Ketones Negative (Negative) 06/13/25 21:40 Urine Blood Negative (Negative) 06/13/25 21:40 Urine Nitrate Negative (Negative) 06/13/25 21:40 Urine Bilirubin Negative (Negative) 06/13/25 21:40 Urine Urobilinogen 0.2 mg/dL (Negative) 06/13/25 21:40 Ur Leukocyte Esterase Negative (Negative) 06/13/25 21:40 Urine RBC 0-2 /hpf (0-2) 06/13/25 21:40 Urine WBC 0-5 /hpf (0-5) 06/13/25 21:40 Ur Squamous Epith Cells 0-5 /hpf (0-5) 06/13/25 21:40 Amorphous Sediment Not Reportable 06/13/25 21:40 Urine Bacteria None seen /hpf (NONE) 06/13/25 21:40 Hyaline Casts 1.21 /lpf 06/13/25 21:40 All radiology interpretation(s) finalized by discharge ED provider radiology interpretation(s): X-ray shows small pleural effusions bilaterally otherwise unremarkable. Discharge Plan Discharge Patient Disposition: Admitted As Inpatient Clinical Impression: Acute on chronic hypoxic respiratory failure, CHF exacerbation, Acute hypernatremia, Acute hyperkalemia Condition: Fair Coding Level of Care Code ED Meat Market Manager for Chg Fwd Documented by User: Jose Daniel Yang DO 06/14/25 02:13 HPI - SOB/Dyspnea General: Chief Complaint: Shortness of Breath/Dyspnea Stated Complaint: SOB Gaspin o2 80s Time Seen by Provider: 06/13/25 20:36 Related Data Home Medications ?Medication ?Instructions ?Recorded ?Confirmed latanoprost 0.005 % eye drops 1 drp ophthalmic (eye) QPM 05/09/22 05/14/25 ascorbic acid (vitamin C) 500 mg 500 mg PO DAILY 05/04/23 05/14/25 tablet (Vitamin C) cholecalciferol (vitamin D3) 25 25 mcg PO DAILY 05/04/23 05/14/25 mcg (1,000 unit) capsule (Vitamin D3) dorzolamide 22.3 mg-timolol 6.8 1 drp ophthalmic (eye) BID 05/04/23 05/14/25 mg/mL eye drops acetaminophen 500 mg tablet 500 mg PO Q6H PRN Pain 02/03/25 05/14/25 linezolid 600 mg tablet 600 mg PO BID 04/14/25 05/14/25 Previous Rx's ?Medication ?Instructions ?Recorded alprazolam 0.25 mg tablet 0.125 mg (1/2 x 0.25 mg) PO BID 04/28/25 PRN anxiety #30 tabs carvedilol 25 mg tablet 25 mg PO BID #180 tabs 05/14/25 fluticasone fur. 100 mcg-umeclid 1 inh inhalation DAILY #60 ea 05/14/25 62.5 mcg-vilant 25 mcg inhalat.powder (Trelegy Ellipta) lisinopril 20 mg tablet 20 mg PO BID #180 tabs 05/14/25 megestrol 400 mg/10 mL (10 mL) 200 mg (5 mL) PO BID #400 mL 05/14/25 oral suspension Allergies Allergy/AdvReac Type Severity Reaction Status Date / Time ciprofloxacin Allergy ALGY-Rash Verified 05/05/25 13:03 sulfamethoxazole (From Allergy ALGY-Rash Verified 05/05/25 13:03 Bactrim) trimethoprim (From Bactrim) Allergy ALGY-Rash Verified 05/05/25 13:03 PFSH ED PFSH: Medical History (Updated 06/14/25 @ 00:26 by Jose Daniel Yang DO) Pulmonary fibrosis Diastolic CHF Pleural effusion Bronchiectasis Chronic hypoxic respiratory failure COPD (chronic obstructive pulmonary disease) Davi's granulomatosis Urrutia syndrome History of malignant melanoma Hypertension Cataract Surgical History H/O: hysterectomy H/O lumpectomy Family History Mother Diabetes Social History Smoking and tobacco/nicotine status: never used tobacco/nicotine Alcohol intake: never Housing: Retirement Marital status: Course Vital Signs: Vital signs: Vital Signs Temperature 98.1 F 06/13/25 20:17 Pulse Rate 66 06/14/25 01:25 Respiratory Rate 17 06/14/25 01:25 Blood Pressure 152/83 06/14/25 01:25 Pulse Oximetry 95 06/14/25 01:25 Oxygen Delivery Me thod Nasal Cannula 06/13/25 20:17 Oxygen Flow Rate 2 06/13/25 20:17 MDM - SOB/Dyspnea Medical Decision Making Due to shift change, handing off patient to Dr. Yang. Received in checkout from the previous physician. This lady was short of breath, with some mental status changes. Vitals have been stable here. She is on oxygen. She is afebrile. White blood cell count is 11.6. Hemoglobin is 9.6. Chest x-ray shows small pleural effusions present bilaterally. Her BNP is 3400, which is up from 1000 on her last draw. Troponin is 26, but did not change significantly at 2 hours. Sodium is 150, potassium is 5.3. She is given IV Lasix here. Her lactic acid is negative. With electrolyte abnormalities, and giving Lasix, indices can either improve or worsen. She will require admission. Hospitalist has been contacted. Lab Data 06/13/25 20:50 06/13/25 20:50 Labs/Radiology: Radiology Impressions Chest X-Ray 06/13/25 20:37 IMPRESSION: Probable small effusions or pleural thickening, [id number]-right. Laboratory Results WBC 11.64 10^3/uL (3.29-11.43) H 06/13/25 20:50 RBC 3.22 10^6/uL (3.85-5.65) L 06/13/25 20:50 Hgb 9.60 g/dL (11.27-16.99) L 06/13/25 20:50 Hct 33.5 % (36-47) L 06/13/25 20:50 MCV 104.0 fl (85-98) H 06/13/25 20:50 MCH 29.8 pg (27-33) 06/13/25 20:50 MCHC 28.7 g/dL (30-55) L 06/13/25 20:50 RDW 17.2 % (12.1-15.1) H 06/13/25 20:50 Plt Count 337 10^3/cmm (157-399) 06/13/25 20:50 MPV 9.7 fL (7.4-10.4) 06/13/25 20:50 Neut % (Auto) 73.6 % 06/13/25 20:50 Lymph % (Auto) 17.1 % 06/13/25 20:50 Traill % (Auto) 6.8 % 06/13/25 20:50 Eos % (Auto) 1.7 % 06/13/25 20:50 Baso % (Auto) 0.3 % 06/13/25 20:50 Neut # (Auto) 8.56 10^3/uL (1.8-7.7) H 06/13/25 20:50 Lymph # (Auto) 2.0 10^3/uL (0.8-4.8) 06/13/25 20:50 Traill # (Auto) 0.8 10^3/uL (0.2-0.9) 06/13/25 20:50 Eos # (Auto) 0.2 10^3/uL (0.0-0.8) 06/13/25 20:50 Baso # (Auto) 0.0 10^3/uL (0.0-0.1) 06/13/25 20:50 Nucleated RBC % (auto) 0 % 06/13/25 20:50 Nucleated RBCs # 0.0 /100WBC 06/13/25 20:50 PT 13.10 SECONDS (12.1-14.9) 06/13/25 20:50 INR 0.93 (0.8-1.2) 06/13/25 20:50 Specimen Type Arterial 06/13/25 23:26 Sample Site Radial, right 06/13/25 23:26 ABG pH 7.38 (7.35-7.45) 06/13/25 23:26 ABG pCO2 63.1 mmHg (35-45) H* 06/13/25 23: ABG pO2 81.8 mmHg (80.0-100.0) 06/13/25 23: ABG HCO3 36.9 mmol/L (22-26) H 06/13/25 23:26 ABG Base Excess 10.1 mmol/L (-2.0-2.0) H 06/13/25 23:26 Wally Test Pos 06/13/25 23:26 Hematocrit 29.4 % (37-47) L 06/13/25 23:26 Hgb O2 Saturation 93.5 % (95-100) L 06/13/25 23: Carboxyhemoglobin 2.1 %THgb (0.4-20.1) 06/13/25 23: Methemoglobin 1.1 % (0.4-1.5) 06/13/25 23:26 Total Hemoglobin 9.6 g/dL (12-16) L 06/13/25 23: O2 Delivery Device Nc 06/13/25 23:26 O2 Liters/Min 2.0 % 06/13/25 23:26 Advertising Campaign Manager ID [email or web address] 06/13/25 23:26 Sodium 150 mmol/L (136-145) H 06/13/25 20:50 Potassium 5.3 mmol/L (3.5-5.1) H 06/13/25 20:50 Chloride 110 mmol/L (98-107) H 06/13/25 20:50 Carbon Dioxide 33 mmol/L (22-29) H 06/13/25 20:50 Anion Gap 12.3 (5-19) 06/13/25 20:50 BUN 44 mg/dL (8-23) H 06/13/25 20:50 Creatinine 0.9 mg/dL (0.5-0.9) 06/13/25 20:50 GFR Calculation Not Reportable 06/13/25 20:50 Glucose 101 mg/dL (65-115) 06/13/25 20:50 Calculated Osmolality 321 mOsm/kg (285-295) H 06/13/25 20:50 Lactic Acid 0.8 mmol/L (0.5-2.2) 06/13/25 20:50 Calcium 8.9 mg/dL (8.5-10.5) 06/13/25 20:50 Magnesium 2.4 mg/dL (1.7-2.3) H 06/13/25 20:50 Total Bilirubin 0.2 mg/dL (0.15-1.2) 06/13/25 20:50 AST 13 U/L (0-32) 06/13/25 20:50 ALT 10 U/L (0-33) 06/13/25 20:50 Alkaline Phosphatase 73 U/L (35-105) 06/13/25 20:50 Troponin T Baseline 26 ng/L (0-10) H 06/13/25 20:50 Troponin T 120 Minute 26.93 ng/L (0-10) H 06/14/25 01:30 Delta Troponin T 0.93 ABS# (0-10) 06/14/25 01:30 NT-Pro-B Natriuret Pep 3403 pg/mL (0-450) H 06/13/25 20:50 Total Protein 7.2 g/dL (6.6-8.7) 06/13/25 20:50 Albumin 3.6 g/dL (3.5-5.2) 06/13/25 20:50 Globulin 3.6 g/dL (1.3-4.6) 06/13/25 20:50 Urine Color Yellow (Yellow) 06/13/25 21:40 Urine Appearance Clear (CLEAR) 06/13/25 21:40 Urine pH 5.0 (5-7) 06/13/25 21:40 Ur Specific Cerrillos 1.010 (1.005-1.030) 06/13/25 21:40 Urine Protein Negative (Negative) 06/13/25 21:40 Urine Glucose (UA) Negative (Normal) 06/13/25 21:40 Urine Ketones Negative (Negative) 06/13/25 21:40 Urine Blood Negative (Negative) 06/13/25 21:40 Urine Nitrate Negative (Negative) 06/13/25 21:40 Urine Bilirubin Negative (Negative) 06/13/25 21:40 Urine Urobilinogen 0.2 mg/dL (Negative) 06/13/25 21:40 Ur Leukocyte Esterase Negative (Negative) 06/13/25 21:40 Urine RBC 0-2 /hpf (0-2) 06/13/25 21:40 Urine WBC 0-5 /hpf (0-5) 06/13/25 21:40 Ur Squamous Epith Cells 0-5 /hpf (0-5) 06/13/25 21:40 Amorphous Sediment Not Reportable 06/13/25 21:40 Urine Bacteria None seen /hpf (NONE) 06/13/25 21:40 Hyaline Casts 1.21 /lpf 06/13/25 21:40 Discharge Plan Discharge Patient Disposition: Admitted As Inpatient Clinical Impression: Acute on chronic hypoxic respiratory failure, CHF exacerbation, Acute hypernatremia, Acute hyperkalemia Condition: Fair Coding Level of Care Code ED Meat Market Manager for Bella Hammer
[2025-06-13 22:13] LABS: Add Urine Microscopic? YES
[2025-06-13 22:16] VITALS: BMI 18.7
--- NOTE | 2025-06-13 22:16 | ECG_ITS ---
[facility] Test Date: 2025-06-13 Pat Name: Germaine Glavez Department: Room: Gender: Female Meat Dresser: : 1935 Requested By: Everton Han Order Number: [id number] Ferrara MD: Nathaniel Vivas M.D. Measurements Intervals [place] Rate: 63 P: 76 MS: 122 QRS: -37 QRSD: 68 T: 52 QT: 350 QTc: 359 Interpretive Statements SINUS RHYTHM POSSIBLE LEFT ATRIAL ENLARGEMENT [-0.1mV P-WAVE IN V1/V2] LEFT AXIS DEVIATION [QRS AXIS < -30] Compared to ECG 02/06/2025 14:29:39 NO CHANGE Electronically Signed On 06-14-2025 22:09:01 CDT by Nathaniel Vivas M.D. [email or web address]
[2025-06-13 23:10] LABS: Troponin(5th) Baseline 26 ng/L (0-10)
[2025-06-13 23:37] LABS: ABG PCO2 63.1 mmHg (35-45); ABG PH Result 7.38 (7.35-7.45); Arterial Blood Gas Hematocrit 29.4 % (37-47); Blood Gas Allen Test Pos; Blood Gas LPM 2.0 %; Blood Gas Sample Site Radial, right; Blood Gas Sample Type Arterial; Carboxyhemoglobin 2.1 %THgb (0.4-20.1); HCO3 ABG 36.9 mmol/L (22-26); Methemoglobin 1.1 % (0.4-1.5); PO2 ABG 81.8 mmHg (80.0-100.0)
[2025-06-14] VITALS (11 sets, daily range): BP systolic 123–171; BP diastolic 56–83; PULSE 58–84; RESP 16–26; TEMP 36.7–37.3; O2SAT 90–100
[2025-06-14 02:00] LABS: Troponin 5 2HR 26.93 ng/L (0-10); Troponin 5 2HR Delta 0.93 ABS# (0-10)
--- NOTE | 2025-06-14 02:32 | PM.HP ---
Providers/Chief Complaint Admitting Physician: MARY MAC DO Primary Care Provider: Chet Stallings MD Chief Complaint: SOB Gasping o2 80s History of Present Illness Germaine Galvez is a 89 year old female medical history significant for COPD presenting to the emergency room complaining of shortness of breath. ABG obtained in the emergency room were significant for hypercapnic respiratory failure pH 7.38 and PCO2 is 63.1. Serum sodium 150 chloride 110 BUN 44 creatinine 0.9, serum chemistry depicks dehydration significant for high serum osmolarity with a proBNP of 3400 with an EF showing diastolic dysfunction at 60. Will start very gentle hydration with half-normal saline at 100/h and monitor. Review of Systems Narrative: System review upon 10 organ review we are noted to be respiratory system with shortness of breath Medications/Allergies Home Medications ?Medication ?Instructions ?Recorded ?Confirmed ?Last Taken ?Type latanoprost 0.005 % eye drops 1 drp ophthalmic (eye) QPM 05/09/22 05/14/25 02/04/25 History ascorbic acid (vitamin C) 500 mg 500 mg PO DAILY 05/04/23 05/14/25 02/04/25 History tablet (Vitamin C) cholecalciferol (vitamin D3) 25 25 mcg PO DAILY 05/04/23 05/14/25 02/04/25 History mcg (1,000 unit) capsule (Vitamin D3) dorzolamide 22.3 mg-timolol 6.8 1 drp ophthalmic (eye) BID 05/04/23 05/14/25 02/04/25 History mg/mL eye drops acetaminophen 500 mg tablet 500 mg PO Q6H PRN Pain 02/03/25 05/14/25 02/03/25 History linezolid 600 mg tablet 600 mg PO BID 04/14/25 05/14/25 Unknown History alprazolam 0.25 mg tablet 0.125 mg (1/2 x 0.25 mg) PO BID 04/28/25 05/14/25 Unknown Rx PRN anxiety #30 tabs carvedilol 25 mg tablet 25 mg PO BID #180 tabs 05/14/25 05/14/25 Unknown Rx fluticasone fur. 100 mcg-umeclid 1 inh inhalation DAILY #60 ea 05/14/25 05/14/25 Unknown Rx 62.5 mcg-vilant 25 mcg inhalat.powder (Trelegy Ellipta) lisinopril 20 mg tablet 20 mg PO BID #180 tabs 05/14/25 05/14/25 Unknown Rx megestrol 400 mg/10 mL (10 mL) 200 mg (5 mL) PO BID #400 mL 05/14/25 05/14/25 Unknown Rx oral suspension Allergies Allergy/AdvReac Type Severity Reaction Status Date / Time ciprofloxacin Allergy ALGY-Rash Verified 05/05/25 13:03 sulfamethoxazole (From Allergy ALGY-Rash Verified 05/05/25 13:03 Bactrim) trimethoprim (From Bactrim) Allergy ALGY-Rash Verified 05/05/25 13:03 PFSH Acute PFSH: Medical History Pulmonary fibrosis Diastolic CHF Pleural effusion Bronchiectasis Chronic hypoxic respiratory failure COPD (chronic obstructive pulmonary disease) Davi's granulomatosis Urrutia syndrome History of malignant melanoma Hypertension Cataract Surgical History H/O: hysterectomy H/O lumpectomy Family History Mother Diabetes Social History Smoking and tobacco/nicotine status: never used tobacco/nicotine Alcohol intake: never Housing: Jail Marital status: Vitals/I&O/Wt Last Vital Signs Temp 98.1 F 06/13/25 20:17 Pulse 66 06/14/25 01:25 Resp 17 06/14/25 01:25 BP 152/83 06/14/25 01:25 Pulse Ox 95 06/14/25 01:25 O2 Del Method Nasal Cannula 06/13/25 20:17 O2 Flow Rate 2 06/13/25 20:17 06/13/25 06/13/25 06/14/25 14:59 22:59 06:59 Output Total 600 / 600 950 / 1550 Balance -600 / -600 -950 / -1550 Weight last 48 hrs Weight 49.952 kg Physical Exam Narrative: Generally patient looks well in no apparent distress with concerns about the placed to drink water. Patient feels dehydrated. She is essentially dry with dry lips always trying to with the amount HEENT normocephalic/atraumatic neck neck is supple cardiovascular heart rate is regular lungs are pretty much clear abdomen soft nontender nondistended unremarkable extremities intact no edema has good pulses neurology has no focality lab studies lab studies reviewed and noted. Data 06/14/25 04:25 06/13/25 20:50 A&P Assessment and plan 1. Acute hyperkalemia: 2. Dehydration: 3. Acute on chronic hypoxic respiratory failure: 4. COPD (chronic obstructive pulmonary disease): 5. Pleural effusion: 6. History of malignant melanoma: Plan: #1 Hypernatremia - Gentle hydration of half-normal saline at this time - Patient with elevated BNP likely secondary to underlining COPD - Serial chemistry to monitor lab studies in progress #2 High osmolarity/hypochloremia/elevated BUN and creatinine ratio all signifies dehydration -Continue rehydration and check serial chemistry and continue to optimize accordingly #3 Elevated proBNP in the setting of COPD and normal chest x-ray -Continue to monitor #4 Hyperkalemia - Will not give anything to decrease a potassium of 5.3 in the setting of IV infusion but this will normalize too #5 History of malignant melanoma with bilateral pleural effusion now to a minimum - Patient got treated with pleural VAC - Done remarkably well off of hospice #6 GI and DVT prophylaxis in place PDMP PDMP Reviewed: Last Reviewed 06/14/25 03:25 by Mary Mac MD Attestations Medical Necessity Statement*: Patient dry with multiple electrolyte imbalance requires 2 midnights for optimization of care. Patient meets inpatient criteria Coding Level of Care Code 34360 Diagnoses Acute hyperkalemia E87.5 Dehydration E86.0 Acute on chronic hypoxic respiratory failure J96.21 COPD (chronic obstructive pulmonary disease) J44.9 Pleural effusion J90 History of malignant melanoma Z85.820 Time Spent (min) 60
[2025-06-14 04:36] LABS: Hematocrit 34.8 % (36-47); Hemoglobin 10.10 g/dL (11.27-16.99); Mean Corpuscular HGB Conc 29.0 g/dL (30-55); Mean Corpuscular Hemoglobin 29.7 pg (27-33); Mean Corpuscular Volume 102.4 fl (85-98); Nucleated Red Blood Cells % 0 %; Platelet Count 359 10^3/cmm (157-399); Red Blood Count 3.40 10^6/uL (3.85-5.65); White Blood Count 10.77 10^3/uL (3.29-11.43)
[2025-06-14 05:01] LABS: Magnesium 2.2 mg/dL (1.7-2.3); Thyroid Stimulating Hormone 3.30 uIU/mL (0.27-4.20)
[2025-06-14 05:26] LABS: Estmated Average Glucose 105; Hemoglobin A1C 5.3 % (4.0-6.0)
[2025-06-14 09:23] LABS: Hematocrit 34.0 % (36-47); Hemoglobin 9.80 g/dL (11.27-16.99); Mean Corpuscular HGB Conc 28.8 g/dL (30-55); Mean Corpuscular Hemoglobin 29.8 pg (27-33); Mean Corpuscular Volume 103.3 fl (85-98); Nucleated Red Blood Cells % 0 %; Platelet Count 336 10^3/cmm (157-399); Red Blood Count 3.29 10^6/uL (3.85-5.65); White Blood Count 11.48 10^3/uL (3.29-11.43)
[2025-06-14 09:45] LABS: Alanine Aminotransferase 9 U/L (0-33); Albumin Level 3.4 g/dL (3.5-5.2); Alkaline Phosphatase 69 U/L (35-105); Anion Gap 9.2 (5-19); Aspartate Amino Transferase 13 U/L (0-32); Blood Urea Nitrogen 40 mg/dL (8-23); Calcium 8.7 mg/dL (8.5-10.5); Carbon Dioxide 38 mmol/L (22-29); Chloride 100 mmol/L (98-107); Creatinine Clr Calc Pharmacy 36.6921; Globulin 3.2 g/dL (1.3-4.6); Glucose 181 mg/dL (65-115); Osmolality Calculated 310 mOsm/kg (285-295); Potassium 4.2 mmol/L (3.5-5.1); Sodium 143 mmol/L (136-145); Total Protein 6.6 g/dL (6.6-8.7)
[2025-06-14 10:00] LABS: Vitamin B12 388 pg/mL (232-1245)
--- NOTE | 2025-06-14 10:34 | PC.PHAR ---
Patient has picked up a prescription for Furosemide 20 fill 05/12/25 30days , daughterin law states Dr. Stallings told her to stopp it the first week in May . [facility] also [facility] also had patient stop, stated by daughter in law.
[2025-06-14] MEDS: cefTRIAXone 1,000 mg SDV 1000 MG IVP (20:18)
[2025-06-15] VITALS (12 sets, daily range): BP systolic 125–159; BP diastolic 55–74; PULSE 55–86; RESP 16–20; TEMP 36.4–37.1; O2SAT 92–95
[2025-06-15 00:04] LABS: Procalcitonin 0.06 ng/mL (0-0.5)
[2025-06-15 00:36] LABS: Iron 41 ug/dL (37-145); Total Iron Binding Capacity 254 mcg/dl; Unsaturated Iron Binding 213 ug/dL (112-347)
[2025-06-15 00:51] LABS: Vitamin B12 343 pg/mL (232-1245)
[2025-06-15 03:21] LABS: Hematocrit 31.8 % (36-47); Hemoglobin 9.10 g/dL (11.27-16.99); Mean Corpuscular HGB Conc 28.6 g/dL (30-55); Mean Corpuscular Hemoglobin 29.4 pg (27-33); Mean Corpuscular Volume 102.6 fl (85-98); Nucleated Red Blood Cells % 0 %; Platelet Count 353 10^3/cmm (157-399); Red Blood Count 3.10 10^6/uL (3.85-5.65); White Blood Count 11.98 10^3/uL (3.29-11.43)
[2025-06-15 03:52] LABS: Cholesterol 152 mg/dL (0-200); HDL Cholesterol 35 mg/dL (60-100); Magnesium 2.2 mg/dL (1.7-2.3); Triglycerides 57 mg/dL (0-150); VLDL Cholestrol Calculation 11 mg/dL (0-30)
[2025-06-15 03:58] LABS: Alanine Aminotransferase 9 U/L (0-33); Albumin Level 3.2 g/dL (3.5-5.2); Alkaline Phosphatase 65 U/L (35-105); Anion Gap 9.1 (5-19); Aspartate Amino Transferase 13 U/L (0-32); Blood Urea Nitrogen 42 mg/dL (8-23); Calcium 8.4 mg/dL (8.5-10.5); Carbon Dioxide 38 mmol/L (22-29); Chloride 105 mmol/L (98-107); Globulin 2.9 g/dL (1.3-4.6); Glucose 90 mg/dL (65-115); Osmolality Calculated 314 mOsm/kg (285-295); Potassium 5.1 mmol/L (3.5-5.1); Sodium 147 mmol/L (136-145); Total Protein 6.1 g/dL (6.6-8.7)
[2025-06-15 04:06] LABS: Creatinine Clr Calc Pharmacy 32.5689
--- NOTE | 2025-06-15 07:54 | PC.SOCIAL ---
IMM Update Pg 2 of IMM Updated. Copy provided at bedside.
[2025-06-15] MEDS: dextrose 5%-sod chloride 0.45% 1,000 ML 50 ML IV (12:06)
[2025-06-15] MEDS: MEROPENEM 2,000 MG in sodium chloride 0.9% (plus) 50 ML 100 MG IV (12:37)
--- NOTE | 2025-06-15 14:10 | P.PN_ITS ---
Subjective 2 Subjective: Hospital course, labs appreciated. Seen with family at bedside. Patient is awake and alert. Denies any nausea, vomiting, headache. Complaining of chronic dyspnea on exertion. Vitals/I&O/Wt Last Vital Signs Temp 98.7 F 06/15/25 11:18 Pulse 82 06/15/25 11:18 Resp 16 06/15/25 11:18 BP 129/63 06/15/25 11:18 Pulse Ox 93 06/15/25 11:18 O2 Del Method Nasal Cannula 06/15/25 11:18 O2 Flow Rate 2 06/15/25 08:00 06/14/25 06/15/25 06/15/25 22:59 06:59 14:59 Intake Total 240 / 1720.000 805.833 / 805.833 Output Total 500 / 1000 300 / 1300 600 / 600 Balance -260 / 720.000 -300 / 420.000 205.833 / 205.833 Weight last 48 hrs Weight 48.081 kg Weight 49.895 kg Weight 49.442 kg Weight 49.952 kg Data 06/15/25 02:14 06/15/25 02:14 Micro: Microbiology 06/14/25 19:33 Blood Culture - Preliminary Blood SPECIMEN COLLECTED 06/14/25 19:34 Blood Culture - Preliminary Blood SPECIMEN COLLECTED A&P Assessment and plan 1. Acute hyperkalemia: 2. Dehydration: 3. Acute on chronic hypoxic respiratory failure: 4. COPD (chronic obstructive pulmonary disease): 5. Pleural effusion: 6. Pulmonary fibrosis: 7. Dysphagia: 8. 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 History of malignant melanoma: 11. Hypernatremia: Plan: Hypernatremia and hyperkalemia on admission: Hyperkalemia resolved. Patient having recurrent hyponatremia. Most likely static of dehydration due to poor oral intake of liquid. Patient was recently transition to thicken fluids because of dysphagia since then oral intake have decreased. Encourage patient for increased oral intake of fluid up to 50 ounces daily. Start on D5 half NS at 50 cc/h for 1000 cc Repeat BMP in afternoon. Dyspnea on exertion/acute on chronic hypoxic respiratory failure/pulmonary fibrosis/COPD exacerbation: Oxygen supplementation keeping saturation over 88%. Appreciate chest x-ray with similar looking bilateral pleural effusion. No concern for pneumonia for now. Patient has a history of Pseudomonas pneumonia. Complaining of increased expectoration recently. Continue with home dose of Mucinex. Sputum culture. For now start on IV meropenem 2 g every 12 hourly. Will transition to oral antibiotics for 1 week on discharge. Physical therapy evaluation. Discharge plan: Patient states she lives with an elderly . Stating having increased difficulty in breathing on exertion recently. Requesting transition to SNF versus assisted living. Discharge to SNF. Case management alerted. Hypertension: Goal blood pressure less than 140/90 mmhg. Continue with home dose of lisinopril. Holding off on home dose of Coreg. Protonix for PUD prophylaxis Cardiac diet. Switch to thickened liquids given concerns for chronic dysphagia. Heparin 5000 every 12 hourly for DVT prophylaxis CODE STATUS: Discussed in detail with patient and family at bedside. DNR/DNI PDMP PDMP Reviewed: Not Reviewed Attestations 2 Medical Necessity Statement*: Requires further hospitalization for management of dehydration leading to hypernatremia and hyperkalemia while safe discharge planning is sought in setting of dyspnea on exertion due to pulmonary fibrosis Diagnoses Acute hyperkalemia E87.5 Dehydration E86.0 Acute on chronic hypoxic respiratory failure J96.21 COPD (chronic obstructive pulmonary disease) J44.9 Pleural effusion J90 Pulmonary fibrosis J84.10 Dysphagia R13.10 Dyspnea on exertion R06.09 Urrutia syndrome H35.51 History of malignant melanoma Z85.820 Hypernatremia E87.0
[2025-06-15] MEDS: heparin 5,000 unit/mL INJ 1 mL 5000 UNIT SUBCUT (14:36)
[2025-06-15 15:45] LABS: Anion Gap 12.1 (5-19); Blood Urea Nitrogen 38 mg/dL (8-23); Calcium 8.7 mg/dL (8.5-10.5); Carbon Dioxide 36 mmol/L (22-29); Chloride 96 mmol/L (98-107); Creatinine Clr Calc Pharmacy 36.1877; Glucose 142 mg/dL (65-115); Osmolality Calculated 299 mOsm/kg (285-295); Potassium 5.1 mmol/L (3.5-5.1); Sodium 139 mmol/L (136-145)
[2025-06-16] VITALS (12 sets, daily range): BP systolic 137–160; BP diastolic 64–72; PULSE 73–92; RESP 16–18; TEMP 36.8–37.4; O2SAT 91–97
[2025-06-16] MEDS: MEROPENEM 2,000 MG in sodium chloride 0.9% (plus) 50 ML 100 MG IV ×2 (01:19→12:08)
[2025-06-16] MEDS: heparin 5,000 unit/mL INJ 1 mL 5000 UNIT SUBCUT ×2 (02:04→14:04)
[2025-06-16 03:15] LABS: Hematocrit 31.4 % (36-47); Hemoglobin 9.20 g/dL (11.27-16.99); Mean Corpuscular HGB Conc 29.3 g/dL (30-55); Mean Corpuscular Hemoglobin 29.7 pg (27-33); Mean Corpuscular Volume 101.3 fl (85-98); Nucleated Red Blood Cells % 0 %; Platelet Count 356 10^3/cmm (157-399); Red Blood Count 3.10 10^6/uL (3.85-5.65); White Blood Count 11.81 10^3/uL (3.29-11.43)
[2025-06-16 03:53] LABS: Magnesium 2.3 mg/dL (1.7-2.3)
[2025-06-16 03:59] LABS: Alanine Aminotransferase 7 U/L (0-33); Albumin Level 3.2 g/dL (3.5-5.2); Alkaline Phosphatase 66 U/L (35-105); Anion Gap 11.3 (5-19); Aspartate Amino Transferase 12 U/L (0-32); Blood Urea Nitrogen 31 mg/dL (8-23); Calcium 8.0 mg/dL (8.5-10.5); Carbon Dioxide 34 mmol/L (22-29); Chloride 101 mmol/L (98-107); Creatinine Clr Calc Pharmacy 36.1877; Globulin 2.5 g/dL (1.3-4.6); Glucose 130 mg/dL (65-115); Osmolality Calculated 300 mOsm/kg (285-295); Potassium 5.3 mmol/L (3.5-5.1); Sodium 141 mmol/L (136-145); Total Protein 5.7 g/dL (6.6-8.7)
--- NOTE | 2025-06-16 09:05 | PC.CHAP ---
Pastoral Care Encounter/Spiritual Assessment Type of Contact [] Declined interior systems carpenter visit [] Patient/Family/Request visit [] Outpatient visit [] Follow-up visit [] Physician referral [] Code/Alert [] Routine visit [] Staff referral [] Actively dying [] Patient sleeping [] Family support [] [] Out of room [] Palliative care [] [x] Receiving care in room [] Pre-surgical visit [] Trauma [] Long length of stay [] ICU visit [] Other: Relational/Emotional Strength [] Patient feels connected with others/family/visitors/staff [] Distress [] Loneliness/isolation [] Abandonment Spirituality of Patient [] Person of Mary [] Attends Bahai of their Mary [] Believes in Prayer [] Reads Bible or Hoahaoism materials [] There are Spiritual issues to be addressed Lcac Radar Operator/Navigator Interventions [] Prayer [] Active listening [] Non-anxious presence [] Spiritual/emotional support [] Crisis/trauma care [] Spiritual counseling [] Bereavement support [] Provided bereavement packet [] Provided Bible/devotional materials [] Provided toy/stuffed animal, coloring book to patient or family member [] Provided Communion [] Anointing/[place] [] Salvation [] Completed spiritual assessment [] Other: Impact on Illness or Injury [] Angry [] Fearful [] Anxious [] Often cries [] Exhaustion [] Unable to work [] Unable to attend yarsani [] Unable to walk/stand [] Unable to read [] Unable to drive [] Unable to eat/drink [] Unable to sleep [] Unable to be with family [] Patient intubated [] Other: Summary Time spent with patient
[2025-06-16] MEDS: calcium gluconate 0.9% NaCL 1 GM/50 ML PREMIX IV (09:58)
--- NOTE | 2025-06-16 11:05 | P.PN_ITS ---
Subjective 2 Subjective: No acute events overnight. States she is feeling a lot better. Able to ambulate with less difficulty in breathing. Appreciate evaluation. Sitting up in chair today. Vitals/I&O/Wt Last Vital Signs Temp 99.0 F 06/16/25 07:33 Pulse 83 06/16/25 08:12 Resp 16 06/16/25 08:12 BP 147/64 06/16/25 07:33 Pulse Ox 93 06/16/25 08:12 O2 Del Method Nasal Cannula 06/16/25 08:12 O2 Flow Rate 2 06/16/25 08:12 06/15/25 06/16/25 06/16/25 22:59 06:59 14:59 Intake Total 360 / 1165.833 50 / 4380.401 1165.167 / 1214.167 Output Total 400 / 1000 500 / 1500 300 / 300 Balance -40 / 165.833 -450 / -284.167 914.167 / 914.167 Weight last 48 hrs Weight 49.895 kg Weight 48.081 kg Physical Exam 2 Narrative: General: No acute distress, AO x3 HEENT: PERRLA, pupils bilaterally equal and reactive Chest:Bilateral bronchial breath sounds all lung zhu coarse crackles diffusely, rhonchi diffusely of lower lung zhu CVS: S1-S2 regular, no murmurs, no tachycardia, no gallops, no rubs Abdomen: Soft, nontender, no organomegaly, bowel sounds present Neuro: No focal deficits, no facial deformity, AO x3, power 5/5 in all limbs Data 06/16/25 01:31 06/16/25 01:31 Micro: Microbiology 06/14/25 19:34 Blood Culture - Preliminary Blood NEGATIVE TO DATE 06/14/25 19:33 Blood Culture - Preliminary Blood NEGATIVE TO DATE A&P Assessment and plan 1. Acute hyperkalemia: 2. Dehydration: 3. Acute on chronic hypoxic respiratory failure: 4. COPD (chronic obstructive pulmonary disease): 5. Pleural effusion: 6. Pulmonary fibrosis: 7. Dysphagia: 8. 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 History of malignant melanoma: 11. Hypernatremia: Plan: Hypernatremia and hyperkalemia on admission: Hyperkalemia resolved. Patient having recurrent hyponatremia. Most likely static of dehydration due to poor oral intake of liquid. Patient was recently transition to thicken fluids because of dysphagia since then oral intake have decreased. Encourage patient for increased oral intake of fluid up to 50 ounces daily. Start on D5 half NS at 50 cc/h for 1000 cc Repeat BMP in afternoon. Dyspnea on exertion/acute on chronic hypoxic respiratory failure/pulmonary fibrosis/COPD exacerbation: Oxygen supplementation keeping saturation over 88%. Appreciate chest x-ray with similar looking bilateral pleural effusion. No concern for pneumonia for now. Patient has a history of Pseudomonas pneumonia. Complaining of increased expectoration recently. Continue with home dose of Mucinex. Sputum culture. For now start on IV meropenem 2 g every 12 hourly. Will transition to oral antibiotics for 1 week on discharge. Physical therapy evaluation. Discharge plan: Patient states she lives with an elderly . Stating having increased difficulty in breathing on exertion recently. Requesting transition to SNF versus assisted living. Discharge to SNF. Case management alerted. Hypertension: Goal blood pressure less than 140/90 mmhg. Continue with home dose of lisinopril. Holding off on home dose of Coreg. Protonix for PUD prophylaxis Cardiac diet. Switch to thickened liquids given concerns for chronic dysphagia. Heparin 5000 every 12 hourly for DVT prophylaxis CODE STATUS: Discussed in detail with patient and family at bedside. DNR/DNI Plan for the day: Continue with physical therapy. Follow-up sputum culture. Empirically continue with IV meropenem for now. Goal blood pressure less than 140/90 mmHg. Patient does have hyperkalemia today. Will treat with Kayexalate 15 g one-time, 1 g of IV calcium gluconate. Repeat BMP in afternoon. For now we will hold off on home dose of lisinopril and start on amlodipine 10 mg oral daily. Will uptitrate as per goal blood pressure. Given her precarious oral intake, it would be better to discontinue HESHAM/ARB completely for the patient. Patient is not a diabetic. Continue with prednisone 40 mg oral daily for a 5-day course. Nebulization treatment. Repeat BMP in afternoon. Appreciate speech evaluation. Can change to diet and liquid consistency depending on MBS. PDMP PDMP Reviewed: Not Reviewed Attestations 2 Medical Necessity Statement*: Requires further hospitalization for management of dehydration, hypernatremia, hyperkalemia while safe discharge planning is sought Diagnoses Acute hyperkalemia E87.5 Dehydration E86.0 Acute on chronic hypoxic respiratory failure J96.21 COPD (chronic obstructive pulmonary disease) J44.9 Pleural effusion J90 Pulmonary fibrosis J84.10 Dysphagia R13.10 Dyspnea on exertion R06.09 Urrutia syndrome H35.51 History of malignant melanoma Z85.820 Hypernatremia E87.0
--- NOTE | 2025-06-16 16:14 | FL_ITS ---
WS: [id number] MODIFIED BARIUM SWALLOW TECHNIQUE: Modified barium swallow with speech therapy using multiple consistencies. FLUOROSCOPY TIME: 2min [id number] CLINICAL INFORMATION: Oral dysphagia FINDINGS: Multiple consistencies utilized. Normal oropharyngeal phase. No evidence of darien aspiration or penetration. No difficulties with the thin liquids. Moderate esophageal dysmotility with esophageal spasm visualized with the barium tablet. Delayed transit of the barium tablet in the midesophagus which cleared with additional fluids. No focal stricture. FL/FL barium swallow modifd 87267 IMPRESSION: 1. No evidence of darien aspiration or penetration. 2. No difficulties with the thin liquids. 3. Moderate esophageal dysmotility with esophageal spasm and delayed emptying of the barium tablet. This cleared with additional fluids.
[2025-06-16 17:10] LABS: Anion Gap 11.6 (5-19); Blood Urea Nitrogen 35 mg/dL (8-23); Calcium 8.6 mg/dL (8.5-10.5); Carbon Dioxide 36 mmol/L (22-29); Chloride 100 mmol/L (98-107); Creatinine Clr Calc Pharmacy 41.2786; Glucose 127 mg/dL (65-115); Osmolality Calculated 306 mOsm/kg (285-295); Potassium 4.6 mmol/L (3.5-5.1); Sodium 143 mmol/L (136-145)
[2025-06-17] VITALS (9 sets, daily range): BP systolic 148–163; BP diastolic 68–71; PULSE 72–107; RESP 16–18; TEMP 36.7–37.2; O2SAT 93–98
[2025-06-17] MEDS: MEROPENEM 2,000 MG in sodium chloride 0.9% (plus) 50 ML 100 MG IV ×2 (00:13→12:14)
[2025-06-17] MEDS: heparin 5,000 unit/mL INJ 1 mL 5000 UNIT SUBCUT (02:21)
[2025-06-17 05:26] LABS: Hematocrit 32.0 % (36-47); Hemoglobin 9.40 g/dL (11.27-16.99); Mean Corpuscular HGB Conc 29.4 g/dL (30-55); Mean Corpuscular Hemoglobin 30.1 pg (27-33); Mean Corpuscular Volume 102.6 fl (85-98); Nucleated Red Blood Cells % 0 %; Platelet Count 358 10^3/cmm (157-399); Red Blood Count 3.12 10^6/uL (3.85-5.65); White Blood Count 15.03 10^3/uL (3.29-11.43)
[2025-06-17 05:41] LABS: Alanine Aminotransferase 9 U/L (0-33); Albumin Level 3.2 g/dL (3.5-5.2); Alkaline Phosphatase 66 U/L (35-105); Anion Gap 10.5 (5-19); Aspartate Amino Transferase 14 U/L (0-32); Blood Urea Nitrogen 33 mg/dL (8-23); Calcium 8.3 mg/dL (8.5-10.5); Carbon Dioxide 35 mmol/L (22-29); Chloride 102 mmol/L (98-107); Creatinine Clr Calc Pharmacy 41.2786; Globulin 3.1 g/dL (1.3-4.6); Glucose 115 mg/dL (65-115); Osmolality Calculated 304 mOsm/kg (285-295); Potassium 4.5 mmol/L (3.5-5.1); Sodium 143 mmol/L (136-145); Total Protein 6.3 g/dL (6.6-8.7)
[2025-06-17 05:51] LABS: Magnesium 2.4 mg/dL (1.7-2.3)
--- NOTE | 2025-06-17 09:51 | PC.CHAP ---
Pastoral Care Encounter/Spiritual Assessment Type of Contact [] Declined senior telecommunications technician visit [] Patient/Family/Request visit [] Outpatient visit [] Follow-up visit [] Physician referral [] Code/Alert [x] Routine visit [] Staff referral [] Actively dying [] Patient sleeping [] Family support [] [] Out of room [] Palliative care [] [] Receiving care in room [] Pre-surgical visit [] Trauma [] Long length of stay [] ICU visit [] Other: Relational/Emotional Strength [x] Patient feels connected with others/family/visitors/staff [] Distress [] Loneliness/isolation [] Abandonment Spirituality of Patient [x] Person of Mary [] Attends Yazidi of their Mary [x] Believes in Prayer [] Reads Bible or Confucianism materials [] There are Spiritual issues to be addressed Chamfering Machine Operator Interventions [x] Prayer [x] Active listening [x] Non-anxious presence [x] Spiritual/emotional support [] Crisis/trauma care [] Spiritual counseling [] Bereavement support [] Provided bereavement packet [] Provided Bible/devotional materials [] Provided toy/stuffed animal, coloring book to patient or family member [] Provided Communion [] Anointing/[place] [] Salvation [x] Completed spiritual assessment [] Other: Impact on Illness or Injury [] Angry [] Fearful [] Anxious [] Often cries [] Exhaustion [] Unable to work [] Unable to attend sikhism [] Unable to walk/stand [] Unable to read [] Unable to drive [] Unable to eat/drink [] Unable to sleep [] Unable to be with family [] Patient intubated [] Other: Summary Time spent with patient 10 min
--- NOTE | 2025-06-17 11:43 | P.DS_ITS ---
Discharge Providers Date of Admission: 06/14/25 01:45 Date of Discharge: June 17, 2025 Attending Provider at Admission: Mary Mac MD Attending Provider at Discharge: Sameer Abraham MD Primary Care Provider: Chet Stallings MD Diagnoses at Discharge Discharge Diagnosis 1. Acute hyperkalemia: 2. Dehydration: 3. Acute on chronic hypoxic respiratory failure: 4. COPD (chronic obstructive pulmonary disease): 5. Pleural effusion: 6. Pulmonary fibrosis: 7. Dysphagia: 8. 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 Hypernatremia: Reason for Visit Reason for Visit: SOB Gasping o2 80s Brief History: Alexandr Galvez is a 89 year old female medical history significant for COPD presenting to the emergency room complaining of shortness of breath. ABG obtained in the emergency room were significant for hypercapnic respiratory failure pH 7.38 and PCO2 is 63.1. Serum sodium 150 chloride 110 BUN 44 creatinine 0.9, serum chemistry depicks dehydration significant for high serum osmolarity with a proBNP of 3400 with an EF showing diastolic dysfunction at 60. Will start very gentle hydration with half-normal saline at 100/h and monitor. Hospital Course Hospital Course Patient was admitted to the hospital further evaluation and management of dehydration leading to hyperkalemia, hypernatremia. She was started on gentle IV hydration. Gradually her electrolytes improved. Her oral intake has been poor because of her being advised to take thickened liquids recently back in January after a modified barium swallow. Repeat barium swallow was done and patient was advanced to a regular thin liquid after which her hydration improved. She did not have any episode of aspiration during hospitalization. She worked well with physical therapy. She has been discharged in hemodynamically stable condition back home on adjusted antihypertensive of lisinopril 20 mg oral daily, amlodipine 10 mg oral daily, Coreg 6.25 mg twice daily. Lisinopril has been changed from twice daily to once daily because of a tenuous oral intake and repeated hyperkalemia during hospitalization. She is to repeat BMP in 1 week Physical Exam Narrative: General: No acute distress, AO x3 HEENT: PERRLA, pupils bilaterally equal and reactive Chest:Bilateral bronchial breath sounds all lung zhu coarse crackles diffusely, rhonchi diffusely of lower lung zhu CVS: S1-S2 regular, no murmurs, no tachycardia, no gallops, no rubs Abdomen: Soft, nontender, no organomegaly, bowel sounds present Neuro: No focal deficits, no facial deformity, AO x3, power 5/5 in all limbs Discharge Data Studies Completed and Pending Completed Studies During Hospitalization Category Date Time Status FL barium swallow modifd [id number] Routine Exams 06/16/25 16:14 Completed XR chest 1V portable [id number] Stat Exams 06/13/25 20:37 Completed Pending at discharge Category Date Time Status Blood Culture Stat Lab 06/14/25 19:33 Results Complete Blood Count w/Auto AM LABS Lab 06/18/25 04:00 Ordered Comprehensive Metabolic Panel AM LABS Lab 06/18/25 04:00 Ordered Comprehensive Metabolic Panel AM LABS Lab 06/19/25 04:00 Ordered Comprehensive Metabolic Panel AM LABS Lab 06/20/25 04:00 Ordered Sputum Culture and Gram Stain Routine Lab 06/15/25 17:10 Results Radiology Impressions Chest X-Ray 06/13/25 20:37 IMPRESSION: Probable small effusions or pleural thickening, [id number]. Modified Barium Swallow 06/16/25 16:14 IMPRESSION: 1. No evidence of darien aspiration or penetration. 2. No difficulties with the thin liquids. 3. Moderate esophageal dysmotility with esophageal spasm and delayed emptying of the barium tablet. This cleared with additional fluids. Laboratory Results WBC 15.03 10^3/uL (3.29-11.43) H 06/17/25 05:12 RBC 3.12 10^6/uL (3.85-5.65) L 06/17/25 05:12 Hgb 9.40 g/dL (11.27-16.99) L 06/17/25 05:12 Hct 32.0 % (36-47) L 06/17/25 05:12 MCV 102.6 fl (85-98) H 06/17/25 05:12 MCH 30.1 pg (27-33) 06/17/25 05:12 MCHC 29.4 g/dL (30-55) L 06/17/25 05:12 RDW 17.2 % (12.1-15.1) H 06/17/25 05:12 Plt Count 358 10^3/cmm (157-399) 06/17/25 05:12 MPV 9.8 fL (7.4-10.4) 06/17/25 05:12 Neut % (Auto) 73.5 % 06/17/25 05:12 Lymph % (Auto) 18.8 % 06/17/25 05:12 [place] % (Auto) 6.5 % 06/17/25 05:12 Eos % (Auto) 0.5 % 06/17/25 05:12 Baso % (Auto) 0.2 % 06/17/25 05:12 Neut # (Auto) 11.07 10^3/uL (1.8-7.7) H 06/17/25 05:12 Lymph # (Auto) 2.8 10^3/uL (0.8-4.8) 06/17/25 05:12 [place] # (Auto) 1.0 10^3/uL (0.2-0.9) H 06/17/25 05:12 Eos # (Auto) 0.1 10^3/uL (0.0-0.8) 06/17/25 05:12 Baso # (Auto) 0.0 10^3/uL (0.0-0.1) 06/17/25 05:12 Nucleated RBC % (auto) 0 % 06/17/25 05:12 Nucleated RBCs # 0.0 /100WBC 06/17/25 05:12 PT 13.10 SECONDS (12.1-14.9) 06/13/25 20:50 INR 0.93 (0.8-1.2) 06/13/25 20:50 Specimen Type Arterial 06/13/25 23:26 Sample Site Radial, right 06/13/25 23:26 ABG pH 7.38 (7.35-7.45) 06/13/25 23:26 ABG pCO2 63.1 mmHg (35-45) H* 06/13/25 23:26 ABG pO2 81.8 mmHg (80.0-100.0) 06/13/25 23:26 ABG HCO3 36.9 mmol/L (22-26) H 06/13/25 23:26 ABG Base Excess 10.1 mmol/L (-2.0-2.0) H 06/13/25 23:26 Wally Test Pos 06/13/25 23:26 Hematocrit 29.4 % (37-47) L 06/13/25 23:26 Hgb O2 Saturation 93.5 % (95-100) L 06/13/25 23:26 Carboxyhemoglobin 2.1 %THgb (0.4-20.1) 06/13/25 23:26 Methemoglobin 1.1 % (0.4-1.5) 06/13/25 23:26 Total Hemoglobin 9.6 g/dL (12-16) L 06/13/25 23:26 O2 Delivery Device Nc 06/13/25 23:26 O2 Liters/Min 2.0 % 06/13/25 23:26 Nuclear Test Technician ID [email or web address] 06/13/25 23:26 Sodium 143 mmol/L (136-145) 06/17/25 05:12 Potassium 4.5 mmol/L (3.5-5.1) 06/17/25 05:12 Chloride 102 mmol/L (98-107) 06/17/25 05:12 Carbon Dioxide 35 mmol/L (22-29) H 06/17/25 05:12 Anion Gap 10.5 (5-19) 06/17/25 05:12 BUN 33 mg/dL (8-23) H 06/17/25 05:12 Creatinine 0.7 mg/dL (0.5-0.9) 06/17/25 05:12 GFR Calculation Not Reportable 06/17/25 05:12 Glucose 115 mg/dL (65-115) 06/17/25 05:12 Estimat Average Glucose 105 06/14/25 04:25 Hemoglobin A1c 5.3 % (4.0-6.0) 06/14/25 04:25 Calculated Osmolality 304 mOsm/kg (285-295) H 06/17/25 05:12 Lactic Acid 0.8 mmol/L (0.5-2.2) 06/13/25 20:50 Calcium 8.3 mg/dL (8.5-10.5) L 06/17/25 05:12 Phosphorus 2.5 mg/dL (2.5-4.5) 06/14/25 04:25 Magnesium 2.4 mg/dL (1.7-2.3) H 06/17/25 05:12 Iron 41 ug/dL (37-145) 06/14/25 19:33 TIBC 254 mcg/dl 06/14/25 19:33 % Saturation 16.1 % (20-50) L 06/14/25 19:33 Unsat Iron Binding 213 ug/dL (112-347) 06/14/25 19:33 Total Bilirubin 0.2 mg/dL (0.15-1.2) 06/17/25 05:12 AST 14 U/L (0-32) 06/17/25 05:12 ALT 9 U/L (0-33) 06/17/25 05:12 Alkaline Phosphatase 66 U/L (35-105) 06/17/25 05:12 Troponin T Baseline 26 ng/L (0-10) H 06/13/25 20:50 Troponin T 120 Minute 26.93 ng/L (0-10) H 06/14/25 01:30 Delta Troponin T 0.93 ABS# (0-10) 06/14/25 01:30 NT-Pro-B Natriuret Pep 3403 pg/mL (0-450) H 06/13/25 20:50 Total Protein 6.3 g/dL (6.6-8.7) L 06/17/25 05:12 Albumin 3.2 g/dL (3.5-5.2) L 06/17/25 05:12 Globulin 3.1 g/dL (1.3-4.6) 06/17/25 05:12 Triglycerides 57 mg/dL (0-150) 06/15/25 02:14 Cholesterol 152 mg/dL (0-200) 06/15/25 02:14 LDL Cholesterol, Calc 106 mg/dL (50-129) 06/15/25 02:14 Total VLDL Cholesterol 11 mg/dL (0-30) 06/15/25 02:14 HDL Cholesterol 35 mg/dL (60-100) L 06/15/25 02:14 Cholesterol/HDL Ratio 4.34 mg/dL (0.0-4.40) 06/15/25 02:14 Vitamin B12 343 pg/mL (232-1245) 06/14/25 19:33 Folate 16.8 ng/mL (4.8-37.3) 06/15/25 02:14 Procalcitonin 0.06 ng/mL (0-0.5) 06/14/25 19:33 TSH 3.30 uIU/mL (0.27-4.20) 06/14/25 04:25 Urine Color Yellow (Yellow) 06/13/25 21:40 Urine Appearance Clear (CLEAR) 06/13/25 21:40 Urine pH 5.0 (5-7) 06/13/25 21:40 Ur Specific [place] 1.010 (1.005-1.030) 06/13/25 21:40 Urine Protein Negative (Negative) 06/13/25 21:40 Urine Glucose (UA) Negative (Normal) 06/13/25 21:40 Urine Ketones Negative (Negative) 06/13/25 21:40 Urine Blood Negative (Negative) 06/13/25 21:40 Urine Nitrate Negative (Negative) 06/13/25 21:40 Urine Bilirubin Negative (Negative) 06/13/25 21:40 Urine Urobilinogen 0.2 mg/dL (Negative) 06/13/25 21:40 Ur Leukocyte Esterase Negative (Negative) 06/13/25 21:40 Urine RBC 0-2 /hpf (0-2) 06/13/25 21:40 Urine WBC 0-5 /hpf (0-5) 06/13/25 21:40 Ur Squamous Epith Cells 0-5 /hpf (0-5) 06/13/25 21:40 Amorphous Sediment Not Reportable 06/13/25 21:40 Urine Bacteria None seen /hpf (NONE) 06/13/25 21:40 Hyaline Casts 1.21 /lpf 06/13/25 21:40 Vitals Last Vital Signs Temp 98.1 F 06/17/25 07:59 Pulse 83 06/17/25 08:11 Resp 16 06/17/25 08:11 BP 163/68 06/17/25 07:59 Pulse Ox 97 06/17/25 08:11 O2 Del Method Nasal Cannula 06/17/25 08:11 O2 Flow Rate 2 06/17/25 08:11 Discharge Plan Discharge Patient Disposition: Home Condition: Stable Prescriptions: New prednisone 20 mg Tablet 40 mg PO DAILY 2 Days Qty: 4 0RF ipratropium-albuterol 0.5 mg-3 mg(2.5 mg base)/3 mL Solution For Nebulization 3 ml inhalation Q8H 14 Days Qty: 90 0RF carvedilol [Coreg] 6.25 mg tablet 6.25 mg PO Q12H Qty: 60 0RF Rx Instructions: must administer with a meal/food amlodipine 10 mg Tablet 10 mg PO DAILY Qty: 30 0RF Continued latanoprost 0.005 % drops 1 drp ophthalmic (eye) QPM Rx Instructions: each eye Trelegy Ellipta 100-62.5-25 mcg blister with device 1 inh inhalation DAILY Qty: 60 3RF megestrol 400 mg/10 mL (10 mL) suspension 200 mg PO BID Qty: 400 11RF ascorbic acid (vitamin C) [Vitamin C] 500 mg Tablet 500 mg PO DAILY dorzolamide-timolol 22.3-6.8 mg/mL drops 1 drp ophthalmic (eye) BID cholecalciferol (vitamin D3) [Vitamin D3] 25 mcg (1,000 unit) Capsule 25 mcg PO DAILY acetaminophen 500 mg Tablet 500 mg PO Q6H PRN (Reason: Pain) guaifenesin [Mucinex] 1,200 mg Tablet Extended Release 12hr 1,200 mg PO BID Changed lisinopril 20 mg tablet 20 mg PO DAILY Qty: 180 3RF Discontinued carvedilol 25 mg tablet 25 mg PO BID Qty: 180 3RF Rx Instructions: must administer with a meal/food Discharge Order = DC NOW: Discharge Order (Routine); Ordered 06/17/25 Ordered By: Sameer Abraham Referrals: Chet Stallings MD [Primary Care Provider, Family Practice] - 7-10 days Discharge Diet: Cardiac Discharge Activity: Resume usual activity and Increase activity as tolerated Patient Instructions: Opioid Safety, Patient Portal & Janice Instructions Activity Restrictions/Additional Instructions: Follow-up with your primary care provider within next 1 week. Repeat BMP in 1 week. Maintain your oral intake of liquid with at least 50 ounces of liquid daily. Check your blood pressure daily at home and maintain a blood pressure diary. Goal blood pressure is between 100?140 systolic. Dose of lisinopril has been changed to 20 mg daily. Amlodipine 10 mg oral daily has been added to your medication list. Coreg has been changed to 6.25 mg twice daily. Discharge Attestations Time Spent in Discharge Care*: greater than 30 min Specific Discharge Activities: educating patient, educating and/or supporting family/caregiver, discussing with pcp/other providers, discussing with manager of case management/social workers/dc planners, documenting/other paperwork and evaluating patient/reviewing data Status at Discharge: Cognitive status at discharge: cognitively intact , Behavioral status at discharge: cooperative , Functional status at discharge: uses cane/walker , Overall status at discharge: patient is back to baseline Quality Metrics Clinical Quality Measures [ No reported AMI, CVA or VTE this stay] Coding Level of Care Code 97861 Total time (in minutes) for Discharge: 65 Diagnoses Acute hyperkalemia E87.5 Dehydration E86.0 Acute on chronic hypoxic respiratory failure J96.21 COPD (chronic obstructive pulmonary disease) J44.9 Pleural effusion J90 Pulmonary fibrosis J84.10 Dysphagia R13.10 Dyspnea on exertion R06.09 Urrutia syndrome H35.51 History of malignant melanoma Z85.820 Hypernatremia E87.0
== END 2025-06-17 16:30 | disposition home or self-care (01) | DRG 640 ==
LOC: ER 06-14 01:43 → MEDSURG 06-14 02:41
PROVIDERS: Student in an Organized Health Care Education/Training Program; Admitting Provider Internal Medicine; Emergency Provider Emergency Medicine; PCP Family Medicine; Visit Provider Student in an Organized Health Care Education/Training Program
DX: E87.0 Hyperosmolality and hypernatremia (principal); I50.31 Acute diastolic (congestive) heart failure; J96.21 Acute and chronic respiratory failure with hypoxia; M31.30 Wegener's granulomatosis without renal involvement; E86.0 Dehydration; E87.5 Hyperkalemia; J44.9 Chronic obstructive pulmonary disease, unspecified; J84.10 Pulmonary fibrosis, unspecified; R13.10 Dysphagia, unspecified; I11.0 Hypertensive heart disease with heart failure; Z79.51 Long term (current) use of inhaled steroids; Z85.820 Personal history of malignant melanoma of skin
CPT/HCPCS: 36415; 36600; 71045; 74230; 80048; 80053; 80061; 81001; 82607; 82746; 82805; 83036; 83540; 83550; 83605; 83735; 83880; 84100; 84145; 84443; 84484; 85025; 85610; 87040; 87070; 87205; 92611; 93005; 94640; 96372; 96374; 97110; 97116; 97161; 97167; 97530; 97535; 99285; J0456; J0612; J0696; J1644; J1938; J2185; J7050; J7512; J7799; J9999

== ENCOUNTER 2025-07-13 10:09 | Outpatient (CLI) | payer MEDICARE, SELFPAY ==
--- NOTE | 2025-07-13 10:16 | XR_ITS ---
WS: [id number] XR chest 2V* [id number] REASON FOR EXAM: dyspnea FINDINGS: There is mild tortuosity of the thoracic aorta. There is cardiomegaly. There is central pulmonary venous congestion. There are increased reticular interstitial opacities in both lower lungs with mild peribronchial cuffing. The left lower lung is improved compared to the previous examination of 06/13/2025. Compared to the examination of 06/13/2025, a small right pleural effusion persists and is relatively unchanged. There is a left pleural effusion which may be somewhat reduced compared to the previous examination. No new findings. XR/XR chest 2V* [id number] IMPRESSION: Chronic congestive heart failure with interval changes as above.
== END 2025-07-13 10:10 | disposition home or self-care (01) ==
PROVIDERS: PCP Family Medicine; Visit Provider Family Medicine
DX: J44.1 Chronic obstructive pulmonary disease with (acute) exacerbation (principal); I50.9 Heart failure, unspecified; I87.8 Other specified disorders of veins; J90 Pleural effusion, not elsewhere classified
CPT/HCPCS: 71046

== ENCOUNTER → 2025-07-22 12:08 | Outpatient (BNVA) | payer MEDICARE, SELFPAY | PROVIDERS: PCP Family Medicine; Visit Provider Family Medicine | DX: I50.30 Unspecified diastolic (congestive) heart failure (principal); H35.51 Vitreoretinal dystrophy | CPT/HCPCS: 80048; 86036 ==

== ENCOUNTER → 2025-08-10 08:35 | Outpatient (BNVA) | payer MEDICARE, SELFPAY | PROVIDERS: PCP Family Medicine; Visit Provider Internal Medicine | DX: J96.11 Chronic respiratory failure with hypoxia (principal); Z99.81 Dependence on supplemental oxygen; J84.10 Pulmonary fibrosis, unspecified; M31.31 Wegener's granulomatosis with renal involvement; J47.9 Bronchiectasis, uncomplicated; Z87.09 Personal history of other diseases of the respiratory system; J44.1 Chronic obstructive pulmonary disease with (acute) exacerbation | CPT/HCPCS: 36415; 85025; 99205; Q3014 ==

== ENCOUNTER 2025-09-04 09:52 | Outpatient (CLI) | payer MEDICARE, SELFPAY ==
--- NOTE | 2025-09-04 10:11 | XR_ITS ---
WS: [id number] XR chest 2V* [id number] REASON FOR EXAM: Bronchiectasis FINDINGS: Mild to moderate tortuosity of the thoracic aorta. Mild cardiomegaly with mild central pulmonary venous congestion. Chronic reticular interstitial changes with peribronchial cuffing compatible with chronic congestive failure. Compared to the examination of 07/13/2025 there appears to have been reduction in the left pleural effusion. The right pleural effusion appears unchanged. New opacity left retrocardiac region which appears to be an area of atelectasis/airspace consolidation associated with an area of bronchiectasis. No other significant interval change or new finding. XR/XR chest 2V* [id number] IMPRESSION: Decreased left pleural effusion. No abnormality in the left lower lung of unknown chronicity may indicate active inflammatory disease associated with bronchiectasis.
== END 2025-09-04 09:53 | disposition home or self-care (01) ==
PROVIDERS: PCP Family Medicine; Visit Provider Internal Medicine
DX: J96.11 Chronic respiratory failure with hypoxia (principal); Z99.81 Dependence on supplemental oxygen; J84.10 Pulmonary fibrosis, unspecified; J47.9 Bronchiectasis, uncomplicated; M31.30 Wegener's granulomatosis without renal involvement; Z87.09 Personal history of other diseases of the respiratory system; J44.9 Chronic obstructive pulmonary disease, unspecified
CPT/HCPCS: 71046; 99215; Q3014